=== PATIENT | male | born 1950 | race Caucasian/White ===

== ENCOUNTER 2019-05-20 19:27 | Emergency (ER) | payer BC, MEDICARE ==
[2019-05-20 19:40] VITALS: TEMP 98
[2019-05-20] MEDS ORDERED: HYDROmorphone 1 MG/ML 1 ML SYRINGE IVP STA (20:21)
[2019-05-20] MEDS ORDERED: TOPICAL SKIN ADHESIVE 1 EACH AMP TOPICAL ONE (20:22)
--- NOTE | 2019-05-20 20:41 | ED ---
Fall HPI - General Source: patient, EMS, RN notes reviewed Mode of arrival: EMS Limitations: no limitations <Juan Antonio Beltre - Last Filed: 05/20/19 22:31> <Helder Garcia - Last Filed: 05/20/19 23:30> - General Chief Complaint: Fall Stated Complaint: Fall Time Seen by Provider: 05/20/19 20:16 - History of Present Illness Initial Comments: This a 68-year-old male presents emergency department via EMS chief complaint of slip and fall. Patient states he was outside sitting on some ice and fell onto his left side. Patient did strike his head he has a laceration noted to his left side of his forehead. Patient did not lose consciousness. Has complains of left shoulder pain denies neck, back pain, hip pain. His tetanus is up-to-date within last one year. Patient states his primary complaint is left shoulder pain he was given morphine by EMS. (Juan Antonio Beltre) - Related Data Home Medications Medication Instructions Recorded Confirmed Atorvastatin [Lipitor] 40 mg PO HS 05/20/19 05/20/19 Furosemide [Lasix] 20 mg PO BID 05/20/19 05/20/19 Gemfibrozil [Lopid] 600 mg PO AC-BID 05/20/19 05/20/19 Metoprolol Tartrate [Lopressor] 50 mg PO BID 05/20/19 05/20/19 metFORMIN HCL 500 mg PO BID 05/20/19 05/20/19 tiZANidine [Zanaflex] 4 mg PO BID@0600,1200 05/20/19 05/20/19 tiZANidine [Zanaflex] 8 mg PO HS 05/20/19 05/20/19 Allergies Allergy/AdvReac Type Severity Reaction Status Date / Time No Known Allergies Allergy Verified 05/20/19 21:26 Review of Systems ROS Other: All systems not noted in ROS Statement are negative. <Juan Antonio Beltre - Last Filed: 05/20/19 22:31> ROS Other: All systems not noted in ROS Statement are negative. <Helder Garcia - Last Filed: 05/20/19 23:30> ROS Statement: Those systems with pertinent positive or pertinent negative responses have been documented in the HPI. Past Medical History Past Medical History: Diabetes Mellitus, Hypertension History of Any Multi-Drug Resistant Organisms: None Reported Past Surgical History: Unable to Obtain Past Psychological History: No Psychological Hx Reported Smoking Status: Never smoker Past Alcohol Use History: None Reported Past Drug Use History: Marijuana <Juan Antonio Beltre M - Last Filed: 05/20/19 22:31> General Exam Limitations: physical limitation General appearance: alert, in no apparent distress Head exam: Present: atraumatic, normocephalic. Absent: normal inspection (3 cm laceration the left forehead) Eye exam: Present: normal appearance, PERRL, EOMI. Absent: scleral icterus, conjunctival injection, periorbital swelling ENT exam: Present: normal exam, normal oropharynx, mucous membranes moist Neck exam: Present: normal inspection, full ROM. Absent: tenderness, meningismus, lymphadenopathy Respiratory exam: Present: normal lung sounds bilaterally. Absent: respiratory distress, wheezes, rales, rhonchi, stridor Cardiovascular Exam: Present: regular rate, normal rhythm, normal heart sounds. Absent: systolic murmur, diastolic murmur, rubs, gallop, clicks Extremities exam: Present: other (Left shoulder there is obvious deformity, appears to be dislocated, neurovascular intact remaining extremity exam within normal limits) Back exam: Present: full ROM. Absent: tenderness, paraspinal tenderness, vertebral tenderness Neurological exam: Present: alert, oriented X3, CN II-XII intact, reflexes normal. Absent: motor sensory deficit Skin exam: Present: warm, dry, intact, normal color. Absent: rash <Juan Antonio Beltre M - Last Filed: 05/20/19 22:31> Course Vital Signs 05/20/19 05/20/19 05/20/19 19:35 22:14 22:21 Temperature 98.0 F Pulse Rate 76 76 80 Respiratory 16 18 18 Rate Blood Pressure 100/48 119/74 162/92 O2 Sat by Pulse 93 L 97 98 Oximetry 05/20/19 05/20/19 05/20/19 22:25 22:30 22:35 Temperature Pulse Rate 74 75 79 Respiratory 17 18 18 Rate Blood Pressure 137/81 133/78 142/78 O2 Sat by Pulse 98 98 98 Oximetry 05/20/19 05/20/19 22:40 22:55 Temperature Pulse Rate 79 79 Respiratory 17 18 Rate Blood Pressure 145/76 133/78 O2 Sat by Pulse 99 98 Oximetry Procedures - Laceration Laceration #1 Consent Obtained: verbal consent Indication: laceration Site: face Size (cm): 3 Description: linear Depth: simple, single layer Pre-repair: wound explored, irrigated extensively, deep structures intact Type of Sutures: other (Dermal adhesive) Patient Tolerated Procedure: well, no complications <Juan Antonio Beltre - Last Filed: 05/20/19 22:31> - Orthopedic Joint Reduction Joint #1 Consent Obtained: written consent Side: left Joint Reduction Location: shoulder Analgesia: procedural sedation Shoulder Technique Used (if applicable): external rotation Post-Reduction Neuro Exam: intact Post-Reduction Vascular Exam: intact Post Reduction X-Ray Obtained: Yes Post Reduction X-Ray Results: reduced Splint Applied: Yes Patient Tolerated Procedure: well, no complications - Procedural Sedation Indications: fracture/dislocation reduction ASA Class: II Mallampati Airway Score: 4 Preparation: air sampling and monitoring applied, pulse oximeter, capnometry used, supplemental O2 applied, suction/airway equipment at bedside, IV secured IV Etomidate Dose (mgs): 20 Complications: none Patient Tolerated Procedure: well, no complications <Helder Garcia - Last Filed: 05/20/19 23:30> Medical Decision Making <Juan Antonio Beltre - Last Filed: 05/20/19 22:31> <Helder Garcia - Last Filed: 05/20/19 23:30> - Medical Decision Making 59-year-old male presented for fall, head injury, left shoulder injury. Patient had dislocated her left shoulder which was reduced with no comp occasional was placed in a sling. Patient will follow-up with orthopedics. Patient CT of his brain, C-spine is unremarkable his laceration was cleaned, closed using exofin . Patient is discharged in stable condition. Return parameters were discussed. (Juan Antonio Beltre) I saw this patient in conjunction with the physician medical assistant per diem. I performed independent history and physical exam. Agree with case management. (Lj Garcia ) Disposition Is patient prescribed a controlled substance at d/c from ED?: No Time of Disposition: 22:39 <Juan Antonio Beltre - Last Filed: 05/20/19 22:31> <Helder Garcia - Last Filed: 05/20/19 23:30> Clinical Impression: Fall, Head injury, Laceration of face, Dislocation of left shoulder joint Disposition: HOME SELF-CARE Condition: Stable Instructions (If sedation given, give patient instructions): Shoulder Dislocation (ED), Moderate Sedation (ED) Additional Instructions: Please return to the Emergency Department if symptoms worsen or any other concerns. Referrals: Elvira Wei MD [Primary Care Provider] - 1-2 days Ivan Regalado MD [STAFF PHYSICIAN] - 1-2 days
--- NOTE | 2019-05-20 21:03 | XR ---
EXAMINATION TYPE: XR shoulder limited LT DATE OF EXAM: 05/20/2019 COMPARISON: NONE HISTORY: Fall. Pain. TECHNIQUE: 2 views FINDINGS: There is anterior dislocation of the humeral head. I see no fracture. IMPRESSION: Anterior dislocation.
[2019-05-20] MEDS ORDERED: ETOMIDATE 2 MG/ML 10 ML VIAL IV STA (21:09)
--- NOTE | 2019-05-20 21:22 | CT ---
EXAMINATION TYPE: CT brain nicola wo con DATE OF EXAM: 05/20/2019 COMPARISON: None HISTORY: Fall. Headache. Neck pain CT DLP: 1983 mGycm Automated exposure control for dose reduction was used. Multiple axial sections were obtained from the skull base to T1 vertebra without contrast. Multiple a xial sections were obtained of the brain without contrast. FINDINGS: There is mild cerebral cortical atrophy. There is no mass effect nor midline shift. There is no sign of intracranial hemorrhage. The calvarium is intact. Cervical vertebra have fairly normal spacing and alignment for the patient's age. Posterior elements are intact. Facet joints are intact. There is no evidence of a fracture. IMPRESSION: Minimal cerebral atrophy. No acute intracranial abnormality. negative CT scan cervical spine.
[2019-05-20] MEDS ORDERED: ACET/COD 300 MG/30 MG STARTER PACK 6 TAB BTL PO STA (22:40)
--- NOTE | 2019-05-20 22:55 | XR ---
EXAMINATION TYPE: XR shoulder limited LT DATE OF EXAM: 05/20/2019 COMPARISON: Today HISTORY: Post reduction TECHNIQUE: Single view FINDINGS: There is anatomic reduction of the glenohumeral joint. IMPRESSION: No complicating process seen. Anatomic reduction. No fracture.
[2019-05-20 23:05] VITALS: RESP 18
[2019-05-20 23:58] VITALS: PULSE 80
[2019-05-21 00:17] VITALS: BP 133/80
== END 2019-05-21 00:21 | disposition home or self-care (01) ==
LOC: EC 19:27
DX: S01.81XA Laceration without foreign body of other part of head, initial encounter (principal); S43.005A Unspecified dislocation of left shoulder joint, initial encounter; E11.9 Type 2 diabetes mellitus without complications; I10 Essential (primary) hypertension; Z79.84 Long term (current) use of oral hypoglycemic drugs; Z79.899 Other long term (current) drug therapy; W18.09XA Striking against other object with subsequent fall, initial encounter
CPT/HCPCS: 73020; 72125; 70450; 99284; 23650; 12013; J1170

== ENCOUNTER 2023-09-17 15:49 | Inpatient (IN) | payer MEDICARE, OTHER ==
--- NOTE | 2023-09-17 15:58 | ED ---
Weakness HPI - General Stated complaint: N/V/D Poss Sepsis Time Seen by Provider: 09/17/23 15:56 Source: patient, RN notes reviewed, old records reviewed Mode of arrival: EMS Limitations: no limitations - History of Present Illness Initial comments: This is a 73-year-old male to the ER today. Patient presents today for evaluation of weakness. Patient had nausea vomiting diarrhea weakness persisting and getting worse for about a week now. He is also has a known lower extremity wound which is poorly healed. Patient does not feel well, weak and tired MD Complaint: generalized weakness, lack of energy, difficulty walking -: days(s) Location: generalized Severity: severe Severity scale (1-10): 9 Quality: numbness Consistency: constant Improves with: none Worsens with: none Context: recent illness, history of similar, depression Associated Symptoms: denies other symptoms - Related Data Home Medications Medication Instructions Recorded Confirmed Atorvastatin [Lipitor] 40 mg PO HS 05/20/19 09/17/23 Metoprolol Tartrate [Lopressor] 50 mg PO BID 05/20/19 09/17/23 tiZANidine [Zanaflex] 4 mg PO BID@0900,1200 05/20/19 09/17/23 tiZANidine [Zanaflex] 8 mg PO HS 05/20/19 09/17/23 Acetaminophen [Tylenol Extra 1,000 mg PO TID 09/17/23 09/17/23 Strength] Aspirin EC [Ecotrin Low Dose] 81 mg PO DAILY 09/17/23 09/17/23 Furosemide [Lasix] 40 mg PO BID 09/17/23 09/17/23 HYDROcodone/APAP 5-325MG [Denbo 1 tab PO BID 09/17/23 09/17/23 5-325] Allergies Allergy/AdvReac Type Severity Reaction Status Date / Time No Known Allergies Allergy Verified 09/17/23 17:34 Review of Systems ROS Statement: Those systems with pertinent positive or pertinent negative responses have been documented in the HPI. ROS Other: All systems not noted in ROS Statement are negative. Past Medical History Past Medical History: Diabetes Mellitus, Hypertension History of Any Multi-Drug Resistant Organisms: None Reported Past Surgical History: Unable to Obtain Past Psychological History: No Psychological Hx Reported Smoking Status: Never smoker Past Alcohol Use History: None Reported Past Drug Use History: Marijuana General Exam Limitations: no limitations General appearance: alert, in no apparent distress Head exam: Present: atraumatic, normocephalic, normal inspection Eye exam: Present: normal appearance, PERRL, EOMI. Absent: scleral icterus, conjunctival injection, periorbital swelling ENT exam: Present: normal exam, mucous membranes moist Neck exam: Present: normal inspection. Absent: tenderness, meningismus, lymphadenopathy Respiratory exam: Present: normal lung sounds bilaterally. Absent: respiratory distress, wheezes, rales, rhonchi, stridor Cardiovascular Exam: Present: regular rate, normal rhythm, normal heart sounds. Absent: systolic murmur, diastolic murmur, rubs, gallop, clicks GI/Abdominal exam: Present: soft, normal bowel sounds. Absent: distended, tenderness, guarding, rebound, rigid Extremities exam: Present: normal inspection, full ROM, normal capillary refill. Absent: tenderness, pedal edema, joint swelling, calf tenderness Back exam: Present: normal inspection Neurological exam: Present: alert, oriented X3, CN II-XII intact Psychiatric exam: Present: normal affect, normal mood Skin exam: Present: warm, dry, intact, normal color. Absent: rash Course Vital Signs 09/17/23 09/17/23 09/17/23 15:52 17:00 18:00 Temperature 98.4 F Pulse Rate 105 H 102 H 96 Respiratory 20 18 20 Rate Blood Pressure 145/92 156/98 146/88 O2 Sat by Pulse 94 L 97 98 Oximetry 09/17/23 20:10 Temperature Pulse Rate 98 Respiratory 20 Rate Blood Pressure 147/81 O2 Sat by Pulse 97 Oximetry - Reevaluation(s) Reevaluation #1: 09/17/23 18:03 Medical records reviewed Reevaluation #2: 09/17/23 18:03 Patient symptoms unchanged Reevaluation #3: 09/17/23 18:03 Patient informed of results and questions answered Reevaluation #4: Was pt. sent in by a medical professional or institution (, PA, COPY CAMERA OPERATOR, urgent care, hospital, or [facility]...) When possible be specific @ -no Did you speak to anyone other than the patient for history (EMS, parent, family, police, friend...)? What history was obtained from this source @ -no Did you review nursing and triage notes (agree or disagree)? Why? @ -agree Are old charts reviewed (outside hosp., previous admission, EMS record, old EKG, old radiological studies, urgent care reports/EKG's, [facility] records)? Report findings @ -yes Differential Diagnosis (chest pain, altered mental status, abdominal pain women, abdominal pain men, vaginal bleeding, weakness, fever, dyspnea, syncope, headache, dizziness, GI bleed, back pain, seizure, CVA, palpatations, mental health, musculoskeletal)? @ -prior EKG interpreted by me (3pts min.). @ -yes X-rays interpreted by me (1pt min.). @ -no CT interpreted by me (1pt min.). @ -no U/S interpreted by me (1pt. min.). @ -yes negative for acute disease What testing was considered but not performed or refused? (CT, X-rays, U/S, labs)? Why? @ -none What meds were considered but not given or refused? Why? @ -none Did you discuss the management of the patient with other professionals (professionals i.e. , PA, COPY CAMERA OPERATOR, lab, RT, psych nurse, social work coordinator, literature teacher, teacher, appeals officer, business case analyst)? Give summary @ -no Was smoking cessation discussed for >3mins.? @ -no Were there social determinants of health that impacted care today? How? (Homelessness, low income, unemployed, alcoholism, drug addiction, transportation, low edu. Level, literacy, decrease access to med. care, skilled nursing, rehab)? @ -none Was there de-escalation of care discussed even if they declined (Discuss DNR or withdrawal of care, Hospice)? DNR status @ -no What co-morbidities impacted this encounter? (DM, HTN, Smoking, COPD, CAD, Cancer, CVA, ARF, Chemo, Hep., AIDS, mental health diagnosis, sleep apnea, morbid obesity)? @ -none Was patient admitted / discharged? Hospital course, mention meds given and route, prescriptions, significant lab abnormalities, going to OR and other pertinent info. @ - 73 male with significant cellulitis of the right lower extremity. Patient will be admitted for IV antibiotics and monitoring of diarrhea with persistent gastroenteritis as well. Multiple electrolyte abnormalities Admitted Was critical care preformed (if so, how long)? @ -no Undiagnosed new problem with uncertain prognosis? @ -no Drug Therapy requiring intensive monitoring for toxicity (Heparin, Nitro, Insulin, Cardizem)? @ -no Were any procedures done? @ -no Diagnosis/symptom? @ -Gastroenteritis right lower extremity cellulitis nausea vomiting diarrhea Acute, or Chronic, or Acute on Chronic? @ -Acute Uncomplicated (without systemic symptoms) or Complicated (systemic symptoms)? @ -Complicated Side effects of treatment? @ -no Exacerbation, Progression, or Severe Exacerbation? @ -exacerbation Poses a threat to life or bodily function? How? (Chest pain, USA, DC, pneumonia, PE, COPD, DKA, ARF, appy, cholecystitis, CVA, Diverticulitis, Homicidal, Suicidal, threat to staff... and all critical care pts) @ -yes negative for acute disease Reevaluation #5: Differential Weakness: Hypoglycemia, shock, sepsis, hyponatremia, anemia, infection, DC, ETOH, adverse medicine reaction, overdose, stroke, this is not meant to be an all-inclusive list. - Consultations Consultation #1: Spoke with [facility] who agrees to admit this patient EKG Findings - EKG Comments: EKG Findings:: EKG is sinus tachycardia 105 GA 202 QRS 169 QTc 440 - EKG Results: EKG: interpreted by DOMINIC Medical Decision Making - Medical Decision Making 73 male with significant cellulitis of the right lower extremity. Patient will be admitted for IV antibiotics and monitoring of diarrhea with persistent gastroenteritis as well. Multiple electrolyte abnormalities - Lab Data Result diagrams: 09/24/23 08:16 09/24/23 08:16 Lab Results 09/17/23 09/17/23 09/17/23 Range/Units 15:59 15:59 15:59 WBC 16.7 H (3.8-10.6) k/uL RBC 4.36 (4.30-5.90) m/uL Hgb 14.6 (13.0-17.5) gm/dL Hct 42.2 (39.0-53.0) % MCV 96.7 (80.0-100.0) fL MCH 33.5 (25.0-35.0) pg MCHC 34.7 (31.0-37.0) g/dL RDW 14.1 (11.5-15.5) % Plt Count 272 (150-450) k/uL MPV 7.7 Neutrophils % 84 % Lymphocytes % 6 % Monocytes % 7 % Eosinophils % 0 % Basophils % 0 % Neutrophils # 14.1 H (1.3-7.7) k/uL Lymphocytes # 1.0 (1.0-4.8) k/uL Monocytes # 1.1 H (0-1.0) k/uL Eosinophils # 0.0 (0-0.7) k/uL Basophils # 0.0 (0-0.2) k/uL Poikilocytosis Slight PT 10.9 (10.0-12.5) sec INR 1.0 (<1.2) APTT 28.3 (22.0-30.0) sec Sodium 137 (137-145) mmol/L Potassium 2.9 L (3.5-5.1) mmol/L Chloride 101 (98-107) mmol/L Carbon Dioxide 26 (22-30) mmol/L Anion Gap 10 mmol/L BUN 21 H (9-20) mg/dL Creatinine 1.25 (0.66-1.25) mg/dL Est GFR (CKD-EPI)AfAm 66 (>60 ml/min/1.73 sqM) Est GFR (CKD-EPI)NonAf 57 (>60 ml/min/1.73 sqM) Glucose 126 H (74-99) mg/dL Lactic Ac Sepsis Rflx Plasma Lactic Acid Jonathan (0.7-2.0) mmol/L Calcium 8.9 (8.4-10.2) mg/dL Phosphorus 2.5 (2.5-4.5) mg/dL Magnesium 1.8 (1.6-2.3) mg/dL Total Bilirubin 4.0 H (0.2-1.3) mg/dL AST 54 (17-59) U/L ALT 29 (4-49) U/L Alkaline Phosphatase 84 (38-126) U/L Troponin I (0.000-0.034) ng/mL NT-Pro-B Natriuret Pep 1420 pg/mL Total Protein 6.9 (6.3-8.2) g/dL Albumin 3.6 (3.5-5.0) g/dL Lipase 34 (23-300) U/L 09/17/23 09/17/23 09/17/23 Range/Units 15:59 15:59 16:58 WBC (3.8-10.6) k/uL RBC (4.30-5.90) m/uL Hgb (13.0-17.5) gm/dL Hct (39.0-53.0) % MCV (80.0-100.0) fL MCH (25.0-35.0) pg MCHC (31.0-37.0) g/dL RDW (11.5-15.5) % Plt Count (150-450) k/uL MPV Neutrophils % % Lymphocytes % % Monocytes % % Eosinophils % % Basophils % % Neutrophils # (1.3-7.7) k/uL Lymphocytes # (1.0-4.8) k/uL Monocytes # (0-1.0) k/uL Eosinophils # (0-0.7) k/uL Basophils # (0-0.2) k/uL Poikilocytosis PT (10.0-12.5) sec INR (<1.2) APTT (22.0-30.0) sec Sodium (137-145) mmol/L Potassium (3.5-5.1) mmol/L Chloride (98-107) mmol/L Carbon Dioxide (22-30) mmol/L Anion Gap mmol/L BUN (9-20) mg/dL Creatinine (0.66-1.25) mg/dL Est GFR (CKD-EPI)AfAm (>60 ml/min/1.73 sqM) Est GFR (CKD-EPI)NonAf (>60 ml/min/1.73 sqM) Glucose (74-99) mg/dL Lactic Ac Sepsis Rflx Y Plasma Lactic Acid Jonathan 2.9 H* (0.7-2.0) mmol/L Calcium (8.4-10.2) mg/dL Phosphorus (2.5-4.5) mg/dL Magnesium (1.6-2.3) mg/dL Total Bilirubin (0.2-1.3) mg/dL AST (17-59) U/L ALT (4-49) U/L Alkaline Phosphatase (38-126) U/L Troponin I 0.052 H* (0.000-0.034) ng/mL NT-Pro-B Natriuret Pep pg/mL Total Protein (6.3-8.2) g/dL Albumin (3.5-5.0) g/dL Lipase (23-300) U/L - Radiology Data Radiology results: report reviewed (US Right Lower Extremity negative for acute disease ), image reviewed Disposition Clinical Impression: Gastroenteritis, Dehydration, Weakness, Cellulitis of right leg, Diabetes mellitus, Diarrhea Disposition: ADMITTED IP TO THIS HOSP Condition: Serious Is patient prescribed a controlled substance at d/c from ED?: No Time of Disposition: 18:00
[2023-09-17] MEDS: ONDANSETRON 4 MG/2 ML VIAL IVP STA (16:04)
[2023-09-17] MEDS: SODIUM CHLORIDE 0.9% 1,000 ML IV STA (16:05)
[2023-09-17 16:40] LABS: ALT 29 U/L (4-49); AST 54 U/L (17-59); African American GFR (CKD) 66 (>60 ml/min/1.73 sqM); Albumin 3.6 g/dL (3.5-5.0); Alkaline Phosphatase 84 U/L (38-126); Anion Gap 10 mmol/L; Basophils % (A) 0 %; Blood Urea Nitrogen 21 mg/dL (9-20); Calcium 8.9 mg/dL (8.4-10.2); Carbon Dioxide 26 mmol/L (22-30); Chloride 101 mmol/L (98-107); Eosinophils % (A) 0 %; Glucose 126 mg/dL (74-99); HCT 42.2 % (39.0-53.0); HGB 14.6 gm/dL (13.0-17.5); Lipase 34 U/L (23-300); Lymphocytes % (A) 6 %; MCH 33.5 pg (25.0-35.0); MCHC 34.7 g/dL (31.0-37.0); MCV 96.7 fL (80.0-100.0); Magnesium 1.8 mg/dL (1.6-2.3); Mean Platelet Volume 7.7; Monocytes # (A) 1.1 k/uL (0-1.0); Monocytes % (A) 7 %; Neutrophils # (A) 14.1 k/uL (1.3-7.7); Neutrophils % (A) 84 %; Non-African American GFR(CKD) 57 (>60 ml/min/1.73 sqM); Phosphorus 2.5 mg/dL (2.5-4.5); Platelet Count 272 k/uL (150-450); Poikilocytosis Slight; Potassium 2.9 mmol/L (3.5-5.1); RBC 4.36 m/uL (4.30-5.90); RDW 14.1 % (11.5-15.5); Sodium 137 mmol/L (137-145); Total Protein 6.9 g/dL (6.3-8.2); WBC 16.7 k/uL (3.8-10.6)
[2023-09-17 16:44] LABS: Partial Thromboplastin Time 28.3 sec (22.0-30.0); Prothrombin Time 10.9 sec (10.0-12.5)
[2023-09-17 16:46] LABS: NT-Pro-B-Type Natriuretic Pept 1420 pg/mL
[2023-09-17] MEDS ORDERED: VANCOMYCIN IV PER PHARMACY 1 EACH MISC MISCELLANE PRN (17:55)
[2023-09-17] MEDS ORDERED: NALOXONE 0.4 MG/ML 1 ML VIAL IV PRN (18:01)
--- NOTE | 2023-09-17 18:55 | US ---
EXAMINATION TYPE: US venous doppler duplex LE RT DATE OF EXAM: 09/17/2023 6:30 PM COMPARISON: NONE CLINICAL INDICATION: Male, 73 years old with history of dvt; Patient states leg swelling, wound on mi d calf with bandages. Patient unable to move leg. States that he has never had a DVT before, and that he takes an aspirin daily. SIDE PERFORMED: Right TECHNIQUE: The lower extremity deep venous system is examined utilizing real time linear array sonog judith with graded compression, doppler sonography and color-flow sonography. VESSELS IMAGED: Common Femoral Vein Deep Femoral Vein Greater Saphenous Vein * Femoral Vein Popliteal Vein Small Saphenous Vein * Proximal Calf Veins (* superficial vessels) Suboptimal visualization due to leg swelling and lack of patient leg mobility The deep venous system of the right lower extremity from the common femoral vein to the proximal calf veins is patent and compressible with augmentable flow with normal waveforms. IMPRESSION: No evidence of right lower extremity DVT from the common femoral vein to the proximal calf veins
[2023-09-17] MEDS: HYDROmorphone 1 MG/ML 1 ML SYRINGE IVP STA (19:02)
[2023-09-17] MEDS: SODIUM CHLORIDE 0.9% 1,000 ML IV SCH (19:06)
[2023-09-17] MEDS: VANCOMYCIN 2,000 MG in SODIUM CHLORIDE 0.9% 500 ML 500 ML IVPB STA (20:07)
[2023-09-17] MEDS: POTASSIUM BICARBONATE/CIT AC 20 MEQ TABLET.EFF PO ONE (20:08)
[2023-09-17] MEDS: METOPROLOL TARTRATE 50 MG TAB PO SCH (23:17)
[2023-09-17] MEDS: tiZANidine 4 MG TAB PO SCH (23:36)
[2023-09-17] MEDS: ACETAMINOPHEN TAB 325 MG TAB PO PRN (23:36)
[2023-09-17] MEDS: ATORVASTATIN 40 MG TAB PO SCH (23:36)
[2023-09-17] MEDS: FUROSEMIDE 40 MG TAB PO SCH (23:36)
[2023-09-18] MEDS: SODIUM CHLORIDE 0.9% 500 ML 500 ML IV ONE (01:34)
[2023-09-18 05:05] LABS: Appearance,Urine Cloudy (Clear); Bacteria,Urine Rare /hpf; Bilirubin,Urine Negative (Negative); Blood,Urine Large (Negative); Color,Urine Yellow; Glucose,Urine (UA) Trace (Negative); Ketones,Urine Trace (Negative); Leukocyte Esterase,Urine Negative (Negative); Mucus,Urine Rare /hpf; Nitrite,Urine Negative (Negative); PH, Urine 6.5 (5.0-8.0); Protein,Urine 2+ (Negative); RBC,Urine 2 /hpf (0-5); Urobilinogen,Urine <2.0 mg/dL (<2.0); WBC,Urine 3 /hpf (0-5)
[2023-09-18] MEDS: PANTOPRAZOLE 40 MG/10 ML VIAL IV SCH (08:58)
[2023-09-18 09:00] LABS: Basophils # (A) 0.04 X 10*3/uL (0.00-0.10); Basophils % (A) 0.3 %; Eosinophils # (A) 0.03 X 10*3/uL (0.04-0.35); Eosinophils % (A) 0.2 %; HCT 32.1 % (39.6-50.0); HGB 10.7 g/dL (13.0-17.0); Lymphocytes # (A) 0.76 X 10*3/uL (0.90-5.00); Lymphocytes % (A) 5.8 %; MCH 33.1 pg (27.0-32.0); MCHC 33.3 g/dL (32.0-37.0); MCV 99.4 FL (80.0-97.0); Mean Platelet Volume 9.3 FL (9.5-12.2); Monocytes # (A) 1.24 X 10*3/uL (0.20-1.00); Monocytes % (A) 9.5 %; NRBC Per 100 WBC 0 X 10*3/uL (0.00-0.01); Neutrophils # (A) 10.86 X 10*3/uL (1.80-7.70); Neutrophils % (A) 83.5 %; Platelet Count 177 X 10*3/uL (140-440); RBC 3.23 X 10*6/uL (4.40-5.60); RDW 14.6 % (11.5-14.5); WBC 13.02 X 10*3/uL (4.50-10.00)
[2023-09-18 09:06] LABS: BUN/Creat Ratio 14.67 Ratio (12.00-20.00); Chloride 103 mmol/L (96-109); Glucose 137 mg/dL (70-110); Magnesium 1.8 mg/dL (1.5-2.4); Sodium 138 mmol/L (135-145)
[2023-09-18 09:07] LABS: ALT 28 U/L (10-49); AST 64 U/L (14-35); Albumin 2.8 g/dL (3.8-4.9); Albumin/Globulin Ratio 1.22 Ratio (1.60-3.17); Alkaline Phosphatase 53 U/L (41-126); Calcium 7.8 mg/dL (8.7-10.3); Globulin 2.3 g/dL (1.6-3.3); Total Bilirubin 1.9 mg/dL (0.3-1.2); Total Protein 5.1 g/dL (6.2-8.2)
[2023-09-18] MEDS ORDERED: VANCOMYCIN 2,000 MG in SODIUM CHLORIDE 0.9% 500 ML 500 ML IVPB SCH (12:00)
[2023-09-18] MEDS: VANCOMYCIN 2,500 MG in SODIUM CHLORIDE 0.9% 500 ML 500 ML IVPB SCH (12:02)
[2023-09-18] MEDS: HYDROcodone/APAP 5-325MG 1 EACH TAB PO PRN (12:15)
--- NOTE | 2023-09-18 13:53 | P.CONS ---
History of Present Illness - Reason for Consult Consult date: 09/18/23 - History of Present Illness Patient is a 73-year-old male with a past medical history significant for hypertension hyperlipidemia atrial fibrillation chronic back pain patient has been dealing with a chronic swelling to bilateral lower extremity symptom has been going on for more than a month noticed to have increasing swelling ruptured blister and redness to the leg with worsening symptoms and the patient did present to the hospital, patient did have some chills at home and he did have a fever of 102 F last night patient is afebrile this morning patient was tachycardic mildly hypertensive and also hypoxic currently on a 3 L nasal cannula oxygen patient did have white count of 16.7 creatinine is 1.25 lactic acid was 2.9 liver enzymes are normal urine has been negative patient was started on vancomycin infectious disease was consulted this morning for further management of antibiotic therapy patient did have lower extremity Doppler that has been negative for DVT, as mentioned earlier main symptom has been lower extremity swelling and redness some superficial ulceration from ruptured blister has been complaining of pain to the lower extremity mostly dull aching to sharp moderate intensity without radiation and no purulent drainage Past Medical History Past Medical History: Atrial Fibrillation, Hyperlipidemia, Hypertension Additional Past Medical History / Comment(s): chronic back pain, four buldging discs to back History of Any Multi-Drug Resistant Organisms: None Reported Past Surgical History: Heart Catheterization, Orthopedic Surgery Additional Past Surgical History / Comment(s): right knee sx Smoking Status: Never smoker Medications and Allergies Home Medications Medication Instructions Recorded Confirmed Type Atorvastatin [Lipitor] 40 mg PO HS 05/20/19 09/17/23 History Metoprolol Tartrate [Lopressor] 50 mg PO BID 05/20/19 09/17/23 History tiZANidine [Zanaflex] 4 mg PO BID@0900,1200 05/20/19 09/17/23 History tiZANidine [Zanaflex] 8 mg PO HS 05/20/19 09/17/23 History Acetaminophen [Tylenol Extra 1,000 mg PO TID 09/17/23 09/17/23 History Strength] Aspirin EC [Ecotrin Low Dose] 81 mg PO DAILY 09/17/23 09/17/23 History Furosemide [Lasix] 40 mg PO BID 09/17/23 09/17/23 History HYDROcodone/APAP 5-325MG [[place] 1 tab PO BID 09/17/23 09/17/23 History 5-325] Allergies Allergy/AdvReac Type Severity Reaction Status Date / Time No Known Allergies Allergy Verified 09/17/23 17:34 Physical Exam Vitals: Vital Signs Temp Pulse Pulse Resp BP BP BP 09/18/23 08:17 09/18/23 06:44 98.0 F 71 18 09/18/23 02:12 93/54 96/57 09/18/23 00:59 99.2 F 67 19 80/48 79/45 09/17/23 22:44 102 F H 102 H 20 93/55 09/17/23 20:10 98 20 147/81 09/17/23 18:00 96 20 146/88 09/17/23 17:00 102 H 18 156/98 09/17/23 15:52 98.4 F 105 H 20 145/92 BP Pulse Ox 09/18/23 08:17 96 09/18/23 06:44 96/59 90 L 09/18/23 02:12 09/18/23 00:59 92/53 97 09/17/23 22:44 94 L 09/17/23 20:10 97 09/17/23 18:00 98 09/17/23 17:00 97 09/17/23 15:52 94 L Intake and Output 09/17/23 09/18/23 09/18/23 22:59 06:59 14:59 Intake Total 400 Output Total 100 Balance 300 Intake: Oral 400 Output: Urine 100 Other: Voiding Method Incontinent External Catheter # Voids 1 Weight 149.685 kg 149.685 kg Elderly male lying in bed in no distress Respiratory system unlabored breathing decreased breath sound the base Heart S1-S2 regular Abdominal soft, no tenderness Extremities, patient did have diffuse swelling to bilateral lower extremity with redness and some superficial ulceration from ruptured blister Skin no rashes, no masses palpable Patient is awake alert oriented x 3 mood and affect is normal Exam compleetd with help of [employer] Results CBC & Chem 7: 09/18/23 03:36 09/18/23 03:36 Labs: Abnormal Lab Results - Last 24 Hours (Table) 09/17/23 09/17/23 09/17/23 Range/Units 15:59 15:59 15:59 WBC 16.7 H (3.8-10.6) k/uL RBC (4.40-5.60) X 10*6/uL Hgb (13.0-17.0) g/dL Hct (39.6-50.0) % MCV (80.0-97.0) FL MCH (27.0-32.0) pg RDW (11.5-14.5) % MPV (9.5-12.2) FL Immature Gran # (0.00-0.04) X 10*3/uL Neutrophils # 14.1 H (1.3-7.7) k/uL Lymphocytes # (0.90-5.00) X 10*3/uL Monocytes # 1.1 H (0-1.0) k/uL Eosinophils # (0.04-0.35) X 10*3/uL Potassium 2.9 L (3.5-5.1) mmol/L BUN 21 H (9-20) mg/dL Est GFR (CKD-EPI) (>=60) Glucose 126 H (74-99) mg/dL Plasma Lactic Acid Jonathan 2.9 H* (0.7-2.0) mmol/L Calcium (8.7-10.3) mg/dL Total Bilirubin 4.0 H (0.2-1.3) mg/dL AST (14-35) U/L Troponin I (0.000-0.034) ng/mL Total Protein (6.2-8.2) g/dL Albumin (3.8-4.9) g/dL Albumin/Globulin Ratio (1.60-3.17) Ratio Urine Protein (Negative) Urine Glucose (UA) (Negative) Urine Ketones (Negative) Urine Blood (Negative) Urine Bacteria (None) /hpf Urine Mucus (None) /hpf 09/17/23 09/18/23 09/18/23 Range/Units 15:59 03:36 03:36 WBC 13.02 H (3.8-10.6) k/uL RBC 3.23 L (4.40-5.60) X 10*6/uL Hgb 10.7 L (13.0-17.0) g/dL Hct 32.1 L (39.6-50.0) % MCV 99.4 H (80.0-97.0) FL MCH 33.1 H (27.0-32.0) pg RDW 14.6 H (11.5-14.5) % MPV 9.3 L (9.5-12.2) FL Immature Gran # 0.09 H (0.00-0.04) X 10*3/uL Neutrophils # 10.86 H (1.3-7.7) k/uL Lymphocytes # 0.76 L (0.90-5.00) X 10*3/uL Monocytes # 1.24 H (0-1.0) k/uL Eosinophils # 0.03 L (0.04-0.35) X 10*3/uL Potassium 3.0 L (3.5-5.1) mmol/L BUN (9-20) mg/dL Est GFR (CKD-EPI) 49 L (>=60) Glucose 137 H (74-99) mg/dL Plasma Lactic Acid Jonathan (0.7-2.0) mmol/L Calcium 7.8 L (8.7-10.3) mg/dL Total Bilirubin 1.9 H (0.2-1.3) mg/dL AST 64 H (14-35) U/L Troponin I 0.052 H* (0.000-0.034) ng/mL Total Protein 5.1 L (6.2-8.2) g/dL Albumin 2.8 L (3.8-4.9) g/dL Albumin/Globulin Ratio 1.22 L (1.60-3.17) Ratio Urine Protein (Negative) Urine Glucose (UA) (Negative) Urine Ketones (Negative) Urine Blood (Negative) Urine Bacteria (None) /hpf Urine Mucus (None) /hpf 09/18/23 Range/Units 04:40 WBC (3.8-10.6) k/uL RBC (4.40-5.60) X 10*6/uL Hgb (13.0-17.0) g/dL Hct (39.6-50.0) % MCV (80.0-97.0) FL MCH (27.0-32.0) pg RDW (11.5-14.5) % MPV (9.5-12.2) FL Immature Gran # (0.00-0.04) X 10*3/uL Neutrophils # (1.3-7.7) k/uL Lymphocytes # (0.90-5.00) X 10*3/uL Monocytes # (0-1.0) k/uL Eosinophils # (0.04-0.35) X 10*3/uL Potassium (3.5-5.1) mmol/L BUN (9-20) mg/dL Est GFR (CKD-EPI) (>=60) Glucose (74-99) mg/dL Plasma Lactic Acid Jonathan (0.7-2.0) mmol/L Calcium (8.7-10.3) mg/dL Total Bilirubin (0.2-1.3) mg/dL AST (14-35) U/L Troponin I (0.000-0.034) ng/mL Total Protein (6.2-8.2) g/dL Albumin (3.8-4.9) g/dL Albumin/Globulin Ratio (1.60-3.17) Ratio Urine Protein 2+ H (Negative) Urine Glucose (UA) Trace H (Negative) Urine Ketones Trace H (Negative) Urine Blood Large H (Negative) Urine Bacteria Rare H (None) /hpf Urine Mucus Rare H (None) /hpf Assessment and Plan (1) Sepsis Current Visit: Yes Status: Acute Code(s): A41.9 - SEPSIS, UNSPECIFIED ORGANISM SNOMED Code(s): 42104578 (2) Leg wound, right Current Visit: Yes Status: Acute Code(s): S81.801A - UNSPECIFIED OPEN WOUND, RIGHT LOWER LEG, INITIAL ENCOUNTER SNOMED Code(s): 20309300958060595 (3) Cellulitis of right leg Current Visit: Yes Status: Acute Code(s): L03.115 - CELLULITIS OF RIGHT LOWER LIMB SNOMED Code(s): 63505688364644039 Plan: 1patient presented to hospital with sepsis in this patient who did have a diffuse swelling redness to bilateral extremity some superficial ulceration probably blister in this patient noted evidence of fluid overload likely representing a streptococcal cellulitis, clinically not behaving as MRSA or gram-negative infection. 2we will apply Aquacel silver dressing to the open wound followed by Kennedy wrap from just above the toe to below the knee change daily. 3discontinue vancomycin to decrease risk of nephrotoxicity. 4we will start the patient on cefazolin 3 g every 8 hours. We will follow on clinical condition and cultures to further adjust medication if needed Thank you for this consultation we will follow the patient along with you Dictation was produced using [employer] dictation software. please excuse any grammatical, word or spelling errors.
[2023-09-18] MEDS ORDERED: Potassium Replacement Protocol 1 EACH MISC MISCELLANE PRN (13:57)
[2023-09-18] MEDS: POTASSIUM CHLORIDE ER 20 MEQ TAB.ER PO STA (14:19)
[2023-09-18] MEDS: POTASSIUM CHLORIDE ER 20 MEQ TAB.ER PO SCH (14:20)
--- NOTE | 2023-09-18 14:26 | P.HPIM ---
History of Present Illness H&P Date: 09/18/23 Chief Complaint: Right lower extremity infection. Patient is a 73-year-old male with a past medical history of atrial fibrillation not on anticoagulation, hypertension, hyperlipidemia, chronic back pain and morbid obesity with a BMI of 44.8 and also chronic bilateral lower extremity swelling presents to ER with complaints of worsening right lower extremity swelling and ruptured blister along with redness and increased pain. Patient has been having worsening swelling for the past 2 weeks. Patient is currently living by himself and his girlfriend is out of town for the past 2 weeks. Patient was unable to get out of bed and also felt very weak, could not come to hospital.. Patient states that he had prior history of leg cellulitis 2 years ago. Patient was seen by his physician 4 days arthritis and was recommended right knee brace. Patient states that he has been having increased right leg swelling since then. On admission patient was febrile with Tmax 102 F and blood pressure 93/55 pulse 102 and respiration 94% on 3 L oxygen via nasal cannula. Patient take Lasix 40 mg twice daily at home. Laboratory data showed WBC 16.7 hemoglobin 14.6 and platelets 272 Sodium 137 potassium 2.9 chloride 101 bicarb is 26 BUN 21 and creatinine 1.25, total bilirubin 4.0 liver enzymes are not elevated. Troponin 0.052 and proBNP 1420. Right lower extremity duplex scan showed no evidence of DVT. EKG showed sinus tachycardia. Review of Systems Constitutional: Patient has fever. No chills. Generalized weakness and fatigue. s. Abdomen: Patient denied nausea vomiting and diarrhea and abdominal pain. Cardiovascular: Patient denies any chest pain or short of breath no palpitations. Respiratory: patient denied any cough or sputum production. No shortness of breath Neurologic: Patient denied any numbness or tingling. no headache. Musculoskeletal: Patient denies any complaints of joint swelling or deformity. Right lower extremity worsening swelling and redness and fracture blister and wound. Skin: Negative Psychiatric: Negative Endocrine: No heat or cold intolerance. No recent weight gain. Genitourinary: No dysuria or hematuria. All other 14 point ROS negative except the above Past Medical History Past Medical History: Atrial Fibrillation, Hyperlipidemia, Hypertension Additional Past Medical History / Comment(s): chronic back pain, four buldging discs to back History of Any Multi-Drug Resistant Organisms: None Reported Past Surgical History: Heart Catheterization, Orthopedic Surgery Additional Past Surgical History / Comment(s): right knee sx Smoking Status: Never smoker Medications and Allergies Home Medications Medication Instructions Recorded Confirmed Type Atorvastatin [Lipitor] 40 mg PO HS 05/20/19 09/17/23 History Metoprolol Tartrate [Lopressor] 50 mg PO BID 05/20/19 09/17/23 History tiZANidine [Zanaflex] 4 mg PO BID@0900,1200 05/20/19 09/17/23 History tiZANidine [Zanaflex] 8 mg PO HS 05/20/19 09/17/23 History Acetaminophen [Tylenol Extra 1,000 mg PO TID 09/17/23 09/17/23 History Strength] Aspirin EC [Ecotrin Low Dose] 81 mg PO DAILY 09/17/23 09/17/23 History Furosemide [Lasix] 40 mg PO BID 09/17/23 09/17/23 History HYDROcodone/APAP 5-325MG [[place] 1 tab PO BID 09/17/23 09/17/23 History 5-325] Allergies Allergy/AdvReac Type Severity Reaction Status Date / Time No Known Allergies Allergy Verified 09/17/23 17:34 Physical Exam Vitals: Vital Signs Temp Pulse Pulse Resp BP BP BP 09/18/23 08:17 09/18/23 06:44 98.0 F 71 18 09/18/23 02:12 93/54 96/57 09/18/23 00:59 99.2 F 67 19 80/48 79/45 09/17/23 22:44 102 F H 102 H 20 93/55 09/17/23 20:10 98 20 147/81 09/17/23 18:00 96 20 146/88 09/17/23 17:00 102 H 18 156/98 09/17/23 15:52 98.4 F 105 H 20 145/92 BP Pulse Ox 09/18/23 08:17 96 09/18/23 06:44 96/59 90 L 09/18/23 02:12 09/18/23 00:59 92/53 97 09/17/23 22:44 94 L 09/17/23 20:10 97 09/17/23 18:00 98 09/17/23 17:00 97 09/17/23 15:52 94 L Intake and Output 06/01/3009/18/23 09/18/23 22:59 06:59 14:59 Intake Total 400 Output Total 100 Balance 300 Intake: Oral 400 Output: Urine 100 Other: Voiding Method Incontinent External Catheter # Voids 1 Weight 149.685 kg 149.685 kg PHYSICAL EXAMINATION: Patient is lying in the bed comfortably, no acute distress, awake alert and oriented. Morbidly obese. HEENT: Normocephalic. Neck is supple. Pupils reactive. Nostrils clear. Oral cavity is moist. Neck reveals no JVD, carotid bruits, or thyromegaly. CHEST EXAMINATION: Trachea is central. Symmetrical expansion. Bibasilar diminished sounds otherwise lung tunrer clear to auscultation and percussion. CARDIAC: Normal S1, S2 with no gallops. No murmurs ABDOMEN: Soft. Bowel sounds present. No organomegaly. No abdominal bruits. Extremities: Bilateral lower extremity 2+ edema and right lower extremity swelling and redness over the parsons and with ruptured blister and superficial ulceration.. No clubbing or cyanosis Neurologically awake, alert, oriented x3 with well-coordinated movements. No focal deficits noted Skin: No rash or skin lesions. Psychiatric: Coperative. Nonsuicidal Musculoskeletal: No joint swelling or deformity. Normal range of motion. Results CBC & Chem 7: 09/18/23 03:36 09/18/23 03:36 Labs: Abnormal Lab Results - Last 24 Hours (Table) 09/17/23 09/17/23 09/17/23 Range/Units 15:59 15:59 15:59 WBC 16.7 H (3.8-10.6) k/uL RBC (4.40-5.60) X 10*6/uL Hgb (13.0-17.0) g/dL Hct (39.6-50.0) % MCV (80.0-97.0) FL MCH (27.0-32.0) pg RDW (11.5-14.5) % MPV (9.5-12.2) FL Immature Gran # (0.00-0.04) X 10*3/uL Neutrophils # 14.1 H (1.3-7.7) k/uL Lymphocytes # (0.90-5.00) X 10*3/uL Monocytes # 1.1 H (0-1.0) k/uL Eosinophils # (0.04-0.35) X 10*3/uL Potassium 2.9 L (3.5-5.1) mmol/L BUN 21 H (9-20) mg/dL Est GFR (CKD-EPI) (>=60) Glucose 126 H (74-99) mg/dL Plasma Lactic Acid Jonathan 2.9 H* (0.7-2.0) mmol/L Calcium (8.7-10.3) mg/dL Total Bilirubin 4.0 H (0.2-1.3) mg/dL AST (14-35) U/L Troponin I (0.000-0.034) ng/mL Total Protein (6.2-8.2) g/dL Albumin (3.8-4.9) g/dL Albumin/Globulin Ratio (1.60-3.17) Ratio Urine Protein (Negative) Urine Glucose (UA) (Negative) Urine Ketones (Negative) Urine Blood (Negative) Urine Bacteria (None) /hpf Urine Mucus (None) /hpf 09/17/23 09/18/23 09/18/23 Range/Units 15:59 03:36 03:36 WBC 13.02 H (3.8-10.6) k/uL RBC 3.23 L (4.40-5.60) X 10*6/uL Hgb 10.7 L (13.0-17.0) g/dL Hct 32.1 L (39.6-50.0) % MCV 99.4 H (80.0-97.0) FL MCH 33.1 H (27.0-32.0) pg RDW 14.6 H (11.5-14.5) % MPV 9.3 L (9.5-12.2) FL Immature Gran # 0.09 H (0.00-0.04) X 10*3/uL Neutrophils # 10.86 H (1.3-7.7) k/uL Lymphocytes # 0.76 L (0.90-5.00) X 10*3/uL Monocytes # 1.24 H (0-1.0) k/uL Eosinophils # 0.03 L (0.04-0.35) X 10*3/uL Potassium 3.0 L (3.5-5.1) mmol/L BUN (9-20) mg/dL Est GFR (CKD-EPI) 49 L (>=60) Glucose 137 H (74-99) mg/dL Plasma Lactic Acid Jonathan (0.7-2.0) mmol/L Calcium 7.8 L (8.7-10.3) mg/dL Total Bilirubin 1.9 H (0.2-1.3) mg/dL AST 64 H (14-35) U/L Troponin I 0.052 H* (0.000-0.034) ng/mL Total Protein 5.1 L (6.2-8.2) g/dL Albumin 2.8 L (3.8-4.9) g/dL Albumin/Globulin Ratio 1.22 L (1.60-3.17) Ratio Urine Protein (Negative) Urine Glucose (UA) (Negative) Urine Ketones (Negative) Urine Blood (Negative) Urine Bacteria (None) /hpf Urine Mucus (None) /hpf 09/18/23 Range/Units 04:40 WBC (3.8-10.6) k/uL RBC (4.40-5.60) X 10*6/uL Hgb (13.0-17.0) g/dL Hct (39.6-50.0) % MCV (80.0-97.0) FL MCH (27.0-32.0) pg RDW (11.5-14.5) % MPV (9.5-12.2) FL Immature Gran # (0.00-0.04) X 10*3/uL Neutrophils # (1.3-7.7) k/uL Lymphocytes # (0.90-5.00) X 10*3/uL Monocytes # (0-1.0) k/uL Eosinophils # (0.04-0.35) X 10*3/uL Potassium (3.5-5.1) mmol/L BUN (9-20) mg/dL Est GFR (CKD-EPI) (>=60) Glucose (74-99) mg/dL Plasma Lactic Acid Jonathan (0.7-2.0) mmol/L Calcium (8.7-10.3) mg/dL Total Bilirubin (0.2-1.3) mg/dL AST (14-35) U/L Troponin I (0.000-0.034) ng/mL Total Protein (6.2-8.2) g/dL Albumin (3.8-4.9) g/dL Albumin/Globulin Ratio (1.60-3.17) Ratio Urine Protein 2+ H (Negative) Urine Glucose (UA) Trace H (Negative) Urine Ketones Trace H (Negative) Urine Blood Large H (Negative) Urine Bacteria Rare H (None) /hpf Urine Mucus Rare H (None) /hpf Thrombosis Risk Factor Assmnt - DVT/VTE Prophylaxis DVT/VTE Prophylaxis: Pharmacologic Prophylaxis ordered Assessment and Plan Assessment: Right lower extremity cellulitis with ruptured blister and superficial ulceration Sepsis secondary to above Severe hypokalemia Chronic bilateral lower extremity swelling. Paroxysmal atrial fibrillation. Patient is currently in sinus rhythm. Not on anticoagulation. Elevated troponin level Elevated bilirubin level Hypertension Hyperlipidemia Chronic back pain Morbid obesity BMI 44.8 GI and DVT prophylaxis with PPI and Lovenox subcu. Plan: Patient will be continued on antibiotics cefazolin as per ID recommendations. Was given ceftriaxone and vancomycin in the ER. Follow-up wound cultures and blood cultures. IV fluids on hold. Continue Lasix and replace electrolytes/potassium. 2D echocardiogram was ordered due to elevated troponin level. Cardiology consult for evaluation. Continue with daily monitoring and follow-up closely. Prognosis is guarded. Time with Patient: Greater than 30
[2023-09-18] MEDS: ENOXAPARIN 40 MG/0.4 ML SYRINGE SQ SCH (14:41)
--- NOTE | 2023-09-18 15:03 | XR ---
EXAMINATION TYPE: XR chest 1V DATE OF EXAM: 09/18/2023 HISTORY: Shortness of breath. COMPARISON: 01/21/2013 TECHNIQUE: Single view of the chest is submitted. FINDINGS: Demonstrated are scattered senescent parenchymal change. Patchy density right medial lung base may reflect developing pneumonia. Correlate clinically and prog ress studies are recommended. The heart is stable. Hilar and mediastinal structures are within normal limits. Degenerative changes are seen of the dorsal spine. IMPRESSION: 1. Patchy density right medial lung base may reflect developing pneumonia. Correlate clinically and progress studies are recommended.
[2023-09-18] MEDS: ceFAZolin 3 GM in SODIUM CHLORIDE 0.9% 100 ML IVPB SCH (16:18)
[2023-09-18] MEDS: ONDANSETRON 4 MG/2 ML VIAL IVP PRN (21:32)
[2023-09-19] MEDS: MORPHINE SULFATE 4 MG/ML SYRINGE IV PRN (00:23)
--- NOTE | 2023-09-19 09:40 | US ---
EXAMINATION TYPE: US liver DATE OF EXAM: 09/19/2023 COMPARISON: NONE CLINICAL INDICATION: Male, 73 years old with history of Elevated bilirubin level; Abnormal labs TECHNIQUE: Multiple sonographic images of the right upper quadrant are obtained. FINDINGS: EXAM MEASUREMENTS: Liver Length: 26.1 cm Gallbladder Wall: 0.3 cm CBD: 0.4 cm Right Kidney: 12.3 x 5.5 x 7.0 cm [employer] E[employer]IA NOTES: Large pt body habitus Pancreas: Obscured by bowel gas Liver: Enlarged Gallbladder: wnl Evidence for sonographic Regalado's sign: No CBD: wnl Right Kidney: wnl IMPRESSION: 1. Hepatomegaly correlate for underlying hepatocellular disease.
[2023-09-19 10:26] LABS: HCT 31.4 % (39.6-50.0); HGB 10.3 g/dL (13.0-17.0); MCH 33.1 pg (27.0-32.0); MCHC 32.8 g/dL (32.0-37.0); Mean Platelet Volume 9.8 FL (9.5-12.2); NRBC Per 100 WBC 0 X 10*3/uL (0.00-0.01); Platelet Count 158 X 10*3/uL (140-440); RBC 3.11 X 10*6/uL (4.40-5.60); RDW 14.7 % (11.5-14.5); WBC 13.42 X 10*3/uL (4.50-10.00)
[2023-09-19 10:48] LABS: ALT 58 U/L (10-49); AST 117 U/L (14-35); Albumin 2.5 g/dL (3.8-4.9); Albumin/Globulin Ratio 1.09 Ratio (1.60-3.17); Alkaline Phosphatase 69 U/L (41-126); BUN/Creat Ratio 16.83 Ratio (12.00-20.00); Blood Urea Nitrogen 30.3 mg/dL (9.0-27.0); Calcium 7.8 mg/dL (8.7-10.3); Carbon Dioxide 20.9 mmol/L (21.6-31.8); Chloride 108 mmol/L (96-109); Globulin 2.3 g/dL (1.6-3.3); Glucose 181 mg/dL (70-110); Potassium 3.3 mmol/L (3.5-5.5); Sodium 142 mmol/L (135-145); Total Bilirubin 1.1 mg/dL (0.3-1.2); Total Protein 4.8 g/dL (6.2-8.2)
[2023-09-19 11:20] LABS: Basophils # (A) 0.03 X 10*3/uL (0.00-0.10); Basophils % (A) 0.2 %; Eosinophils # (A) 0 X 10*3/uL (0.04-0.35); Eosinophils % (A) 0 %; Monocytes % (A) 4.5 %; Neutrophils # (A) 12.29 X 10*3/uL (1.80-7.70); Neutrophils % (A) 91.6 %; RBC Morphology Normal (Normal)
[2023-09-19 11:42] VITALS: BMI 44.7
--- NOTE | 2023-09-19 12:11 | P.CRDCN ---
History of Present Illness Consult date: 09/19/23 Reason for Consult (text): Elevated troponin History of present illness: This is a 73-year-old male patient of Dr. Sharma with past medical history of hypertension, hyperlipidemia, diabetes mellitus type 2, obesity, depression, chronic lower extremity edema, chronic diastolic heart failure. We have been asked to evaluate the patient for elevated troponin. Patient presented to the hospital on 09/16 with nausea vomiting diarrhea and has been subsequently diagnosed with sepsis secondary to bilateral lower extremity cellulitis, possible gastroenteritis. Patient had 1 troponin drawn initially that was mildly elevated. Patient denies having any chest pain. EKG: Sinus rhythm with right bundle branch block and left fascicular block Chest x-ray: Patchy density right medial lung base may reflect developing pneumonia. Venous duplex right lower extremity negative for DVT. Liver ultrasound reveals hepatomegaly correlate for underlying hepatocellular disease. Laboratory studies: WBC initially 16.7 and repeat 13.4, hemoglobin 10.3. Sodium 142, potassium 3.3, BUN 30 creatinine 1.8. AST 117, ALT 58. Urinalysis blood large. Troponin 0.052. proBNP 1420. Home cardiac medications: Aspirin 81 mg daily, atorvastatin 40 mg at bedtime, L asix 40 mg twice daily, Lopressor 50 mg twice daily. Review Of Systems: At the time of my exam: CONSTITUTIONAL: Denies fever or chills. HEENT: Denies blurred vision, vision changes, or eye pain. Denies hemoptysis CARDIOVASCULAR: Denies chest pain. Denies orthopnea. Denies PND. Denies palpitations RESPIRATORY: Denies shortness of breath. GASTROINTESTINAL: Denies abdominal pain. Denies nausea or vomiting. HEMATOLOGIC: Denies bleeding disorders. GENITOURINARY: Denies any blood in urine. SKIN: Denies puritis. Denies rash. Physical examination: Gen: This is a morbidly obese 73-year-old male resting in bed in no acute distress VS: reviewed, blood pressure 86/46-108/59, heart rate 66, pulse ox 99% on 3 L nasal cannula. HEENT: Head is atraumatic, normocephalic. Pupils equal, round. Sclerae is anicteric. NECK: Supple. No JVD. LUNGS: Diminished breath sounds. No intercostal retractions. HEART: Regular rate and rhythm. No murmur. ABDOMEN: Soft No tenderness. EXTREMITIES: Bilateral lower extremity edema and erythema NEUROLOGICAL: Patient is awake, alert and oriented x3. Assessment: Acute kidney injury Sepsis secondary to bilateral lower extremity cellulitis Possible gastroenteritis Borderline troponin in the setting of infection and sepsis unclear relevance Hypertension Hyperlipidemia Diabetes mellitus type 2 Morbid obesity with BMI of 44 Chronic lower extremity edema Chronic diastolic heart failure Plan: Resume patient's home cardiac medications Obtain 2-D echocardiogram and Doppler study to assess cardiac structure and function Further recommendations to follow based upon clinical course Thank you kindly for this consultation. Nurse practitioner note has been reviewed, I agree with documented findings and plan of care. Patient was seen and examined. Past Medical History Past Medical History: Atrial Fibrillation, Hyperlipidemia, Hypertension Additional Past Medical History / Comment(s): chronic back pain, four buldging discs to back History of Any Multi-Drug Resistant Organisms: None Reported Past Surgical History: Heart Catheterization, Orthopedic Surgery Additional Past Surgical History / Comment(s): right knee sx Smoking Status: Never smoker Medications and Allergies Home Medications Medication Instructions Recorded Confirmed Type Atorvastatin [Lipitor] 40 mg PO HS 05/20/19 09/17/23 History Metoprolol Tartrate [Lopressor] 50 mg PO BID 05/20/19 09/17/23 History tiZANidine [Zanaflex] 4 mg PO BID@0900,1200 05/20/19 09/17/23 History tiZANidine [Zanaflex] 8 mg PO HS 05/20/19 09/17/23 History Acetaminophen [Tylenol Extra 1,000 mg PO TID 09/17/23 09/17/23 History Strength] Aspirin EC [Ecotrin Low Dose] 81 mg PO DAILY 09/17/23 09/17/23 History Furosemide [Lasix] 40 mg PO BID 09/17/23 09/17/23 History HYDROcodone/APAP 5-325MG [Tenino 1 tab PO BID 09/17/23 09/17/23 History 5-325] Allergies Allergy/AdvReac Type Severity Reaction Status Date / Time No Known Allergies Allergy Verified 09/17/23 17:34 Physical Exam Vitals: Vital Signs Temp Pulse Resp BP BP BP Pulse Ox 09/19/23 08:00 98.6 F 66 20 86/46 99 09/19/23 00:36 98.9 F 79 16 108/59 94 L 09/18/23 18:58 100.8 F H 88 20 100/59 95 09/18/23 13:15 81 113/60 09/18/23 12:38 99.3 F 66 19 87/47 90 L Intake and Output 09/18/23 09/19/23 09/19/23 22:59 06:59 14:59 Other: # Voids 2 1 # Bowel Movements 3 1 Results 09/19/23 07:21 09/19/23 07:21 Cardiac Enzymes 09/18/23 Range/Units 03:36 AST 64 H (14-35) U/L CBC 09/18/23 Range/Units 03:36 WBC 13.02 H (4.50-10.00) X 10*3/uL RBC 3.23 L (4.40-5.60) X 10*6/uL Hgb 10.7 L (13.0-17.0) g/dL Hct 32.1 L (39.6-50.0) % Plt Count 177 (140-440) X 10*3/uL Comprehensive Metabolic Panel 09/18/23 Range/Units 03:36 Sodium 138 (135-145) mmol/L Potassium 3.0 L (3.5-5.5) mmol/L Chloride 103 (96-109) mmol/L Carbon Dioxide 23.0 (21.6-31.8) mmol/L BUN 22.0 (9.0-27.0) mg/dL Creatinine 1.5 (0.6-1.5) mg/dL Glucose 137 H (70-110) mg/dL Calcium 7.8 L (8.7-10.3) mg/dL AST 64 H (14-35) U/L ALT 28 (10-49) U/L Alkaline Phosphatase 53 (41-126) U/L Total Protein 5.1 L (6.2-8.2) g/dL Albumin 2.8 L (3.8-4.9) g/dL Current Medications Generic Name Dose Route Start Last Admin Trade Name Freq PRN Reason Stop Dose Admin Acetaminophen 650 mg 09/17/23 23:18 09/18/23 22:38 Acetaminophen Tab 325 Mg Tab PO 650 mg Q6HR PRN Administration Fever and/ or Pain Hydrocodone Bitart/Acetaminophen 1 each 09/17/23 21:58 09/18/23 12:15 Hydrocodone/Apap 5-325mg 1 Each Tab PO 1 each BID PRN Administration Pain Atorvastatin Calcium 40 mg 09/17/23 22:15 09/18/23 23:04 Atorvastatin 40 Mg Tab PO Not Given HS SOO Enoxaparin Sodium 40 mg 09/18/23 14:30 09/19/23 08:17 Enoxaparin 40 Mg/0.4 Ml Syringe SQ 40 mg DAILY SOO Administration Furosemide 40 mg 09/17/23 22:15 09/18/23 16:18 Furosemide 40 Mg Tab PO 40 mg BID@0900,1600 SOO Administration Cefazolin Sodium 3 gm/ Sodium 100 mls @ 200 mls/hr 09/18/23 16:00 09/19/23 08:17 Chloride IVPB 200 mls/hr Q8HR SOO Administration Protocol Metoprolol Tartrate 50 mg 09/17/23 22:15 09/18/23 22:35 Metoprolol Tartrate 50 Mg Tab PO Not Given BID [facility] Miscellaneous Information 1 each 09/18/23 13:57 Potassium Replacement Protocol 1 Each Misc MISCELLANE DAILY PRN Per Protocol Protocol Morphine Sulfate 4 mg 09/17/23 18:01 09/19/23 00:23 Morphine Sulfate 4 Mg/Ml Syringe IV 4 mg Q4HR PRN Administration Severe Pain (Scale 7 to 10) Naloxone HCl 0.2 mg 09/17/23 18:01 Naloxone 0.4 Mg/Ml 1 Ml Vial IV Q2M PRN Opioid Reversal Ondansetron HCl 4 mg 09/17/23 18:01 09/18/23 21:32 Ondansetron 4 Mg/2 Ml Vial IVP 4 mg Q8HR PRN Administration Nausea And Vomiting Pantoprazole Sodium 40 mg 09/18/23 09:00 09/19/23 08:17 Pantoprazole 40 Mg/10 Ml Vial IV 40 mg DAILY SOO Administration Potassium Chloride 20 meq 09/18/23 13:56 09/19/23 08:18 Potassium Chloride Er 20 Meq Tab.Er PO 09/19/23 09:01 20 meq BID SOO Administration Tizanidine HCl 8 mg 09/17/23 22:30 09/18/23 23:56 Tizanidine 4 Mg Tab PO 8 mg HS SOO Administration Intake and Output 09/18/23 09/19/23 09/19/23 22:59 06:59 14:59 Other: # Voids 2 1 # Bowel Movements 3 1 09/18/23 03:36 09/18/23 03:36
[2023-09-19] MEDS ORDERED: Potassium Replacement Protocol 1 EACH MISC MISCELLANE PRN (19:20)
[2023-09-19] MEDS: POTASSIUM CHLORIDE ER 20 MEQ TAB.ER PO SCH (20:37)
[2023-09-20] MEDS: ALBUTEROL NEBULIZED 2.5 MG/3 ML INHALATION PRN (00:17)
[2023-09-20 07:10] LABS: African American GFR (CKD) 61 (>60 ml/min/1.73 sqM); Anion Gap 5 mmol/L; Blood Urea Nitrogen 30 mg/dL (9-20); Calcium 8.3 mg/dL (8.4-10.2); Carbon Dioxide 26 mmol/L (22-30); Chloride 110 mmol/L (98-107); Glucose 132 mg/dL (74-99); Non-African American GFR(CKD) 53 (>60 ml/min/1.73 sqM); Potassium 3.2 mmol/L (3.5-5.1); Sodium 141 mmol/L (137-145)
[2023-09-20 07:25] LABS: Basophils % (A) 0 %; Eosinophils % (A) 0 %; HCT 35.6 % (39.0-53.0); HGB 11.9 gm/dL (13.0-17.5); Lymphocytes # (A) 0.6 k/uL (1.0-4.8); Lymphocytes % (A) 4 %; MCH 33.9 pg (25.0-35.0); MCHC 33.5 g/dL (31.0-37.0); MCV 101.3 fL (80.0-100.0); Macrocytosis Slight; Mean Platelet Volume 7.7; Monocytes # (A) 0.7 k/uL (0-1.0); Monocytes % (A) 5 %; Neutrophils # (A) 13.3 k/uL (1.3-7.7); Neutrophils % (A) 90 %; Platelet Count 207 k/uL (150-450); Poikilocytosis Slight; RBC 3.51 m/uL (4.30-5.90); WBC 14.9 k/uL (3.8-10.6)
--- NOTE | 2023-09-20 07:37 | CA ---
Transthoracic Echo Report Name: Rory Vaughn Age: 73 Gender: M : 1950 Exam Date: 09/19/2023 11:31 Exam Location: [place] [facility] Ht (in): 72 Wt (lb): 330 Ordering Physician: Iker Clinton MD Attending/Referring Phys: Glass Lathe Operator Vani Dobbs RDCS Procedure CPT: Indications: elevated troponin Cardiac Hx: Technical Quality: Technically difficult study Contrast 1: Definity Total Dose (mL): 2 Contrast 2: Total Dose (mL): MEASUREMENTS (Male / Female) Normal Values 2D ECHO LV Diastolic Diameter PLAX 6.3 cm 4.2 - 5.9 / 3.9 - 5.3 cm LV Systolic Diameter PLAX 4.1 cm IVS Diastolic Thickness 1.3 cm 0.6 - 1.0 / 0.6 - 0.9 cm LVPW Diastolic Thickness 1.2 cm 0.6 - 1.0 / 0.6 - 0.9 cm LV Relative Wall Thickness 0.4 RV Internal Dim ED PLAX 3.5 cm M-MODE Aortic Root Diameter MM 3.6 cm DOPPLER AV Peak Velocity 168.3 cm/s AV Peak Gradient 11.3 mmHg Mitral E Point Velocity 92.9 cm/s Mitral A Point Velocity 77.9 cm/s Mitral E to A Ratio 1.2 MV Deceleration Time 280.4 ms MV E' Velocity 7.2 cm/s Mitral E to MV E' Ratio 12.9 TR Peak Velocity 285.0 cm/s TR Peak Gradient 32.5 mmHg Right Ventricular Systolic Press 47.5 mmHg FINDINGS Left Ventricle Left ventricular ejection fraction is estimated at 45-50 %. Mildly increased septal wall thickness. Mildly increased left ventricular diastolic diameter. Mild concentric left ventricular hypertrophy. No obvious regional wall motion abnormalities. Right Ventricle Mild right ventricular dilatation. Moderate pulmonary hypertension. Right Atrium Right atrium not well visualized. Left Atrium Normal left atrial size. Mitral Valve Mitral valve not well visualized. Mild mitral regurgitation. Aortic Valve Aortic valve not well visualized. No aortic valve stenosis or regurgitation. Tricuspid Valve Tricuspid valve not well visualized. Mild tricuspid regurgitation. Pulmonic Valve Pulmonic valve not well visualized. No pulmonic regurgitation. Pericardium No pericardial or pleural effusion. Aorta Normal size aortic root and proximal ascending aorta. CONCLUSIONS LVH with mildly reduced LV systolic function RV enlargement Previewed by: Dr. Rudolph Suh MD (Electronically Signed) Final Date: 20 September 2023 07:36
[2023-09-20] MEDS: ASPIRIN 81 MG PO SCH (08:46)
[2023-09-20] MEDS: POTASSIUM CHLORIDE ER 20 MEQ TAB.ER PO SCH ×2 (08:46→12:06)
[2023-09-20] MEDS: IOPAMIDOL CONTRAST (ORAL USE) VIAL PO PRN (10:57)
--- NOTE | 2023-09-20 13:14 | CT ---
EXAMINATION TYPE: CT abdomen pelvis wo con CT DLP: 2342.2 mGycm, Automated exposure control for dose reduction was used. DATE OF EXAM: 09/20/2023 12:58 PM COMPARISON: Liver ultrasound 09/19/2023 CLINICAL INDICATION:Male, 73 years old with history of abd distension, leukocytosis; abd distension, leukocytosis TECHNIQUE: Standard CT of the abdomen and pelvis following the administration of oral contrast. Cor onal and sagittal reformats were performed. FINDINGS: LOWER CHEST: Trace left and small right pleural effusion. Partial right lower lobe atelectasis. Multi ple calcified mediastinal and bilateral hilar lymph nodes. Cardiomegaly. Coronary artery calcificatio ns. No pericardial effusion. Elevation of the right hemidiaphragm. ABDOMEN LIVER: Enlarged measuring 26.4 cm in CC dimension. GALLBLADDER AND BILE DUCTS: Cholelithiasis. No biliary duct dilatation. PANCREAS: Unremarkable. SPLEEN: Unremarkable. ADRENAL GLANDS: Unremarkable noncontrast appearance of the right adrenal gland. Punctate calcificatio n within the left adrenal gland. KIDNEYS AND URETERS: No evidence of hydronephrosis or renal calculus. The ureters are unremarkable. PELVIS BLADDER: Unremarkable REPRODUCTIVE: Enlarged prostate gland measuring 5.4 cm with central calcification. ABDOMEN & PELVIS STOMACH AND BOWEL: Dilated gas and contrast-filled stomach. There is contrast identified within the p roximal and mid small bowel. There is suggested eccentric wall thickening of 1.5 cm involving the pro ximal duodenum (series 201, image 48).No evidence for bowel obstruction. Descending colon diverticulo sis without evidence for acute diverticulitis. No pneumatosis. The appendix is not identified. PERITONEUM: No evidence of pneumoperitoneum or free fluid. VASCULATURE: Mild atherosclerotic calcifications are present throughout the abdominal aorta and its b ranches. No evidence of aortic aneurysm. MUSCULOSKELETAL: No acute osseous abnormalities. Osteoarthritic changes of the right hip. Multilevel degenerative disc disease of the visualized thoracolumbar spine. LYMPH NODES: No gross evidence for lymphadenopathy. SOFT TISSUE/ABDOMINAL WALL: Tiny fat filled umbilical hernia. Small fat filled left inguinal hernia. A few foci of gas within the soft tissues of the left abdomen likely from medication injection. Diffu se anasarca. IMPRESSION: 1. Gastric distention with contrast passage into the proximal and mid small bowel. There is suggeste d eccentric wall thickening of the proximal duodenum. Underlying mass is not excluded. Direct visuali zation is recommended. Correlate for gastroparesis. 2. No CT evidence for complete bowel obstruction. 3. Hepatomegaly. 4. Colonic diverticulosis without evidence for acute diverticulitis. 5. Cholelithiasis. 6. Trace left and small right pleural effusions with partial atelectasis of the right lower lobe. 7. Sequela of prior granulomatous disease.
[2023-09-20] MEDS: AMPICILLIN-SULBACTAM 3 GM in SODIUM CHLORIDE 0.9% 100 ML IVPB SCH (17:43)
[2023-09-20] MEDS: IPRATROPIUM-ALBUTEROL 3 ML NEB INHALATION SCH (20:30)
[2023-09-21 10:34] LABS: BUN/Creat Ratio 17.64 Ratio (12.00-20.00); Blood Urea Nitrogen 24.7 mg/dL (9.0-27.0); Calcium 8.2 mg/dL (8.7-10.3); Chloride 105 mmol/L (96-109); Glucose 102 mg/dL (70-110); Potassium 3.7 mmol/L (3.5-5.5); Sodium 143 mmol/L (135-145)
[2023-09-21 11:14] LABS: Basophils # (A) 0.05 X 10*3/uL (0.00-0.10); Basophils % (A) 0.3 %; Eosinophils # (A) 0.06 X 10*3/uL (0.04-0.35); Eosinophils % (A) 0.3 %; HCT 36.4 % (39.6-50.0); HGB 11.7 g/dL (13.0-17.0); Lymphocytes # (A) 1.05 X 10*3/uL (0.90-5.00); Lymphocytes % (A) 5.5 %; MCH 33.2 pg (27.0-32.0); MCHC 32.1 g/dL (32.0-37.0); MCV 103.4 FL (80.0-97.0); Mean Platelet Volume 9.4 FL (9.5-12.2); Monocytes # (A) 0.88 X 10*3/uL (0.20-1.00); Monocytes % (A) 4.6 %; NRBC Per 100 WBC 0 X 10*3/uL (0.00-0.01); Neutrophils # (A) 16.87 X 10*3/uL (1.80-7.70); Platelet Count 247 X 10*3/uL (140-440); RBC 3.52 X 10*6/uL (4.40-5.60); RBC Morphology Normal (Normal); RDW 15.1 % (11.5-14.5); WBC 19.15 X 10*3/uL (4.50-10.00)
[2023-09-21] MEDS ORDERED: VANCOMYCIN IV PER PHARMACY 1 EACH MISC MISCELLANE PRN (21:25)
[2023-09-21] MEDS: VANCOMYCIN 2,250 MG in SODIUM CHLORIDE 0.9% 500 ML 500 ML IVPB ONE (22:12)
[2023-09-21] MEDS: PANTOPRAZOLE 40 MG/10 ML VIAL IV SCH (22:12)
[2023-09-21] MEDS: METOCLOPRAMIDE 5 MG/ML 2 ML VIAL IVP PRN (22:23)
[2023-09-22] MEDS: ONDANSETRON 4 MG/2 ML VIAL IVP PRN (01:17)
[2023-09-22] MEDS: VANCOMYCIN 2,250 MG in SODIUM CHLORIDE 0.9% 500 ML 500 ML IVPB SCH ×2 (14:27→23:36)
--- NOTE | 2023-09-22 16:06 | P.PN ---
Subjective Progress Note Date: 09/19/23 Principal diagnosis: Reason for follow-up is right lower extremity wound and cellulitis Patient is a 73-year-old male with a past medical history significant for hypertension hyperlipidemia atrial fibrillation chronic back pain patient presented to hospital with increasing swelling redness to the right leg with some blister formation along with nausea vomiting ID consulted concerning for the right lower extremity cellulitis. On today's evaluation that is 09/19/2023, Patient did have resolution of his fever and is afebrile this morning patient is currently on 3 L nasal cannula oxygen complains of some shortness of breath no chest pain no cough no abdominal pain to complain of some nausea and vomiting denies any worsening pain to the right lower extremity. Patient white count is slightly up to 13.42, creatinine is 1.8 Objective - Vital Signs Vital signs: Vital Signs Temp 98.6 F 09/19/23 08:00 Pulse 66 09/19/23 08:00 Resp 20 09/19/23 08:00 BP 86/46 09/19/23 08:00 Pulse Ox 96 09/19/23 08:37 FiO2 Intake & Output 09/18/23 09/19/23 09/19/23 18:59 06:59 18:59 Weight 149.685 kg Other: # Voids 2 1 # Bowel Movements 1 - Exam GENERAL DESCRIPTION: An elderly male lying in bed in no distress RESPIRATORY SYSTEM: Unlabored breathing , decreased breath sounds at bases HEART: S1 S2 regular rate and rhythm , ABDOMEN: Soft , no tenderness EXTREMITIES: Right lower extremity superficial ulceration erythema no drainage and swelling Exam completed with help of [employer] M[employer]ER - Labs CBC & Chem 7: 09/21/23 07:04 09/21/23 07:04 Labs: Abnormal Lab Results - Last 24 Hours (Table) 09/19/23 09/19/23 Range/Units 07:21 07:21 WBC 13.42 H (4.50-10.00) X 10*3/uL RBC 3.11 L (4.40-5.60) X 10*6/uL Hgb 10.3 L (13.0-17.0) g/dL Hct 31.4 L (39.6-50.0) % MCV 101.0 H (80.0-97.0) FL MCH 33.1 H (27.0-32.0) pg RDW 14.7 H (11.5-14.5) % Immature Gran # 0.10 H (0.00-0.04) X 10*3/uL Neutrophils # 12.29 H (1.80-7.70) X 10*3/uL Lymphocytes # 0.40 L (0.90-5.00) X 10*3/uL Eosinophils # 0 L (0.04-0.35) X 10*3/uL Potassium 3.3 L (3.5-5.5) mmol/L Carbon Dioxide 20.9 L (21.6-31.8) mmol/L Anion Gap 13.10 H (4.00-12.00) mmol/L BUN 30.3 H (9.0-27.0) mg/dL Creatinine 1.8 H (0.6-1.5) mg/dL Est GFR (CKD-EPI) 39 L (>=60) Glucose 181 H (70-110) mg/dL Calcium 7.8 L (8.7-10.3) mg/dL AST 117 H (14-35) U/L ALT 58 H (10-49) U/L Total Protein 4.8 L (6.2-8.2) g/dL Albumin 2.5 L (3.8-4.9) g/dL Albumin/Globulin Ratio 1.09 L (1.60-3.17) Ratio Microbiology - Last 24 Hours (Table) 09/17/23 18:05 Blood Culture - Preliminary Blood 09/17/23 17:50 Blood Culture - Preliminary Blood Assessment and Plan (1) Sepsis Current Visit: Yes Status: Acute Code(s): A41.9 - SEPSIS, UNSPECIFIED ORGANISM SNOMED Code(s): 19501810 (2) Leg wound, right Current Visit: Yes Status: Acute Code(s): S81.801A - UNSPECIFIED OPEN WOUND, RIGHT LOWER LEG, INITIAL ENCOUNTER SNOMED Code(s): 83894128464381459 (3) Cellulitis of right leg Current Visit: Yes Status: Acute Code(s): L03.115 - CELLULITIS OF RIGHT LOWER LIMB SNOMED Code(s): 76814638397433517 Plan: This is a telehealth visit 1patient presented to hospital with sepsis in this patient who did have a diffuse swelling redness to bilateral extremity some superficial ulceration probably blister in this patient noted evidence of fluid overload likely representing a streptococcal cellulitis, clinically not behaving as MRSA or gram-negative infection. 2patient to continue with Aquacel silver dressing to the open wound followed by Kennedy wrap from just above the toe to below the knee change daily. 3patient to continue with cefazolin 3 g every 8 hours. Dictation was produced using [employer] dictation software. please excuse any grammatical, word or spelling errors. Time with Patient: Less than 30
--- NOTE | 2023-09-22 16:07 | P.PN ---
Subjective Progress Note Date: 09/20/23 Principal diagnosis: Reason for follow-up is right lower extremity wound and cellulitis Patient is a 73-year-old male with a past medical history significant for hypertension hyperlipidemia atrial fibrillation chronic back pain patient presented to hospital with increasing swelling redness to the right leg with some blister formation along with nausea vomiting ID consulted concerning for the right lower extremity cellulitis. On today's evaluation that is 09/20/2023, patient has been afebrile, patient is breathing comfortably and is currently on 2 L current oxygen, patient denies having any significant cough no chest pain shortness of breath, patient is complaining of some nausea vomiting as well as diarrhea denies any worsening pain to the right lower extremity. Patient white count is 14.9 creatinine is 1.33 Objective - Vital Signs Vital signs: Vital Signs Temp 98.3 F 09/20/23 07:56 Pulse 79 09/20/23 07:56 Resp 18 09/20/23 07:56 BP 145/64 09/20/23 07:56 Pulse Ox 95 09/20/23 07:56 FiO2 Intake & Output 09/19/23 09/20/23 09/20/23 18:59 06:59 18:59 Weight 149.685 kg Other: Voiding Method Diaper Diaper Incontinent # Voids 3 1 - Exam GENERAL DESCRIPTION: An elderly male lying in bed in no distress RESPIRATORY SYSTEM: Unlabored breathing , decreased breath sounds at bases HEART: S1 S2 regular rate and rhythm , ABDOMEN: Soft , no tenderness EXTREMITIES: Right lower extremity wound is currently dressed Exam completed with help of [employer] - Labs CBC & Chem 7: 09/21/23 07:04 09/21/23 07:04 Labs: Abnormal Lab Results - Last 24 Hours (Table) 09/19/23 09/19/23 09/20/23 Range/Units 07:21 07:21 06:27 WBC 13.42 H (4.50-10.00) X 10*3/uL RBC 3.11 L (4.40-5.60) X 10*6/uL Hgb 10.3 L (13.0-17.0) g/dL Hct 31.4 L (39.6-50.0) % MCV 101.0 H (80.0-97.0) FL MCH 33.1 H (27.0-32.0) pg RDW 14.7 H (11.5-14.5) % Immature Gran # 0.10 H (0.00-0.04) X 10*3/uL Neutrophils # 12.29 H (1.80-7.70) X 10*3/uL Lymphocytes # 0.40 L (0.90-5.00) X 10*3/uL Eosinophils # 0 L (0.04-0.35) X 10*3/uL Potassium 3.3 L 3.2 L (3.5-5.5) mmol/L Chloride 110 H (98-107) mmol/L Carbon Dioxide 20.9 L (21.6-31.8) mmol/L Anion Gap 13.10 H (4.00-12.00) mmol/L BUN 30.3 H 30 H (9.0-27.0) mg/dL Creatinine 1.8 H 1.33 H (0.6-1.5) mg/dL Est GFR (CKD-EPI) 39 L (>=60) Glucose 181 H 132 H (70-110) mg/dL Calcium 7.8 L 8.3 L (8.7-10.3) mg/dL AST 117 H (14-35) U/L ALT 58 H (10-49) U/L Total Protein 4.8 L (6.2-8.2) g/dL Albumin 2.5 L (3.8-4.9) g/dL Albumin/Globulin Ratio 1.09 L (1.60-3.17) Ratio // Range/Units 06:27 WBC 14.9 H (4.50-10.00) X 10*3/uL RBC 3.51 L (4.40-5.60) X 10*6/uL Hgb 11.9 L (13.0-17.0) g/dL Hct 35.6 L (39.6-50.0) % MCV 101.3 H (80.0-97.0) FL MCH (27.0-32.0) pg RDW (11.5-14.5) % Immature Gran # (0.00-0.04) X 10*3/uL Neutrophils # 13.3 H (1.80-7.70) X 10*3/uL Lymphocytes # 0.6 L (0.90-5.00) X 10*3/uL Eosinophils # (0.04-0.35) X 10*3/uL Potassium (3.5-5.5) mmol/L Chloride (98-107) mmol/L Carbon Dioxide (21.6-31.8) mmol/L Anion Gap (4.00-12.00) mmol/L BUN (9.0-27.0) mg/dL Creatinine (0.6-1.5) mg/dL Est GFR (CKD-EPI) (>=60) Glucose (70-110) mg/dL Calcium (8.7-10.3) mg/dL AST (14-35) U/L ALT (10-49) U/L Total Protein (6.2-8.2) g/dL Albumin (3.8-4.9) g/dL Albumin/Globulin Ratio (1.60-3.17) Ratio Microbiology - Last 24 Hours (Table) 09/17/23 18:05 Blood Culture - Preliminary Blood 09/17/23 17:50 Blood Culture - Preliminary Blood Assessment and Plan (1) Sepsis Current Visit: Yes Status: Acute Code(s): A41.9 - SEPSIS, UNSPECIFIED ORGANISM SNOMED Code(s): 49555508 (2) Leg wound, right Current Visit: Yes Status: Acute Code(s): S81.801A - UNSPECIFIED OPEN WOUND, RIGHT LOWER LEG, INITIAL ENCOUNTER SNOMED Code(s): 17078005289535162 (3) Cellulitis of right leg Current Visit: Yes Status: Acute Code(s): L03.115 - CELLULITIS OF RIGHT LOWER LIMB SNOMED Code(s): 85422680457484463 Plan: This is a telehealth visit 1patient presented to hospital with sepsis in this patient who did have a diffuse swelling redness to bilateral extremity some superficial ulceration probably blister in this patient noted evidence of fluid overload likely representing a streptococcal cellulitis, clinically not behaving as MRSA or gram-negative infection. 2patient to continue with Aquacel silver dressing to the open wound followed by Kennedy wrap from just above the toe to below the knee change daily. 3patient did have worsening of the white count and the patient also have si gnificant GI symptoms so we will go ahead and check stool studies CT abdominal pelvis and switch antibiotics to Unasyn Dictation was produced using [employer] software. please excuse any gramma tical, word or spelling errors.
--- NOTE | 2023-09-22 16:09 | P.PN ---
Subjective Progress Note Date: 09/21/23 Principal diagnosis: Reason for follow-up is right lower extremity wound and cellulitis Patient is a 73-year-old male with a past medical history significant for hypertension hyperlipidemia atrial fibrillation chronic back pain patient presented to hospital with increasing swelling redness to the right leg with some blister formation along with nausea vomiting ID consulted concerning for the right lower extremity cellulitis. On today's evaluation that is 09/21/2023, Patient is afebrile this morning and denies any chills, patient mention breathing comfortably and is currently on 2 L nasal cannula oxygen, patient denies any chest pain occasional cough patient den ies any abdominal pain vomiting and diarrhea has resolved and denies any worsening pain to the right lower extremity. Patient white count is up to 19.15 creatinine is 1.4 Objective - Vital Signs Vital signs: Vital Signs Temp 97.8 F 09/21/23 19:06 Pulse 84 09/21/23 21:09 Resp 15 09/21/23 19:06 BP 116/69 09/21/23 19:06 Pulse Ox 95 09/21/23 19:06 FiO2 Intake & Output 09/21/23 09/21/23 09/22/23 06:59 18:59 06:59 Output Total 850 800 Balance -850 -800 Output: Urine 850 800 Other: Voiding Method Diaper Diaper External Catheter External Catheter - Exam GENERAL DESCRIPTION: An elderly male lying in bed in no distress RESPIRATORY SYSTEM: Unlabored breathing , decreased breath sounds at bases HEART: S1 S2 regular rate and rhythm , ABDOMEN: Soft , no tenderness EXTREMITIES: Right lower extremity wound is currently dressed Exam completed with help of CONSULTANT TEACHER - Labs CBC & Chem 7: 09/21/23 07:04 09/21/23 07:04 Labs: Abnormal Lab Results - Last 24 Hours (Table) 09/21/23 09/21/23 Range/Units 07:04 07:04 WBC 19.15 H (4.50-10.00) X 10*3/uL RBC 3.52 L (4.40-5.60) X 10*6/uL Hgb 11.7 L (13.0-17.0) g/dL Hct 36.4 L (39.6-50.0) % MCV 103.4 H (80.0-97.0) FL MCH 33.2 H (27.0-32.0) pg RDW 15.1 H (11.5-14.5) % MPV 9.4 L (9.5-12.2) FL Immature Gran # 0.24 H (0.00-0.04) X 10*3/uL Neutrophils # 16.87 H (1.80-7.70) X 10*3/uL Anion Gap 14.00 H (4.00-12.00) mmol/L Est GFR (CKD-EPI) 53 L (>=60) Calcium 8.2 L (8.7-10.3) mg/dL Microbiology - Last 24 Hours (Table) 09/17/23 18:05 Blood Culture - Preliminary Blood 09/17/23 17:50 Blood Culture - Preliminary Blood Assessment and Plan (1) Sepsis Current Visit: Yes Status: Acute Code(s): A41.9 - SEPSIS, UNSPECIFIED ORGANISM SNOMED Code(s): 54978255 (2) Leg wound, right Current Visit: Yes Status: Acute Code(s): S81.801A - UNSPECIFIED OPEN WOUND, RIGHT LOWER LEG, INITIAL ENCOUNTER SNOMED Code(s): 70178656637981394 (3) Cellulitis of right leg Current Visit: Yes Status: Acute Code(s): L03.115 - CELLULITIS OF RIGHT LOWER LIMB SNOMED Code(s): 04374952338050225 Plan: This is a telehealth visit 1patient presented to hospital with sepsis in this patient who did have a diffuse swelling redness to bilateral extremity some superficial ulceration probably blister in this patient noted evidence of fluid overload likely representing a streptococcal cellulitis, clinically not behaving as MRSA or gram-negative infection. 2patient to continue with Aquacel silver dressing to the open wound followed by Kennedy wrap from just above the toe to below the knee change daily. 3patient did have worsening of the white count and the patient also have significant GI symptoms, patient did have CT of abdominal pelvis some thickening of the duodenum, radiology recommended direct visualization GI should be consulted for EGD. 4keeping in mind worsening of the white count we will add vancomycin while watching his kidney function closely continue with Unasyn Dictation was produced using [employer] dictation software. please excuse any grammatical, word or spelling errors. Time with Patient: Less than 30
--- NOTE | 2023-09-22 16:11 | P.PN ---
Subjective Progress Note Date: 09/22/23 Principal diagnosis: Reason for follow-up is right lower extremity wound and cellulitis Patient is a 73-year-old male with a past medical history significant for hypertension hyperlipidemia atrial fibrillation chronic back pain patient presented to hospital with increasing swelling redness to the right leg with some blister formation along with nausea vomiting ID consulted concerning for the right lower extremity cellulitis. On today's evaluation that is 09/22/2023,the patient denies any fever or any chills, patient is breathing comfortably on 2 L nasal cannula oxygen the patient denies chest pain shortness of breath and no significant cough, patient has been complaining of some abdominal distention no further nausea vomiting and did not have any bowel movement for more than 24 hours mention passing some gas denies any worsening pain to the right lower extremity Patient apparently refused blood draw this morning Objective - Vital Signs Vital signs: Vital Signs Temp 98.0 F 09/22/23 14:46 Pulse 100 09/22/23 14:46 Resp 18 09/22/23 14:46 BP 133/75 09/22/23 14:46 Pulse Ox 92 L 09/22/23 14:46 FiO2 Intake & Output 09/21/23 09/22/23 09/22/23 18:59 06:59 18:59 Output Total 800 750 Balance -800 -750 Output: Urine 800 750 Other: Voiding Method Diaper External Catheter - Exam GENERAL DESCRIPTION: An elderly male lying in bed in no distress RESPIRATORY SYSTEM: Unlabored breathing , decreased breath sounds at bases HEART: S1 S2 regular rate and rhythm , ABDOMEN: Soft , no tenderness EXTREMITIES: Right lower extremity wound with no slough tissue surrounding redness has improved there is no drainage - Labs CBC & Chem 7: 09/21/23 07:04 09/21/23 07:04 Assessment and Plan (1) Sepsis Current Visit: Yes Status: Acute Code(s): A41.9 - SEPSIS, UNSPECIFIED ORGANISM SNOMED Code(s): 97561283 (2) Leg wound, right Current Visit: Yes Status: Acute Code(s): S81.801A - UNSPECIFIED OPEN WOUND, RIGHT LOWER LEG, INITIAL ENCOUNTER SNOMED Code(s): 64273807497532468 (3) Cellulitis of right leg Current Visit: Yes Status: Acute Code(s): L03.115 - CELLULITIS OF RIGHT LOWER LIMB SNOMED Code(s): 64555933767631008 Plan: 1patient presented to hospital with sepsis in this patient who did have a diffuse swelling redness to bilateral extremity some superficial ulceration probably blister in this patient noted evidence of fluid overload likely representing a streptococcal cellulitis, clinically not behaving as MRSA or gram-negative infection. 2patient to continue with Aquacel silver dressing to the open wound followed by Kennedy wrap from just above the toe to below the knee change daily. 3patient did have worsening of the white count and the patient also have significant GI symptoms, patient did have CT of abdominal pelvis some thickening of the duodenum, radiology recommended direct visualization GI should be consulted for EGD. 4patient did have improvement to the right lower extremity cellulitis clinically unfortunately he refuses lab draw today will try to obtain a CBC with a.m. lab as well as a BMP and continue with the vancomycin and Unasyn Dictation was produced using [employer] dictation software. please excuse any gramm atical, word or spelling errors. Time with Patient: Less than 30
[2023-09-22 20:32] LABS: Basophils # (A) 0.1 k/uL (0-0.2); Basophils % (A) 1 %; Eosinophils # (A) 0.2 k/uL (0-0.7); Eosinophils % (A) 1 %; HCT 39.9 % (39.0-53.0); HGB 13.3 gm/dL (13.0-17.5); Lymphocytes # (A) 0.8 k/uL (1.0-4.8); Lymphocytes % (A) 4 %; MCHC 33.4 g/dL (31.0-37.0); MCV 101.9 fL (80.0-100.0); Macrocytosis Slight; Mean Platelet Volume 9.1; Monocytes # (A) 1.4 k/uL (0-1.0); Monocytes % (A) 7 %; Neutrophils # (A) 16.4 k/uL (1.3-7.7); Neutrophils % (A) 85 %; Platelet Count 255 k/uL (150-450); RBC 3.91 m/uL (4.30-5.90); RDW 14.1 % (11.5-15.5); WBC 19.3 k/uL (3.8-10.6)
--- NOTE | 2023-09-22 22:56 | P.PN ---
Subjective Progress Note Date: 09/19/23 Patient is a 73-year-old male with a past medical history of atrial fibrillation not on anticoagulation, hypertension, hyperlipidemia, chronic back pain and morbid obesity with a BMI of 44.8 and also chronic bilateral lower extremity swelling presents to ER with complaints of worsening right lower extremity swelling and ruptured blister along with redness and increased pain. Patient has been having worsening swelling for the past 2 weeks. Patient is currently living by himself and his girlfriend is out of town for the past 2 weeks. Patient was unable to get out of bed and also felt very weak, cou ld not come to hospital.. Patient states that he had prior history of leg cellulitis 2 years ago. Patient was seen by his physician 4 days arthritis and was recommended right knee brace. Patient states that he has been having increased right leg swelling since then. On admission patient was febrile with Tmax 102 F and blood pressure 93/55 pulse 102 and respiration 94% on 3 L oxygen via nasal cannula. Patient take Lasix 40 mg twice daily at home. Laboratory data showed WBC 16.7 hemoglobin 14.6 and platelets 272 Sodium 137 potassium 2.9 chloride 101 bicarb is 26 BUN 21 and creatinine 1.25, total bilirubin 4.0 liver enzymes are not elevated. Troponin 0.052 and proBNP 1420. Right lower extremity duplex scan showed no evidence of DVT. EKG showed sinus tachycardia. 09/19/2023 Patient is lying in the bed. Awake alert and oriented. Right lower extremity is currently Kennedy wrapped. Swelling is improving. Patient has been afebrile. No nausea or vomiting. Patient has very minimal oral intake otherwise. Cultures have been negative. Patient is being continued on antibiotics at home cefazolin. ID is on board. Lab data showed WBC 13.4 hemoglobin 10.3 and platelets 158 sodium 142 potassium 3.3 chloride 108 bicarb is 28.9 BUN 20.3 and creatinine 1.8 and blood sugar 181 and calcium 7.8. Liver enzymes showed AST went up to 117 ALT 58 alk phos 69 albumin 2.5. Urinalysis showed 2+ protein trace glucose trace ketones and WBCs 3. Current medications reviewed. Objective - Vital Signs Vital signs: Vital Signs Temp 98.6 F 09/19/23 08:00 Pulse 66 09/19/23 08:00 Resp 20 09/19/23 08:00 BP 86/46 09/19/23 08:00 Pulse Ox 96 09/19/23 08:37 FiO2 Intake & Output 09/18/23 09/19/23 09/19/23 18:59 06:59 18:59 Other: # Voids 2 1 # Bowel Movements 1 - Exam PHYSICAL EXAMINATION: Patient is lying in the bed comfortably, no acute distress, awake alert and oriented. Morbidly obese. HEENT: Normocephalic. Neck is supple. Pupils reactive. Nostrils clear. Oral cavity is moist. Neck reveals no JVD, carotid bruits, or thyromegaly. CHEST EXAMINATION: Trachea is central. Symmetrical expansion. Bibasilar diminished sounds otherwise lung turner clear to auscultation and percussion. CARDIAC: Normal S1, S2 with no gallops. No murmurs ABDOMEN: Soft. Bowel sounds present. No organomegaly. No abdominal bruits. Extremities: Bilateral lower extremity 2+ edema and right lower extremity swelling and redness over the parsons and with ruptured blister and superficial ulceration.. No clubbing or cyanosis Neurologically awake, alert, oriented x3 with well-coordinated movements. No focal deficits noted Skin: No rash or skin lesions. Psychiatric: Coperative. Nonsuicidal Musculoskeletal: No joint swelling or deformity. Normal range of motion. - Labs CBC & Chem 7: 09/22/23 19:03 09/23/23 05:58 Labs: Abnormal Lab Results - Last 24 Hours (Table) 09/19/23 09/19/23 Range/Units 07:21 07:21 WBC 13.42 H (4.50-10.00) X 10*3/uL RBC 3.11 L (4.40-5.60) X 10*6/uL Hgb 10.3 L (13.0-17.0) g/dL Hct 31.4 L (39.6-50.0) % MCV 101.0 H (80.0-97.0) FL MCH 33.1 H (27.0-32.0) pg RDW 14.7 H (11.5-14.5) % Potassium 3.3 L (3.5-5.5) mmol/L Carbon Dioxide 20.9 L (21.6-31.8) mmol/L Anion Gap 13.10 H (4.00-12.00) mmol/L BUN 30.3 H (9.0-27.0) mg/dL Creatinine 1.8 H (0.6-1.5) mg/dL Est GFR (CKD-EPI) 39 L (>=60) Glucose 181 H (70-110) mg/dL Calcium 7.8 L (8.7-10.3) mg/dL AST 117 H (14-35) U/L ALT 58 H (10-49) U/L Total Protein 4.8 L (6.2-8.2) g/dL Albumin 2.5 L (3.8-4.9) g/dL Albumin/Globulin Ratio 1.09 L (1.60-3.17) Ratio Microbiology - Last 24 Hours (Table) 09/17/23 18:05 Blood Culture - Preliminary Blood 09/17/23 17:50 Blood Culture - Preliminary Blood Assessment and Plan Assessment: Right lower extremity cellulitis with ruptured blister and superficial ulcerati on Sepsis secondary to above Severe hypokalemia. Replaced. Chronic bilateral lower extremity swelling. Paroxysmal atrial fibrillation. Patient is currently in sinus rhythm. Not on anticoagulation. Elevated troponin level Elevated bilirubin level Hypertension Hyperlipidemia Chronic back pain Morbid obesity BMI 44.8 GI and DVT prophylaxis with PPI and Lovenox subcu. Plan: Patient will be continued on antibiotics cefazolin as per ID recommendations. Was given ceftriaxone and vancomycin in the ER. Follow-up wound cultures and blood cultures. IV fluids on hold. Continue Lasix and replace electrolytes/potassium. 2D echocardiogram was ordered due to elevated troponin level. Cardiology is on board. Continue with daily monitoring and follow-up closely. Prognosis is guarded. Time with Patient: Greater than 30
[2023-09-23] MEDS: HYDROcodone/APAP 5-325MG 1 EACH TAB PO PRN (00:06)
[2023-09-23] MEDS: AMOXIC-POT CLAV 875-125MG 1 EACH TAB PO SCH (00:06)
[2023-09-23 06:37] LABS: ALT 48 U/L (4-49); AST 115 U/L (17-59); African American GFR (CKD) 64 (>60 ml/min/1.73 sqM); Albumin 2.3 g/dL (3.5-5.0); Albumin/Globulin Ratio 0.8; Alkaline Phosphatase 138 U/L (38-126); Anion Gap 7 mmol/L; Blood Urea Nitrogen 30 mg/dL (9-20); Calcium 7.7 mg/dL (8.4-10.2); Carbon Dioxide 25 mmol/L (22-30); Chloride 104 mmol/L (98-107); Glucose 132 mg/dL (74-99); Non-African American GFR(CKD) 55 (>60 ml/min/1.73 sqM); Sodium 136 mmol/L (137-145); Total Bilirubin 2.4 mg/dL (0.2-1.3); Total Protein 5.3 g/dL (6.3-8.2)
[2023-09-23 07:02] LABS: C Reactive Protein 24.5 mg/dL (<1.0)
--- NOTE | 2023-09-23 07:32 | XR ---
EXAMINATION TYPE: XR chest 1V DATE OF EXAM: 09/23/2023 6:18 AM CLINICAL INDICATION:Male, 73 years old with history of Shortness of breath; COMPARISON: Chest radiographs from 09/18/2023 TECHNIQUE: XR chest 1V Frontal view of the chest. FINDINGS: Lungs/Pleura: There is no evidence of pleural effusion, focal consolidation, or pneumothorax. Pulmonary vascularity: Mild pulmonary vascular congestion. Heart/mediastinum: Cardiomediastinal silhouette is enlarged and stable. Musculoskeletal: No acute osseous pathology. IMPRESSION: Stable exam, Cardiomegaly and mild pulmonary vascular congestion. Correlate with BNP for congestive h eart failure.
--- NOTE | 2023-09-23 10:54 | P.PN ---
Subjective Progress Note Date: 09/20/23 Patient is a 73-year-old male with a past medical history of atrial fibrillation not on anticoagulation, hypertension, hyperlipidemia, chronic back pain and morbid obesity with a BMI of 44.8 and also chronic bilateral lower extremity swelling presents to ER with complaints of worsening right lower extremity swelling and ruptured blister along with redness and increased pain. Patient has been having worsening swelling for the past 2 weeks. Patient is currently living by himself and his girlfriend is out of town for the past 2 weeks. Patient was unable to get out of bed and also felt very weak, cou ld not come to hospital.. Patient states that he had prior history of leg cellulitis 2 years ago. Patient was seen by his physician 4 days arthritis and was recommended right knee brace. Patient states that he has been having increased right leg swelling since then. On admission patient was febrile with Tmax 102 F and blood pressure 93/55 pulse 102 and respiration 94% on 3 L oxygen via nasal cannula. Patient take Lasix 40 mg twice daily at home. Laboratory data showed WBC 16.7 hemoglobin 14.6 and platelets 272 Sodium 137 potassium 2.9 chloride 101 bicarb is 26 BUN 21 and creatinine 1.25, total bilirubin 4.0 liver enzymes are not elevated. Troponin 0.052 and proBNP 1420. Right lower extremity duplex scan showed no evidence of DVT. EKG showed sinus tachycardia. 09/19/2023 Patient is lying in the bed. Awake alert and oriented. Right lower extremity is currently Kennedy wrapped. Swelling is improving. Patient has been afebrile. No nausea or vomiting. Patient has very minimal oral intake otherwise. Cultures have been negative. Patient is being continued on antibiotics at home cefazolin. ID is on board. Lab data showed WBC 13.4 hemoglobin 10.3 and platelets 158 sodium 142 potassium 3.3 chloride 108 bicarb is 28.9 BUN 20.3 and creatinine 1.8 and blood sugar 181 and calcium 7.8. Liver enzymes showed AST went up to 117 ALT 58 alk phos 69 albumin 2.5. Urinalysis showed 2+ protein trace glucose trace ketones and WBCs 3. 09/20/2023 Patient is lying in the bed. Awake alert and oriented. Requiring 2 L oxygen via nasal cannula. No complaints of chest pain or shortness of breath. Otherwise patient is complaining of nausea and vomiting and also diarrhea with abdominal distention. Otherwise right lower extremity swelling and redness is improving. Currently on IV antibiotic in the home with Unasyn. ID is on board. CT of the abdomen pelvis was ordered. Laboratory data showed WBC 14.9 hemoglobin 11.9 platelets 207 Sodium 141 potassium 3.2 chloride 110 bicarb is 26 BUN 13 creatinine 1.33 and blood sugar 133. Calcium 8.3. 2D echocardiogram showed LVH with mildly reduced LV systolic function. RV enlargement. Current medications reviewed. Objective - Vital Signs Vital signs: Vital Signs Temp 98.3 F 09/20/23 07:56 Pulse 79 09/20/23 07:56 Resp 19 09/20/23 08:46 BP 145/64 09/20/23 07:56 Pulse Ox 95 09/20/23 07:56 FiO2 Intake & Output 09/19/23 09/20/23 09/20/23 18:59 06:59 18:59 Weight 149.685 kg Other: Voiding Method Diaper Diaper Incontinent # Voids 3 1 - Exam PHYSICAL EXAMINATION: Patient is lying in the bed comfortably, no acute distress, awake alert and oriented. Morbidly obese. HEENT: Normocephalic. Neck is supple. Pupils reactive. Nostrils clear. Oral cavity is moist. Neck reveals no JVD, carotid bruits, or thyromegaly. CHEST EXAMINATION: Trachea is central. Symmetrical expansion. Bibasilar diminished sounds otherwise lung turner clear to auscultation and percussion. CARDIAC: Normal S1, S2 with no gallops. No murmurs ABDOMEN: Soft. Bowel sounds present. No organomegaly. No abdominal bruits. Extremities: Bilateral lower extremity 2+ edema and right lower extremity swelling and redness over the parsons and with ruptured blister and superficial ulceration.. No clubbing or cyanosis Neurologically awake, alert, oriented x3 with well-coordinated movements. No focal deficits noted Skin: No rash or skin lesions. Psychiatric: Coperative. Nonsuicidal Musculoskeletal: No joint swelling or deformity. Normal range of motion. - Labs CBC & Chem 7: 09/22/23 19:03 09/23/23 05:58 Labs: Abnormal Lab Results - Last 24 Hours (Table) 09/19/23 09/20/23 09/20/23 Range/Units 07:21 06:27 06:27 WBC 14.9 H (3.8-10.6) k/uL RBC 3.51 L (4.30-5.90) m/uL Hgb 11.9 L (13.0-17.5) gm/dL Hct 35.6 L (39.0-53.0) % MCV 101.3 H (80.0-100.0) fL Immature Gran # 0.10 H (0.00-0.04) X 10*3/uL Neutrophils # 12.29 H 13.3 H (1.80-7.70) X 10*3/uL Lymphocytes # 0.40 L 0.6 L (0.90-5.00) X 10*3/uL Eosinophils # 0 L (0.04-0.35) X 10*3/uL Potassium 3.2 L (3.5-5.1) mmol/L Chloride 110 H (98-107) mmol/L BUN 30 H (9-20) mg/dL Creatinine 1.33 H (0.66-1.25) mg/dL Glucose 132 H (74-99) mg/dL Calcium 8.3 L (8.4-10.2) mg/dL Microbiology - Last 24 Hours (Table) 09/17/23 18:05 Blood Culture - Preliminary Blood 09/17/23 17:50 Blood Culture - Preliminary Blood Assessment and Plan Assessment: Right lower extremity cellulitis with ruptured blister and superficial ulceration Sepsis secondary to above Nausea vomiting abdominal pain and diarrhea Severe hypokalemia. Replaced. Chronic bilateral lower extremity swelling. Paroxysmal atrial fibrillation. Patient is currently in sinus rhythm. Not on anticoagulation. Elevated troponin level Elevated bilirubin level Hypertension Hyperlipidemia Chronic back pain Morbid obesity BMI 44.8 GI and DVT prophylaxis with PPI and Lovenox subcu. Plan: Patient will be continued on antibiotics cefazolin as per ID recommendations. Changed to Unasyn. Was given ceftriaxone and vancomycin in the ER. Follow-up wound cultures and blood cultures. IV fluids on hold. Continue Lasix and replace electrolytes/potassium. CT of the abdomen pelvis was ordered. Rule out C. difficile. 2D echocardiogram showed LVH with mildly reduced LV systolic function. RV enlargement. Cardiology is following. Continue with daily monitoring and follow-up closely. Prognosis is guarded. Time with Patient: Greater than 30
--- NOTE | 2023-09-23 10:59 | P.PN ---
Subjective Progress Note Date: 09/21/23 Patient is a 73-year-old male with a past medical history of atrial fibrillation not on anticoagulation, hypertension, hyperlipidemia, chronic back pain and morbid obesity with a BMI of 44.8 and also chronic bilateral lower extremity swelling presents to ER with complaints of worsening right lower extremity swelling and ruptured blister along with redness and increased pain. Patient has been having worsening swelling for the past 2 weeks. Patient is currently living by himself and his girlfriend is out of town for the past 2 weeks. Patient was unable to get out of bed and also felt very weak, cou ld not come to hospital.. Patient states that he had prior history of leg cellulitis 2 years ago. Patient was seen by his physician 4 days arthritis and was recommended right knee brace. Patient states that he has been having increased right leg swelling since then. On admission patient was febrile with Tmax 102 F and blood pressure 93/55 pulse 102 and respiration 94% on 3 L oxygen via nasal cannula. Patient take Lasix 40 mg twice daily at home. Laboratory data showed WBC 16.7 hemoglobin 14.6 and platelets 272 Sodium 137 potassium 2.9 chloride 101 bicarb is 26 BUN 21 and creatinine 1.25, total bilirubin 4.0 liver enzymes are not elevated. Troponin 0.052 and proBNP 1420. Right lower extremity duplex scan showed no evidence of DVT. EKG showed sinus tachycardia. 09/19/2023 Patient is lying in the bed. Awake alert and oriented. Right lower extremity is currently Kennedy wrapped. Swelling is improving. Patient has been afebrile. No nausea or vomiting. Patient has very minimal oral intake otherwise. Cultures have been negative. Patient is being continued on antibiotics at home cefazolin. ID is on board. Lab data showed WBC 13.4 hemoglobin 10.3 and platelets 158 sodium 142 potassium 3.3 chloride 108 bicarb is 28.9 BUN 20.3 and creatinine 1.8 and blood sugar 181 and calcium 7.8. Liver enzymes showed AST went up to 117 ALT 58 alk phos 69 albumin 2.5. Urinalysis showed 2+ protein trace glucose trace ketones and WBCs 3. 09/20/2023 Patient is lying in the bed. Awake alert and oriented. Requiring 2 L oxygen via nasal cannula. No complaints of chest pain or shortness of breath. Otherwise patient is complaining of nausea and vomiting and also diarrhea with abdominal distention. Otherwise right lower extremity swelling and redness is improving. Currently on IV antibiotic in the home with Unasyn. ID is on board. CT of the abdomen pelvis was ordered. Laboratory data showed WBC 14.9 hemoglobin 11.9 platelets 207 Sodium 141 potassium 3.2 chloride 110 bicarb is 26 BUN 13 creatinine 1.33 and blood sugar 133. Calcium 8.3. 2D echocardiogram showed LVH with mildly reduced LV systolic function. RV enlargement. 09/21/2023 Patient is currently lying in the bed. Still complains of nausea and unable to tolerate any solid diet. Patient was able to drink water. Episode of vomiting. Denies any hematemesis. No fever no chills. Denies any abdominal pain. Otherwise right lower extremity swelling and redness is improving. Wound care is being done. Patient remains on antibiotics of cefazolin and vancomycin was added due to worsening leukocytosis. CT of the abdomen pelvis showed gastric distention with contrast passes into the proximal and mid small bowel. There is suggested eccentric wall thickening of the proximal duodenum. Underlying mass is not excluded. Direct visualization is recommended. Correlate for gastroparesis. No CT evidence for complete bowel obstruction. Hepatomegaly. Colonic diverticulosis. Cholelithiasis. Trace left and small right pleural effusions with partial atelectasis of the right lower lobe. Sequela of prior granulomatous disease. Lab data showed WBC 19.15 hemoglobin 11.7 and platelets 247 sodium 143 potassium 3.7 chloride 105 bicarb is 24 BUN 24.7 and creatinine 1.49 blood sugar 53 and calcium 8.2. Current medications reviewed. Objective - Vital Signs Vital signs: Vital Signs Temp 97.8 F 09/21/23 19:06 Pulse 84 09/21/23 21:09 Resp 15 09/21/23 19:06 BP 116/69 09/21/23 19:06 Pulse Ox 95 09/21/23 19:06 FiO2 Intake & Output 09/21/23 09/21/23 09/22/23 06:59 18:59 06:59 Output Total 850 800 Balance -850 -800 Output: Urine 850 800 Other: Voiding Method Diaper Diaper External Catheter External Catheter - Exam PHYSICAL EXAMINATION: Patient is lying in the bed comfortably, no acute distress, awake alert and oriented. Morbidly obese. HEENT: Normocephalic. Neck is supple. Pupils reactive. Nostrils clear. Oral cavity is moist. Neck reveals no JVD, carotid bruits, or thyromegaly. CHEST EXAMINATION: Trachea is central. Symmetrical expansion. Bibasilar diminished sounds otherwise lung turner clear to auscultation and percussion. CARDIAC: Normal S1, S2 with no gallops. No murmurs ABDOMEN: Soft. Mild distention. Bowel sounds present. No organomegaly. No abdominal bruits. Extremities: Bilateral lower extremity 2+ edema and right lower extremity swelling and redness over the parsons and with ruptured blister and superficial ulceration.. No clubbing or cyanosis Neurologically awake, alert, oriented x3 with well-coordinated movements. No focal deficits noted Skin: No rash or skin lesions. Psychiatric: Coperative. Nonsuicidal Musculoskeletal: No joint swelling or deformity. Normal range of motion. - Labs CBC & Chem 7: 09/22/23 19:03 09/23/23 05:58 Labs: Abnormal Lab Results - Last 24 Hours (Table) 09/21/23 09/21/23 Range/Units 07:04 07:04 WBC 19.15 H (4.50-10.00) X 10*3/uL RBC 3.52 L (4.40-5.60) X 10*6/uL Hgb 11.7 L (13.0-17.0) g/dL Hct 36.4 L (39.6-50.0) % MCV 103.4 H (80.0-97.0) FL MCH 33.2 H (27.0-32.0) pg RDW 15.1 H (11.5-14.5) % MPV 9.4 L (9.5-12.2) FL Immature Gran # 0.24 H (0.00-0.04) X 10*3/uL Neutrophils # 16.87 H (1.80-7.70) X 10*3/uL Anion Gap 14.00 H (4.00-12.00) mmol/L Est GFR (CKD-EPI) 53 L (>=60) Calcium 8.2 L (8.7-10.3) mg/dL Microbiology - Last 24 Hours (Table) 09/17/23 18:05 Blood Culture - Preliminary Blood 09/17/23 17:50 Blood Culture - Preliminary Blood Assessment and Plan Assessment: Right lower extremity cellulitis with ruptured blister and superficial ulceration Sepsis secondary to above Eccentric wall thickening of the proximal duodenum. Underlying mass is not excluded. Nausea vomiting abdominal pain and diarrhea Severe hypokalemia. Replaced. Chronic bilateral lower extremity swelling. Paroxysmal atrial fibrillation. Patient is currently in sinus rhythm. Not on anticoagulation. Elevated troponin level Elevated bilirubin level Hypertension Hyperlipidemia Chronic back pain Morbid obesity BMI 44.8 GI and DVT prophylaxis with PPI and Lovenox subcu. Plan: Patient will be continued on antibiotics in the form of Unasyn and vancomycin. Follow-up wound cultures and blood cultures. Due to abnormal CT findings GI was consulted for possible EGD Symptomatic management for nausea and vomiting and encourage oral intake.. Continue Lasix and replace electrolytes/potassium. CT of the abdomen pelvis report as above. C. difficile. 2D echocardiogram showed LVH with mildly reduced LV systolic function. RV enlargement. Cardiology is following. Continue with daily monitoring and follow-up closely. Prognosis is guarded. Time with Patient: Greater than 30
[2023-09-23 11:02] LABS: Basophils # (A) 0.05 X 10*3/uL (0.00-0.10); Basophils % (A) 0.3 %; Eosinophils # (A) 0.15 X 10*3/uL (0.04-0.35); HCT 35.1 % (39.6-50.0); HGB 11.4 g/dL (13.0-17.0); Lymphocytes # (A) 0.99 X 10*3/uL (0.90-5.00); Lymphocytes % (A) 6.4 %; MCH 33.3 pg (27.0-32.0); MCHC 32.5 g/dL (32.0-37.0); MCV 102.6 FL (80.0-97.0); Mean Platelet Volume 10.9 FL (9.5-12.2); Monocytes # (A) 0.73 X 10*3/uL (0.20-1.00); Monocytes % (A) 4.7 %; NRBC Per 100 WBC 0 X 10*3/uL (0.00-0.01); Neutrophils # (A) 13.43 X 10*3/uL (1.80-7.70); Neutrophils % (A) 86.5 %; Platelet Count 243 X 10*3/uL (140-440); RBC 3.42 X 10*6/uL (4.40-5.60); RDW 14.6 % (11.5-14.5); WBC 15.52 X 10*3/uL (4.50-10.00)
--- NOTE | 2023-09-23 11:05 | P.PN ---
Subjective Progress Note Date: 09/22/23 Patient is a 73-year-old male with a past medical history of atrial fibrillation not on anticoagulation, hypertension, hyperlipidemia, chronic back pain and morbid obesity with a BMI of 44.8 and also chronic bilateral lower extremity swelling presents to ER with complaints of worsening right lower extremity swelling and ruptured blister along with redness and increased pain. Patient has been having worsening swelling for the past 2 weeks. Patient is currently living by himself and his girlfriend is out of town for the past 2 weeks. Patient was unable to get out of bed and also felt very weak, cou ld not come to hospital.. Patient states that he had prior history of leg cellulitis 2 years ago. Patient was seen by his physician 4 days arthritis and was recommended right knee brace. Patient states that he has been having increased right leg swelling since then. On admission patient was febrile with Tmax 102 F and blood pressure 93/55 pulse 102 and respiration 94% on 3 L oxygen via nasal cannula. Patient take Lasix 40 mg twice daily at home. Laboratory data showed WBC 16.7 hemoglobin 14.6 and platelets 272 Sodium 137 potassium 2.9 chloride 101 bicarb is 26 BUN 21 and creatinine 1.25, total bilirubin 4.0 liver enzymes are not elevated. Troponin 0.052 and proBNP 1420. Right lower extremity duplex scan showed no evidence of DVT. EKG showed sinus tachycardia. 09/19/2023 Patient is lying in the bed. Awake alert and oriented. Right lower extremity is currently Kennedy wrapped. Swelling is improving. Patient has been afebrile. No nausea or vomiting. Patient has very minimal oral intake otherwise. Cultures have been negative. Patient is being continued on antibiotics at home cefazolin. ID is on board. Lab data showed WBC 13.4 hemoglobin 10.3 and platelets 158 sodium 142 potassium 3.3 chloride 108 bicarb is 28.9 BUN 20.3 and creatinine 1.8 and blood sugar 181 and calcium 7.8. Liver enzymes showed AST went up to 117 ALT 58 alk phos 69 albumin 2.5. Urinalysis showed 2+ protein trace glucose trace ketones and WBCs 3. 09/20/2023 Patient is lying in the bed. Awake alert and oriented. Requiring 2 L oxygen via nasal cannula. No complaints of chest pain or shortness of breath. Otherwise patient is complaining of nausea and vomiting and also diarrhea with abdominal distention. Otherwise right lower extremity swelling and redness is improving. Currently on IV antibiotic in the home with Unasyn. ID is on board. CT of the abdomen pelvis was ordered. Laboratory data showed WBC 14.9 hemoglobin 11.9 platelets 207 Sodium 141 potassium 3.2 chloride 110 bicarb is 26 BUN 13 creatinine 1.33 and blood sugar 133. Calcium 8.3. 2D echocardiogram showed LVH with mildly reduced LV systolic function. RV enlargement. 09/21/2023 Patient is currently lying in the bed. Still complains of nausea and unable to tolerate any solid diet. Patient was able to drink water. Episode of vomiting. Denies any hematemesis. No fever no chills. Denies any abdominal pain. Otherwise right lower extremity swelling and redness is improving. Wound care is being done. Patient remains on antibiotics of cefazolin and vancomycin was added due to worsening leukocytosis. CT of the abdomen pelvis showed gastric distention with contrast passes into the proximal and mid small bowel. There is suggested eccentric wall thickening of the proximal duodenum. Underlying mass is not excluded. Direct visualization is recommended. Correlate for gastroparesis. No CT evidence for complete bowel obstruction. Hepatomegaly. Colonic diverticulosis. Cholelithiasis. Trace left and small right pleural effusions with partial atelectasis of the right lower lobe. Sequela of prior granulomatous disease. Lab data showed WBC 19.15 hemoglobin 11.7 and platelets 247 sodium 143 potassium 3.7 chloride 105 bicarb is 24 BUN 24.7 and creatinine 1.49 blood sugar 53 and calcium 8.2. 09/22/2023 Patient is lying in the bed. Awake alert but still complains of nausea and unable to take any oral intake. No diarrhea. No complaints of abdominal pain. Did not have bowel movement. Patient feels abdominal is distended/bloated. No complaints of chest pain or shortness of breath. Patient is currently on 2 L oxygen via nasal cannula. Laboratory data showed WBC remains the same at 19.3 hemoglobin 13.3 and platelets 255. Other laboratory data reviewed. Blood cultures have been negative so far. Patient antibiotics remains on antibiotics vancomycin and Unasyn. Current medications reviewed. Objective - Vital Signs Vital signs: Vital Signs Temp 98.4 F 09/22/23 19:10 Pulse 110 H 09/22/23 19:10 Resp 19 09/22/23 19:10 BP 122/78 09/22/23 19:10 Pulse Ox 95 09/22/23 19:10 FiO2 Intake & Output 09/22/23 09/22/23 09/23/23 06:59 18:59 06:59 Output Total 750 400 Balance -750 -400 Output: Urine 750 400 Other: Voiding Method Diaper External Catheter - Exam PHYSICAL EXAMINATION: Patient is lying in the bed comfortably, no acute distress, awake alert and oriented. Morbidly obese. HEENT: Normocephalic. Neck is supple. Pupils reactive. Nostrils clear. Oral cavity is moist. Neck reveals no JVD, carotid bruits, or thyromegaly. CHEST EXAMINATION: Trachea is central. Symmetrical expansion. Bibasilar diminished sounds otherwise lung turner clear to auscultation and percussion. CARDIAC: Normal S1, S2 with no gallops. No murmurs ABDOMEN: Soft. Mild distention. Bowel sounds present. No organomegaly. No abdominal bruits. Extremities: Bilateral lower extremity 2+ edema and right lower extremity swelling and redness over the parsons and with ruptured blister and superficial ulceration.. No clubbing or cyanosis Neurologically awake, alert, oriented x3 with well-coordinated movements. No focal deficits noted Skin: No rash or skin lesions. Psychiatric: Coperative. Nonsuicidal Musculoskeletal: No joint swelling or deformity. Normal range of motion. - Labs CBC & Chem 7: 09/23/23 05:58 09/23/23 05:58 Labs: Abnormal Lab Results - Last 24 Hours (Table) 09/22/23 Range/Units 19:03 WBC 19.3 H (3.8-10.6) k/uL RBC 3.91 L (4.30-5.90) m/uL MCV 101.9 H (80.0-100.0) fL Neutrophils # 16.4 H (1.3-7.7) k/uL Lymphocytes # 0.8 L (1.0-4.8) k/uL Monocytes # 1.4 H (0-1.0) k/uL Assessment and Plan Assessment: Right lower extremity cellulitis with ruptured blister and superficial ulceration Sepsis secondary to above Eccentric wall thickening of the proximal duodenum. Underlying mass is not excluded. Nausea vomiting abdominal pain and diarrhea Severe hypokalemia. Replaced. Chronic bilateral lower extremity swelling. Paroxysmal atrial fibrillation. Patient is currently in sinus rhythm. Not on anticoagulation. Elevated troponin level Elevated bilirubin level Hypertension Hyperlipidemia Chronic back pain Morbid obesity BMI 44.8 GI and DVT prophylaxis with PPI and Lovenox subcu. Plan: Patient will be continued on antibiotics in the form of Unasyn and vancomycin. Follow-up wound cultures and blood cultures. Due to abnormal CT findings GI was consulted for possible EGD Symptomatic management for nausea and vomiting and encourage oral intake.. Continue Lasix and replace electrolytes/potassium. CT of the abdomen pelvis report as above. 2D echocardiogram showed LVH with mildly reduced LV systolic function. RV enlargement. Cardiology is following. Continue with daily monitoring and follow-up closely. Prognosis is guarded. Time with Patient: Greater than 30
[2023-09-23] MEDS: POTASSIUM CHLORIDE ER 20 MEQ TAB.ER PO SCH (12:01)
[2023-09-23] MEDS: POTASSIUM CHLORIDE 20 MEQ in WATER FOR INJECTION 1 100ML.BAG IVPB STA (13:52)
[2023-09-23] MEDS: FUROSEMIDE 10 MG/ML 2 ML VIAL IV ONE (13:53)
--- NOTE | 2023-09-23 14:41 | P.PN ---
Subjective Progress Note Date: 09/23/23 Principal diagnosis: Reason for follow-up is right lower extremity wound and cellulitis Patient is a 73-year-old male with a past medical history significant for hypertension hyperlipidemia atrial fibrillation chronic back pain patient presented to hospital with increasing swelling redness to the right leg with some blister formation along with nausea vomiting ID consulted concerning for the right lower extremity cellulitis. On today's evaluation that is 09/23/2023,the patient remains to be afebrile, patient is on 2 L nasal cannula supplemental oxygen and complaining of some shortness of breath also having abdominal distention nausea but no vomiting did not have a bowel movement passing some gas complaining of some burning pain to the right lower extremity. Patient did lost his IV Patient white count down to 15.5 as of yesterday no CBC was done today creat inine is 1.27 blood culture has been negative Objective - Vital Signs Vital signs: Vital Signs Temp 98.7 F 09/23/23 07:13 Pulse 78 09/23/23 09:24 Resp 19 09/23/23 08:35 BP 169/79 09/23/23 07:13 Pulse Ox 92 L 09/23/23 07:13 FiO2 Intake & Output 09/22/23 09/23/23 09/23/23 18:59 06:59 18:59 Output Total 400 1450 Balance -400 -1450 Output: Urine 400 1450 Other: Voiding Method External Catheter - Exam GENERAL DESCRIPTION: An elderly male lying in bed in no distress RESPIRATORY SYSTEM: Unlabored breathing , decreased breath sounds at bases HEART: S1 S2 regular rate and rhythm , ABDOMEN: Soft , no tenderness EXTREMITIES: Right lower extremity wound currently dressed - Labs CBC & Chem 7: 09/23/23 05:58 09/23/23 05:58 Labs: Abnormal Lab Results - Last 24 Hours (Table) 09/22/23 09/23/23 09/23/23 Range/Units 19:03 05:58 05:58 WBC 19.3 H 15.52 H (3.8-10.6) k/uL RBC 3.91 L 3.42 L (4.30-5.90) m/uL Hgb 11.4 L (13.0-17.0) g/dL Hct 35.1 L (39.6-50.0) % MCV 101.9 H 102.6 H (80.0-100.0) fL MCH 33.3 H (27.0-32.0) pg RDW 14.6 H (11.5-14.5) % Immature Gran # 0.17 H (0.00-0.04) X 10*3/uL Neutrophils # 16.4 H 13.43 H (1.3-7.7) k/uL Lymphocytes # 0.8 L (1.0-4.8) k/uL Monocytes # 1.4 H (0-1.0) k/uL Sodium 136 L (137-145) mmol/L Potassium 3.0 L (3.5-5.1) mmol/L BUN 30 H (9-20) mg/dL Creatinine 1.27 H (0.66-1.25) mg/dL Glucose 132 H (74-99) mg/dL Calcium 7.7 L (8.4-10.2) mg/dL Total Bilirubin 2.4 H (0.2-1.3) mg/dL AST 115 H (17-59) U/L Alkaline Phosphatase 138 H (38-126) U/L C-Reactive Protein 24.5 H (<1.0) mg/dL Total Protein 5.3 L (6.3-8.2) g/dL Albumin 2.3 L (3.5-5.0) g/dL Microbiology - Last 24 Hours (Table) 09/17/23 18:05 Blood Culture - Final Blood 09/17/23 17:50 Blood Culture - Final Blood Assessment and Plan (1) Sepsis Current Visit: Yes Status: Acute Code(s): A41.9 - SEPSIS, UNSPECIFIED ORGANISM SNOMED Code(s): 30715806 (2) Leg wound, right Current Visit: Yes Status: Acute Code(s): S81.801A - UNSPECIFIED OPEN WOUND, RIGHT LOWER LEG, INITIAL ENCOUNTER SNOMED Code(s): 75346276488140566 (3) Cellulitis of right leg Current Visit: Yes Status: Acute Code(s): L03.115 - CELLULITIS OF RIGHT LOWER LIMB SNOMED Code(s): 64526065454391450 Plan: 1patient presented to hospital with sepsis in this patient who did have a diffuse swelling redness to bilateral extremity some superficial ulceration probably blister in this patient noted evidence of fluid overload likely representing a streptococcal cellulitis, clinically not behaving as MRSA or gram-negative infection. 2patient to continue with Aquacel silver dressing to the open wound followed by Kennedy wrap from just above the toe to below the knee change daily. 3patient did have worsening of the white count and the patient also have significant GI symptoms, patient did have CT of abdominal pelvis some thickening of the duodenum, radiology recommended direct visualization GI should be consulted for EGD. 4patient did have improvement to the right lower extremity cellulitis however seem to have worsening abdominal distention we will obtain acute abdominal series, patient also lost his IV Unasyn and Vanco has been discontinued currently on oral Augmentin we will repeat a CBC with a.m. lab and the white count is trending down and is no need to place another IV discussed with admitting team Dictation was produced using [employer] dictation software. please excuse any grammatical, word or spelling errors. Time with Patient: Less than 30
--- NOTE | 2023-09-23 15:36 | XR ---
EXAMINATION TYPE: XR abdomen 2V DATE OF EXAM: 09/23/2023 3:24 PM CLINICAL INDICATION:Male, 73 years old with history of Distention and discomfort; [facility] COMPARISON: None. TECHNIQUE: Two views of the abdomen were obtained. FINDINGS: Redemonstration of a dilated gastric bubble. No evidence of free air. The large bowel is of normal caliber. There is no evidence for organomegaly or pneumoperitoneum. The osseous structures a re intact. No abnormal calcifications are present. Fecal material and gas are demonstrated throughou t the colon and rectum. IMPRESSION: Overall stable appearance of a dilated stomach, further discussed on recent CT exam.
[2023-09-23] MEDS: ONDANSETRON 4 MG TAB PO PRN (16:43)
--- NOTE | 2023-09-24 01:09 | P.PN ---
Subjective Progress Note Date: 09/23/23 Patient is a 73-year-old male with a past medical history of atrial fibrillation not on anticoagulation, hypertension, hyperlipidemia, chronic back pain and morbid obesity with a BMI of 44.8 and also chronic bilateral lower extremity swelling presents to ER with complaints of worsening right lower extremity swelling and ruptured blister along with redness and increased pain. Patient has been having worsening swelling for the past 2 weeks. Patient is currently living by himself and his girlfriend is out of town for the past 2 weeks. Patient was unable to get out of bed and also felt very weak, cou ld not come to hospital.. Patient states that he had prior history of leg cellulitis 2 years ago. Patient was seen by his physician 4 days arthritis and was recommended right knee brace. Patient states that he has been having increased right leg swelling since then. On admission patient was febrile with Tmax 102 F and blood pressure 93/55 pulse 102 and respiration 94% on 3 L oxygen via nasal cannula. Patient take Lasix 40 mg twice daily at home. Laboratory data showed WBC 16.7 hemoglobin 14.6 and platelets 272 Sodium 137 potassium 2.9 chloride 101 bicarb is 26 BUN 21 and creatinine 1.25, total bilirubin 4.0 liver enzymes are not elevated. Troponin 0.052 and proBNP 1420. Right lower extremity duplex scan showed no evidence of DVT. EKG showed sinus tachycardia. 09/19/2023 Patient is lying in the bed. Awake alert and oriented. Right lower extremity is currently Kennedy wrapped. Swelling is improving. Patient has been afebrile. No nausea or vomiting. Patient has very minimal oral intake otherwise. Cultures have been negative. Patient is being continued on antibiotics at home cefazolin. ID is on board. Lab data showed WBC 13.4 hemoglobin 10.3 and platelets 158 sodium 142 potassium 3.3 chloride 108 bicarb is 28.9 BUN 20.3 and creatinine 1.8 and blood sugar 181 and calcium 7.8. Liver enzymes showed AST went up to 117 ALT 58 alk phos 69 albumin 2.5. Urinalysis showed 2+ protein trace glucose trace ketones and WBCs 3. 09/20/2023 Patient is lying in the bed. Awake alert and oriented. Requiring 2 L oxygen via nasal cannula. No complaints of chest pain or shortness of breath. Otherwise patient is complaining of nausea and vomiting and also diarrhea with abdominal distention. Otherwise right lower extremity swelling and redness is improving. Currently on IV antibiotic in the home with Unasyn. ID is on board. CT of the abdomen pelvis was ordered. Laboratory data showed WBC 14.9 hemoglobin 11.9 platelets 207 Sodium 141 potassium 3.2 chloride 110 bicarb is 26 BUN 13 creatinine 1.33 and blood sugar 133. Calcium 8.3. 2D echocardiogram showed LVH with mildly reduced LV systolic function. RV enlargement. 09/21/2023 Patient is currently lying in the bed. Still complains of nausea and unable to tolerate any solid diet. Patient was able to drink water. Episode of vomiting. Denies any hematemesis. No fever no chills. Denies any abdominal pain. Otherwise right lower extremity swelling and redness is improving. Wound care is being done. Patient remains on antibiotics of cefazolin and vancomycin was added due to worsening leukocytosis. CT of the abdomen pelvis showed gastric distention with contrast passes into the proximal and mid small bowel. There is suggested eccentric wall thickening of the proximal duodenum. Underlying mass is not excluded. Direct visualization is recommended. Correlate for gastroparesis. No CT evidence for complete bowel obstruction. Hepatomegaly. Colonic diverticulosis. Cholelithiasis. Trace left and small right pleural effusions with partial atelectasis of the right lower lobe. Sequela of prior granulomatous disease. Lab data showed WBC 19.15 hemoglobin 11.7 and platelets 247 sodium 143 potassium 3.7 chloride 105 bicarb is 24 BUN 24.7 and creatinine 1.49 blood sugar 53 and calcium 8.2. 09/22/2023 Patient is lying in the bed. Awake alert but still complains of nausea and unable to take any oral intake. No diarrhea. No complaints of abdominal pain. Did not have bowel movement. Patient feels abdominal is distended/bloated. No complaints of chest pain or shortness of breath. Patient is currently on 2 L oxygen via nasal cannula. Laboratory data showed WBC remains the same at 19.3 hemoglobin 13.3 and platelets 255. Other laboratory data reviewed. Blood cultures have been negative so far. Patient antibiotics remains on antibiotics vancomycin and Unasyn. 09/23/2023 Patient is lying in the bed. Awake alert and oriented x 3. Patient states that he feels better today. Abdomen is less distended. Also still complaining of some right upper quadrant abdominal pain. No complaints of chest pain or shortness of breath. Encouraged with incentive spirometry. Patient denies any bowel meant last couple of days. Able to pass flatus. No fever or chills Otherwise right lower extremity wound is wrapped. No discharge noted. Continued on IV antibiotics Unasyn and vancomycin. ID is on board. X-ray of the abdomen was ordered to rule out obstruction. Laboratory data showed WBC improved to 15.2 hemoglobin 11.4 and platelets 243 sodium 136 potassium 3.0 chloride 104 bicarb is 25 BUN 13 creatinine 1.27 and calcium 7.7 total bili 2.4 AST 115 ALT 48 alk phos 138 and CRP 24.5. Current medications reviewed. Objective - Vital Signs Vital signs: Vital Signs Temp 98.7 F 09/23/23 07:13 Pulse 78 09/23/23 09:24 Resp 19 09/23/23 08:35 BP 169/79 09/23/23 07:13 Pulse Ox 92 L 09/23/23 07:13 FiO2 Intake & Output 09/22/23 09/23/23 09/23/23 18:59 06:59 18:59 Output Total 400 1450 Balance -400 -1450 Output: Urine 400 1450 Other: Voiding Method External Catheter - Exam PHYSICAL EXAMINATION: Patient is lying in the bed comfortably, no acute distress, awake alert and oriented. Morbidly obese. HEENT: Normocephalic. Neck is supple. Pupils reactive. Nostrils clear. Oral cavity is moist. Neck reveals no JVD, carotid bruits, or thyromegaly. CHEST EXAMINATION: Trachea is central. Symmetrical expansion. Bibasilar diminished sounds otherwise lung turner clear to auscultation and percussion. CARDIAC: Normal S1, S2 with no gallops. No murmurs ABDOMEN: Soft. Mild distention. Bowel sounds present. No organomegaly. No abdominal bruits. Extremities: Bilateral lower extremity 2+ edema and right lower extremity swelling and redness over the parsons and with ruptured blister and superficial ulceration.. No clubbing or cyanosis Neurologically awake, alert, oriented x3 with well-coordinated movements. No focal deficits noted Skin: No rash or skin lesions. Psychiatric: Coperative. Nonsuicidal Musculoskeletal: No joint swelling or deformity. Normal range of motion. - Labs CBC & Chem 7: 09/23/23 05:58 09/23/23 05:58 Labs: Abnormal Lab Results - Last 24 Hours (Table) 09/22/23 09/23/23 09/23/23 Range/Units 19:03 05:58 05:58 WBC 19.3 H 15.52 H (3.8-10.6) k/uL RBC 3.91 L 3.42 L (4.30-5.90) m/uL Hgb 11.4 L (13.0-17.0) g/dL Hct 35.1 L (39.6-50.0) % MCV 101.9 H 102.6 H (80.0-100.0) fL MCH 33.3 H (27.0-32.0) pg RDW 14.6 H (11.5-14.5) % Immature Gran # 0.17 H (0.00-0.04) X 10*3/uL Neutrophils # 16.4 H 13.43 H (1.3-7.7) k/uL Lymphocytes # 0.8 L (1.0-4.8) k/uL Monocytes # 1.4 H (0-1.0) k/uL Sodium 136 L (137-145) mmol/L Potassium 3.0 L (3.5-5.1) mmol/L BUN 30 H (9-20) mg/dL Creatinine 1.27 H (0.66-1.25) mg/dL Glucose 132 H (74-99) mg/dL Calcium 7.7 L (8.4-10.2) mg/dL Total Bilirubin 2.4 H (0.2-1.3) mg/dL AST 115 H (17-59) U/L Alkaline Phosphatase 138 H (38-126) U/L C-Reactive Protein 24.5 H (<1.0) mg/dL Total Protein 5.3 L (6.3-8.2) g/dL Albumin 2.3 L (3.5-5.0) g/dL Microbiology - Last 24 Hours (Table) 09/17/23 18:05 Blood Culture - Final Blood 09/17/23 17:50 Blood Culture - Final Blood Assessment and Plan Assessment: Right lower extremity cellulitis with ruptured blister and superficial ulceration Sepsis secondary to above Eccentric wall thickening of the proximal duodenum. Underlying mass is not excluded. Elevated liver enzymes Nausea vomiting abdominal pain and diarrhea. Improved. Severe hypokalemia. Replaced. Chronic bilateral lower extremity swelling. Paroxysmal atrial fibrillation. Patient is currently in sinus rhythm. Not on anticoagulation. Elevated troponin level Elevated bilirubin level Hypertension Hyperlipidemia Chronic back pain Morbid obesity BMI 44.8 GI and DVT prophylaxis with PPI and Lovenox subcu. Plan: Patient will be continued on antibiotics in the form of Unasyn and vancomycin. Patient lost IV line. Antibiotics changed to Augmentin. Follow-up wound cultures and blood cultures. Due to abnormal CT findings GI was consulted for possible EGD Symptomatic management for nausea and vomiting and encourage oral intake.. Continue Lasix and replace electrolytes/potassium. CT of the abdomen pelvis report as above. 2D echocardiogram showed LVH with mildly reduced LV systolic function. RV enlargement. Cardiology recommends medical management.. Continue with daily monitoring and follow-up closely. Prognosis is guarded. Time with Patient: Greater than 30
[2023-09-24] MEDS: FLUTICASONE NASAL 50MCG/SPRAY 16GM BTL EA NOSTRIL PRN (05:42)
[2023-09-24] MEDS: SODIUM CHLORIDE 0.9% 250 ML IV SCH (08:46)
[2023-09-24] MEDS: SODIUM CHLORIDE 0.9% 1,000 ML IV SCH (08:47)
[2023-09-24 08:58] LABS: ALT 42 U/L (4-49); AST 78 U/L (17-59); African American GFR (CKD) 66 (>60 ml/min/1.73 sqM); Albumin 2.2 g/dL (3.5-5.0); Albumin/Globulin Ratio 0.8; Alkaline Phosphatase 111 U/L (38-126); Anion Gap 5 mmol/L; Blood Urea Nitrogen 30 mg/dL (9-20); Calcium 7.7 mg/dL (8.4-10.2); Carbon Dioxide 27 mmol/L (22-30); Chloride 104 mmol/L (98-107); Globulin 2.8 g/dL; Glucose 219 mg/dL (74-99); Non-African American GFR(CKD) 57 (>60 ml/min/1.73 sqM); Potassium 3.5 mmol/L (3.5-5.1); Sodium 136 mmol/L (137-145); Total Bilirubin 1.6 mg/dL (0.2-1.3)
[2023-09-24 10:16] LABS: Basophils # (A) 0.06 X 10*3/uL (0.00-0.10); Basophils % (A) 0.4 %; Eosinophils # (A) 0.23 X 10*3/uL (0.04-0.35); Eosinophils % (A) 1.7 %; HCT 35.8 % (39.6-50.0); HGB 11.9 g/dL (13.0-17.0); Lymphocytes # (A) 1.31 X 10*3/uL (0.90-5.00); Lymphocytes % (A) 9.5 %; MCH 34.4 pg (27.0-32.0); MCHC 33.2 g/dL (32.0-37.0); MCV 103.5 FL (80.0-97.0); Mean Platelet Volume 10.7 FL (9.5-12.2); Monocytes # (A) 0.63 X 10*3/uL (0.20-1.00); Monocytes % (A) 4.6 %; NRBC Per 100 WBC 0 X 10*3/uL (0.00-0.01); Neutrophils # (A) 11.32 X 10*3/uL (1.80-7.70); Neutrophils % (A) 82.3 %; Platelet Count 255 X 10*3/uL (140-440); RBC 3.46 X 10*6/uL (4.40-5.60); RDW 14.8 % (11.5-14.5); WBC 13.75 X 10*3/uL (4.50-10.00)
[2023-09-24] MEDS: bisacodyL 10 MG SUPP RECTAL STA (11:49)
--- NOTE | 2023-09-24 18:18 | P.PN ---
Subjective Progress Note Date: 09/24/23 Principal diagnosis: Reason for follow-up is right lower extremity wound and cellulitis Patient is a 73-year-old male with a past medical history significant for hypertension hyperlipidemia atrial fibrillation chronic back pain patient presented to hospital with increasing swelling redness to the right leg with some blister formation along with nausea vomiting ID consulted concerning for the right lower extremity cellulitis. On today's evaluation that is 09/24/2023, the patient continues to be afebrile, the patient is on 2 L nasal cannula oxygen and breathing comfortably, the Pt denies having any chest pain or cough, the patient denies having any abdominal pain no vomiting did have a bowel movement finally denies any worsening pain to the right lower extremity. Patient white count is down to 13.75 creatinine is 1.24 blood culture negative Objective - Vital Signs Vital signs: Vital Signs Temp 97.9 F 09/24/23 07:50 Pulse 75 09/24/23 07:50 Resp 19 09/24/23 07:50 BP 110/73 09/24/23 10:00 Pulse Ox 96 09/24/23 07:50 FiO2 Intake & Output 09/23/23 09/24/23 09/24/23 18:59 06:59 18:59 Output Total 600 850 200 Balance -600 -850 -200 Output: Urine 600 850 200 Other: Voiding Method External Catheter External Catheter # Bowel Movements 1 - Exam GENERAL DESCRIPTION: An elderly male lying in bed in no distress RESPIRATORY SYSTEM: Unlabored breathing , decreased breath sounds at bases HEART: S1 S2 regular rate and rhythm , ABDOMEN: Soft , no tenderness EXTREMITIES: Right lower extremity wound currently dressed - Labs CBC & Chem 7: 09/24/23 08:16 09/24/23 08:16 Labs: Abnormal Lab Results - Last 24 Hours (Table) 09/24/23 09/24/23 09/24/23 Range/Units 08:16 08:16 08:16 WBC 13.75 H (4.50-10.00) X 10*3/uL RBC 3.46 L (4.40-5.60) X 10*6/uL Hgb 11.9 L (13.0-17.0) g/dL Hct 35.8 L (39.6-50.0) % MCV 103.5 H (80.0-97.0) FL MCH 34.4 H (27.0-32.0) pg RDW 14.8 H (11.5-14.5) % Immature Gran # 0.20 H (0.00-0.04) X 10*3/uL Neutrophils # 11.32 H (1.80-7.70) X 10*3/uL Sodium 136 L (137-145) mmol/L Potassium 3.4 L (3.5-5.1) mmol/L BUN 30 H (9-20) mg/dL Glucose 219 H (74-99) mg/dL Calcium 7.7 L (8.4-10.2) mg/dL Total Bilirubin 1.6 H (0.2-1.3) mg/dL AST 78 H (17-59) U/L Total Protein 5.0 L (6.3-8.2) g/dL Albumin 2.2 L (3.5-5.0) g/dL Assessment and Plan (1) Sepsis Current Visit: Yes Status: Acute Code(s): A41.9 - SEPSIS, UNSPECIFIED ORGANISM SNOMED Code(s): 46912566 (2) Leg wound, right Current Visit: Yes Status: Acute Code(s): S81.801A - UNSPECIFIED OPEN WOUND, RIGHT LOWER LEG, INITIAL ENCOUNTER SNOMED Code(s): 72645247665924734 (3) Cellulitis of right leg Current Visit: Yes Status: Acute Code(s): L03.115 - CELLULITIS OF RIGHT LOWER LIMB SNOMED Code(s): 09089502593433123 Plan: 1patient presented to hospital with sepsis in this patient who did have a diffuse swelling redness to bilateral extremity some superficial ulceration probably blister in this patient noted evidence of fluid overload likely representing a streptococcal cellulitis, clinically not behaving as MRSA or gram-negative infection. 2patient to continue with Aquacel silver dressing to the open wound followed by Kennedy wrap from just above the toe to below the knee change daily. 3patient did have CT of abdominal pelvis some thickening of the duodenum, radiology recommended direct visualization GI should be consulted for EGD. 4patient did have improvement to the right lower extremity cellulitis and the white count is trending down continue with the Augmentin Dictation was produced using [employer] dictation software. please excuse any grammatical, word or spelling errors. Time with Patient: Less than 30
--- NOTE | 2023-09-24 20:23 | P.PN ---
Subjective Progress Note Date: 09/24/23 Patient is a 73-year-old male with a past medical history of atrial fibrillation not on anticoagulation, hypertension, hyperlipidemia, chronic back pain and morbid obesity with a BMI of 44.8 and also chronic bilateral lower extremity swelling presents to ER with complaints of worsening right lower extremity swelling and ruptured blister along with redness and increased pain. Patient has been having worsening swelling for the past 2 weeks. Patient is currently living by himself and his girlfriend is out of town for the past 2 weeks. Patient was unable to get out of bed and also felt very weak, could not come to hospital.. Patient states that he had prior history of leg cellulitis 2 years ago. Patient was seen by his physician 4 days arthritis and was recommended right knee brace. Patient states that he has been having increased right leg swelling since then. On admission patient was febrile with Tmax 102 F and blood pressure 93/55 pulse 102 and respiration 94% on 3 L oxygen via nasal cannula. Patient take Lasix 40 mg twice daily at home. Laboratory data showed WBC 16.7 hemoglobin 14.6 and platelets 272 Sodium 137 potassium 2.9 chloride 101 bicarb is 26 BUN 21 and creatinine 1.25, total bilirubin 4.0 liver enzymes are not elevated. Troponin 0.052 and proBNP 1420. Right lower extremity duplex scan showed no evidence of DVT. EKG showed sinus tachycardia. 09/19/2023 Patient is lying in the bed. Awake alert and oriented. Right lower extremity is currently Kennedy wrapped. Swelling is improving. Patient has been afebrile. No nausea or vomiting. Patient has very minimal oral intake otherwise. Cultures have been negative. Patient is being continued on antibiotics at home cefazolin. ID is on board. Lab data showed WBC 13.4 hemoglobin 10.3 and platelets 158 sodium 142 potassium 3.3 chloride 108 bicarb is 28.9 BUN 20.3 and creatinine 1.8 and blood sugar 181 and calcium 7.8. Liver enzymes showed AST went up to 117 ALT 58 alk phos 69 albumin 2.5. Urinalysis showed 2+ protein trace glucose trace ketones and WBCs 3. 09/20/2023 Patient is lying in the bed. Awake alert and oriented. Requiring 2 L oxygen via nasal cannula. No complaints of chest pain or shortness of breath. Otherwise patient is complaining of nausea and vomiting and also diarrhea with abdominal distention. Otherwise right lower extremity swelling and redness is improving. Currently on IV antibiotic in the home with Unasyn. ID is on board. CT of the abdomen pelvis was ordered. Laboratory data showed WBC 14.9 hemoglobin 11.9 platelets 207 Sodium 141 potassium 3.2 chloride 110 bicarb is 26 BUN 13 creatinine 1.33 and blood sugar 133. Calcium 8.3. 2D echocardiogram showed LVH with mildly reduced LV systolic function. RV enlargement. 09/21/2023 Patient is currently lying in the bed. Still complains of nausea and unable to tolerate any solid diet. Patient was able to drink water. Episode of vomiting. Denies any hematemesis. No fever no chills. Denies any abdominal pain. Otherwise right lower extremity swelling and redness is improving. Wound care is being done. Patient remains on antibiotics of cefazolin and vancomycin was added due to worsening leukocytosis. CT of the abdomen pelvis showed gastric distention with contrast passes into the proximal and mid small bowel. There is suggested eccentric wall thickening of the proximal duodenum. Underlying mass is not excluded. Direct visualization is recommended. Correlate for gastroparesis. No CT evidence for complete bowel obstruction. Hepatomegaly. Colonic diverticulosis. Cholelithiasis. Trace left and small right pleural effusions with partial atelectasis of the right lower lobe. Sequela of prior granulomatous disease. Lab data showed WBC 19.15 hemoglobin 11.7 and platelets 247 sodium 143 potassium 3.7 chloride 105 bicarb is 24 BUN 24.7 and creatinine 1.49 blood sugar 53 and calcium 8.2. 09/22/2023 Patient is lying in the bed. Awake alert but still complains of nausea and unable to take any oral intake. No diarrhea. No complaints of abdominal pain. Did not have bowel movement. Patient feels abdominal is distended/bloated. No complaints of chest pain or shortness of breath. Patient is currently on 2 L oxygen via nasal cannula. Laboratory data showed WBC remains the same at 19.3 hemoglobin 13.3 and platelets 255. Other laboratory data reviewed. Blood cultures have been negative so far. Patient antibiotics remains on antibiotics vancomycin and Unasyn. 09/23/2023 Patient is lying in the bed. Awake alert and oriented x 3. Patient states that he feels better today. Abdomen is less distended. Also still complaining of some right upper quadrant abdominal pain. No complaints of chest pain or shortness of breath. Encouraged with incentive spirometry. Patient denies any bowel meant last couple of days. Able to pass flatus. No fever or chills Otherwise right lower extremity wound is wrapped. No discharge noted. Continued on IV antibiotics Unasyn and vancomycin. ID is on board. X-ray of the abdomen was ordered to rule out obstruction. Laboratory data showed WBC improved to 15.2 hemoglobin 11.4 and platelets 243 sodium 136 potassium 3.0 chloride 104 bicarb is 25 BUN 13 creatinine 1.27 and calcium 7.7 total bili 2.4 AST 115 ALT 48 alk phos 138 and CRP 24.5. 09/24/2023 Patient is evaluated today on the medical floor in follow up. He is alert x 3 today. Having complaints of abdominal discomfort and left quadrant pain. Having multiple episodes of lose stool today. He had an abdominal xray completed revealing overall stable appearance of a dilated stomach, further discussed on recent CT exam. Fecal material and gas are demonstrated throughout the colon and rectum. Blood work today reveals white blood cell count of 13.75, hgb 11.9, sodium of 136, BUN 30, creatinine 1.24. Patient has been continued on oral lasix and received an additional dose of IV lasix yesterday. He was given a fluid bolus and normal saline infusion due to low blood pressures. We will stop both lasix and fluids at this time and repeat blood work tomorrow. Current medications reviewed. Review of Systems Constitutional: Denied any fatigue denied any fever. Cardio vascular: denied any chest pain, palpitations Gastrointestinal: denied any nausea, vomiting, diarrhea. Reports abdominal pain. Pulmonary: Denied any shortness of breath cough Neurologic denied any new focal deficits All inpatient medications were reviewed and appropriate changes in these medications as dictated in the interval history and assessment and plan PHYSICAL EXAMINATION: GENERAL: The patient is alert and oriented x3, not in any acute distress. Well developed, well nourished. HEENT: Pupils are round and equally reacting to light. EOMI. No scleral icterus. No conjunctival pallor. Normocephalic, atraumatic. No pharyngeal erythema. No thyromegaly. CARDIOVASCULAR: S1 and S2 present. No murmurs, rubs, or gallops. PULMONARY: Chest is clear to auscultation, no wheezing or crackles. ABDOMEN: Soft, nontender, distended, tympanic over the left quadrant. normoactive bowel sounds. No palpable organomegaly. MUSCULOSKELETAL: No joint swelling or deformity. EXTREMITIES: No cyanosis, clubbing, or pedal edema. NEUROLOGICAL: Gross neurological examination did not reveal any focal deficits. SKIN: No rashes. Assessment Right lower extremity cellulitis with ruptured blister and superficial ulceration Sepsis secondary to above Eccentric wall thickening of the proximal duodenum. Underlying mass is not excluded. Constipation Elevated liver enzymes Nausea vomiting abdominal pain and diarrhea. Improved. Macrocytic anemia will check vitamin B12 and folate level. Severe hypokalemia. Replaced. Chronic bilateral lower extremity swelling. Paroxysmal atrial fibrillation. Patient is currently in sinus rhythm. Not on anticoagulation. Elevated troponin level Elevated bilirubin level Hypertension Hyperlipidemia Chronic back pain Morbid obesity BMI 44.8 GI and DVT prophylaxis with PPI and Lovenox subcu. Plan: Patient will be continued on antibiotics in the form of Unasyn and vancomycin. Patient lost IV line. Antibiotics changed to Augmentin. Follow-up wound cultures and blood cultures. Due to abnormal CT findings GI was consulted for possible EGD. Symptomatic management for nausea and vomiting and encourage oral intake. CT of the abdomen pelvis report as above. 2D echocardiogram showed LVH with mildly reduced LV systolic function. RV enlargement. Cardiology recommends medical management.. Hold lasix and fluids. Repeat blood work in the AM. Continue with daily monitoring and follow-up closely. Prognosis is guarded. The impression and plan of care has been dictated by Macey Collins, Nurse Practitioner as directed. Dr. Julieta MD I have performed a history and physical examination and medical decision making of this patient, discussed the same with the dictator, and agree with the dictators assessment and plan as written, documented as a scribe. Based on total visit time, I have performed more than 50% of this visit. Objective - Vital Signs Vital signs: Vital Signs Temp 97.9 F 09/24/23 07:50 Pulse 75 09/24/23 07:50 Resp 19 09/24/23 07:50 BP 110/73 09/24/23 10:00 Pulse Ox 96 09/24/23 07:50 FiO2 Intake & Output 09/23/23 09/24/23 09/24/23 18:59 06:59 18:59 Output Total 600 850 200 Balance -600 -850 -200 Output: Urine 600 850 200 Other: Voiding Method External Catheter External Catheter # Bowel Movements 1 - Labs CBC & Chem 7: 09/24/23 08:16 09/24/23 08:16 Labs: Abnormal Lab Results - Last 24 Hours (Table) 09/24/23 09/24/23 09/24/23 Range/Units 08:16 08:16 08:16 WBC 13.75 H (4.50-10.00) X 10*3/uL RBC 3.46 L (4.40-5.60) X 10*6/uL Hgb 11.9 L (13.0-17.0) g/dL Hct 35.8 L (39.6-50.0) % MCV 103.5 H (80.0-97.0) FL MCH 34.4 H (27.0-32.0) pg RDW 14.8 H (11.5-14.5) % Immature Gran # 0.20 H (0.00-0.04) X 10*3/uL Neutrophils # 11.32 H (1.80-7.70) X 10*3/uL Sodium 136 L (137-145) mmol/L Potassium 3.4 L (3.5-5.1) mmol/L BUN 30 H (9-20) mg/dL Glucose 219 H (74-99) mg/dL Calcium 7.7 L (8.4-10.2) mg/dL Total Bilirubin 1.6 H (0.2-1.3) mg/dL AST 78 H (17-59) U/L Total Protein 5.0 L (6.3-8.2) g/dL Albumin 2.2 L (3.5-5.0) g/dL Assessment and Plan Time with Patient: Less than 30
--- NOTE | 2023-09-25 12:21 | P.CONS ---
History of Present Illness - Reason for Consult Consult date: 09/25/[address] Requesting physician: Julieta Shields - Chief Complaint Lower extremity wounds, weakness - History of Present Illness This is a pleasant 73-year-old male with a past medical history including morbid obesity, diabetes mellitus and hypertension who presented to the emergency department 8 days ago with complaints of lower extremity swelling, redness and wounds apparently as well as some diarrhea. He was admitted for sepsis noted to have elevated WBC fever with max temp of 102.0 and hypotensive. He states that he had new wounds to his lower extremities. He has had diarrhea for 10 to 14 days. He states it was more consistent prior to his hospitalization however once he has been hospitalized and has subsided quite a bit and completely had resolved. He had a little loose stool yesterday but states its mostly gas. He denied any fevers or chills. No recent antibiotics prior to coming to the hospital. No new medications. As part of his workup he had a CT of the abdomen pelvis on 09/20/[address] reported gastric distention with contrast passage into the proximal and mid small bowel. There is suggested eccentric wall thickening of the proximal duodenum. Underlying mass is not excluded. Direct visualization is recommended. Correlate for gastroparesis. No CT evidence for complete bowel obstruction, hepatomegaly, colonic diverticulosis without evidence for acute diverticulitis, cholelithiasis, trace left and small right pleural effusion with partial atelectasis of the right lower lobe and sequela of prior granulomatous disease. Gastroenterology consulted for abnormal CT. Patient denies any previous history of peptic ulcer disease, no previous history of upper endoscopy and no history of colonoscopy. He denies any abdominal pain no epigastric pain, no nausea or vomiting, no difficulty with swallowing and no complaints of acid reflux. He does state that he has not had much of an appetite and the smell of food has made him nauseous. Today's labs WBC 13.7 hemoglobin 11.9 platelet count 255,000 sodium 136 potassium 3.5 BUN 30 creatinine 1.24 total bilirubin 1.6 AST 78 ALT 42 alkaline phosphatase 111 Review of Systems REVIEW OF SYSTEMS: CARDIOPULMONARY: No chest pain or shortness of breath. Gastrointestinal: No abdominal pain. No nausea or vomiting. No hematemesis, coffee-ground emesis. No rectal bleeding, or melena. Patient had diarrhea, now resolved. GENITOURINARY: No dysuria or hematuria. MUSCULOSKELETAL: Reports normal range of motion., Joint pain. SKIN: No rashes. No jaundice. Lower extremity swelling, redness, wounds/cellulitis. ENDOCRINE: No chills, fevers. No excessive weight gain or loss. No polydipsia or polyuria. PSYCHIATRIC: Unremarkable. NEUROLOGY: No change in mental status. Denies dizziness, headache. ENT: Vision unremarkable. CONSTITUTIONAL: No recent weight loss. No fever, chills, night sweats. Past Medical History Past Medical History: Atrial Fibrillation, Hyperlipidemia, Hypertension Additional Past Medical History / Comment(s): chronic back pain, four buldging discs to back History of Any Multi-Drug Resistant Organisms: None Reported Past Surgical History: Heart Catheterization, Orthopedic Surgery Additional Past Surgical History / Comment(s): right knee sx Smoking Status: Never smoker Medications and Allergies Home Medications Medication Instructions Recorded Confirmed Type Atorvastatin [Lipitor] 40 mg PO HS 05/20/19 09/17/23 History Metoprolol Tartrate [Lopressor] 50 mg PO BID 05/20/19 09/17/23 History tiZANidine [Zanaflex] 4 mg PO BID@0900,1200 05/20/19 09/17/23 History tiZANidine [Zanaflex] 8 mg PO HS 05/20/19 09/17/23 History Acetaminophen [Tylenol Extra 1,000 mg PO TID 09/17/23 09/17/23 History Strength] Aspirin EC [Ecotrin Low Dose] 81 mg PO DAILY 09/17/23 09/17/23 History Furosemide [Lasix] 40 mg PO BID 09/17/23 09/17/23 History HYDROcodone/APAP 5-325MG [[place] 1 tab PO BID 09/17/23 09/17/23 History 5-325] Allergies Allergy/AdvReac Type Severity Reaction Status Date / Time No Known Allergies Allergy Verified 09/17/23 17:34 Physical Exam Vitals: Vital Signs Temp Pulse Resp BP BP BP Pulse Ox 09/25/23 08:31 93 L 09/25/23 08:27 77 114/70 09/25/23 01:24 98.1 F 77 18 108/63 96 09/24/23 20:00 97.8 F 78 19 109/64 94 L 09/24/23 15:32 98.3 F 75 19 115/73 95 09/24/23 10:00 110/73 Intake and Output 09/24/23 09/25/23 09/25/23 22:59 06:59 14:59 Intake Total 1700 Output Total 1100 Balance 1700 -1100 Intake: Intake, IV Titration 750 Amount Sodium Chloride 0.9% 1, 500 000 ml @ 50 mls/hr IV . Q20H SOO Rx#:[id number] Sodium Chloride 0.9% 250 250 ml @ 999 mls/hr IV .Q16M SOO Rx#:[id number] Oral 950 Output: Urine 1100 Other: Voiding Method External Catheter # Bowel Movements 1 1 General appearance: The patient is alert, oriented, appears in no acute distress. Morbidly obese. HET: Head is normocephalic and atraumatic. Conjunctiva pink. Sclera anicteric. Neck: Supple without lymphadenopathy. Trachea midline. Heart: Regular. Lungs: Equal expansion, normal respiratory effort. Abdomen: Soft, morbidly obese, nontender, nondistended. Skin: No rashes. No jaundice. Extremities: Normal skin color and turgor. Lower extremity edema. Neurological: No focal deficits. Alert and oriented x3. Results CBC & Chem 7: 09/25/23 15:11 09/24/23 08:16 Labs: Abnormal Lab Results - Last 24 Hours (Table) 09/24/23 09/24/23 Range/Units 08:16 08:16 WBC 13.75 H (4.50-10.00) X 10*3/uL RBC 3.46 L (4.40-5.60) X 10*6/uL Hgb 11.9 L (13.0-17.0) g/dL Hct 35.8 L (39.6-50.0) % MCV 103.5 H (80.0-97.0) FL MCH 34.4 H (27.0-32.0) pg RDW 14.8 H (11.5-14.5) % Immature Gran # 0.20 H (0.00-0.04) X 10*3/uL Neutrophils # 11.32 H (1.80-7.70) X 10*3/uL Sodium 136 L (137-145) mmol/L BUN 30 H (9-20) mg/dL Glucose 219 H (74-99) mg/dL Calcium 7.7 L (8.4-10.2) mg/dL Total Bilirubin 1.6 H (0.2-1.3) mg/dL AST 78 H (17-59) U/L Total Protein 5.0 L (6.3-8.2) g/dL Albumin 2.2 L (3.5-5.0) g/dL Comments: CT reported gastric distention with contrast passage into the proximal and mid small bowel. There is suggested eccentric wall thickening of the proximal duodenum. Underlying mass is not excluded. Direct visualization is recommended. Correlate for gastroparesis. No CT evidence for complete bowel obstruction, hepatomegaly, colonic diverticulosis without evidence for acute div erticulitis, cholelithiasis, trace left and small right pleural effusion with partial atelectasis of the right lower lobe and sequela of prior granulomatous disease. Liver ultrasound reports hepatomegaly correlate for underlying hepatocellular disease Assessment and Plan (1) Abnormal finding on CT scan Narrative/Plan: Patient came in for lower extremity wounds, fever and weakness. He also was reporting diarrhea and some abdominal distention. He had a CT of the abdomen pelvis reporting wall thickening in the proximal jejunum, cannot exclude neoplasm and recommend direct visualization. This is a patient with no previous history of upper or lower endoscopy. Denies any regular acid reflux and states abdominal distention and discomfort has improved. Diarrhea is improving. Unclear etiology however will proceed with upper endoscopy for further evaluation and direct visualization. Recommend colonoscopy as well however patient is declining at this time would prefer to be done as an outpatient. Current Visit: Yes Status: Acute Code(s): R93.89 - ABNORMAL FINDINGS ON DX IMAGING OF OTH BODY STRUCTURES SNOMED Code(s): 350414068 (2) Diarrhea Current Visit: Yes Status: Acute Code(s): R19.7 - DIARRHEA, UNSPECIFIED SNOMED Code(s): 49439178 (3) Elevated LFTs Narrative/Plan: Likely secondary to sepsis, hypotension. LFTs improving. May have some underlying hepatocellular disease with fatty liver secondary to diabetes mellitus and obesity. Current Visit: Yes Status: Acute Code(s): R79.89 - OTHER SPECIFIED ABNORMAL FINDINGS OF BLOOD CHEMISTRY SNOMED Code(s): 796759903 (4) Morbid obesity Current Visit: Yes Status: Acute Code(s): E66.01 - MORBID (SEVERE) OBESITY DUE TO EXCESS CALORIES SNOMED Code(s): 728978190 (5) Diabetes mellitus Current Visit: Yes Status: Acute Code(s): E11.9 - TYPE 2 DIABETES MELLITUS WITHOUT COMPLICATIONS SNOMED Code(s): 57321056 (6) Cellulitis of right leg Current Visit: Yes Status: Acute Code(s): L03.115 - CELLULITIS OF RIGHT LOWER LIMB SNOMED Code(s): 38891071048972111 Plan: 1. Continue symptomatic and supportive care 2. Continue Protonix 40 mg IV twice daily 3. Diet as tolerated, n.p.o. after midnight 4. Plan for upper endoscopy tomorrow. Recommend colonoscopy as outpatient. 5. Continue with rest of medical management per primary medical team Thank you for this consultation, we will continue to follow. Dr. Heath Sharp I agree with the dictator's note, documented as a scribe by Sania Pineda.
--- NOTE | 2023-09-25 14:42 | P.PN ---
Subjective Progress Note Date: 09/25/23 Patient is a 73-year-old male with a past medical history of atrial fibrillation not on anticoagulation, hypertension, hyperlipidemia, chronic back pain and morbid obesity with a BMI of 44.8 and also chronic bilateral lower extremity swelling presents to ER with complaints of worsening right lower extremity swelling and ruptured blister along with redness and increased pain. Patient has been having worsening swelling for the past 2 weeks. Patient is currently living by himself and his girlfriend is out of town for the past 2 weeks. Patient was unable to get out of bed and also felt very weak, could not come to hospital.. Patient states that he had prior history of leg cellulitis 2 years ago. Patient was seen by his physician 4 days arthritis and was recommended right knee brace. Patient states that he has been having increased right leg swelling since then. On admission patient was febrile with Tmax 102 F and blood pressure 93/55 pulse 102 and respiration 94% on 3 L oxygen via nasal cannula. Patient take Lasix 40 mg twice daily at home. Laboratory data showed WBC 16.7 hemoglobin 14.6 and platelets 272 Sodium 137 potassium 2.9 chloride 101 bicarb is 26 BUN 21 and creatinine 1.25, total bilirubin 4.0 liver enzymes are not elevated. Troponin 0.052 and proBNP 1420. Right lower extremity duplex scan showed no evidence of DVT. EKG showed sinus tachycardia. 09/19/2023 Patient is lying in the bed. Awake alert and oriented. Right lower extremity is currently Kennedy wrapped. Swelling is improving. Patient has been afebrile. No nausea or vomiting. Patient has very minimal oral intake otherwise. Cultures have been negative. Patient is being continued on antibiotics at home cefazolin. ID is on board. Lab data showed WBC 13.4 hemoglobin 10.3 and platelets 158 sodium 142 potassium 3.3 chloride 108 bicarb is 28.9 BUN 20.3 and creatinine 1.8 and blood sugar 181 and calcium 7.8. Liver enzymes showed AST went up to 117 ALT 58 alk phos 69 albumin 2.5. Urinalysis showed 2+ protein trace glucose trace ketones and WBCs 3. 09/20/2023 Patient is lying in the bed. Awake alert and oriented. Requiring 2 L oxygen via nasal cannula. No complaints of chest pain or shortness of breath. Otherwise patient is complaining of nausea and vomiting and also diarrhea with abdominal distention. Otherwise right lower extremity swelling and redness is improving. Currently on IV antibiotic in the home with Unasyn. ID is on board. CT of the abdomen pelvis was ordered. Laboratory data showed WBC 14.9 hemoglobin 11.9 platelets 207 Sodium 141 potassium 3.2 chloride 110 bicarb is 26 BUN 13 creatinine 1.33 and blood sugar 133. Calcium 8.3. 2D echocardiogram showed LVH with mildly reduced LV systolic function. RV enlargement. 09/21/2023 Patient is currently lying in the bed. Still complains of nausea and unable to tolerate any solid diet. Patient was able to drink water. Episode of vomiting. Denies any hematemesis. No fever no chills. Denies any abdominal pain. Otherwise right lower extremity swelling and redness is improving. Wound care is being done. Patient remains on antibiotics of cefazolin and vancomycin was added due to worsening leukocytosis. CT of the abdomen pelvis showed gastric distention with contrast passes into the proximal and mid small bowel. There is suggested eccentric wall thickening of the proximal duodenum. Underlying mass is not excluded. Direct visualization is recommended. Correlate for gastroparesis. No CT evidence for complete bowel obstruction. Hepatomegaly. Colonic diverticulosis. Cholelithiasis. Trace left and small right pleural effusions with partial atelectasis of the right lower lobe. Sequela of prior granulomatous disease. Lab data showed WBC 19.15 hemoglobin 11.7 and platelets 247 sodium 143 potassium 3.7 chloride 105 bicarb is 24 BUN 24.7 and creatinine 1.49 blood sugar 53 and calcium 8.2. 09/22/2023 Patient is lying in the bed. Awake alert but still complains of nausea and unable to take any oral intake. No diarrhea. No complaints of abdominal pain. Did not have bowel movement. Patient feels abdominal is distended/bloated. No complaints of chest pain or shortness of breath. Patient is currently on 2 L oxygen via nasal cannula. Laboratory data showed WBC remains the same at 19.3 hemoglobin 13.3 and platelets 255. Other laboratory data reviewed. Blood cultures have been negative so far. Patient antibiotics remains on antibiotics vancomycin and Unasyn. 09/23/2023 Patient is lying in the bed. Awake alert and oriented x 3. Patient states that he feels better today. Abdomen is less distended. Also still complaining of some right upper quadrant abdominal pain. No complaints of chest pain or shortness of breath. Encouraged with incentive spirometry. Patient denies any bowel meant last couple of days. Able to pass flatus. No fever or chills Otherwise right lower extremity wound is wrapped. No discharge noted. Continued on IV antibiotics Unasyn and vancomycin. ID is on board. X-ray of the abdomen was ordered to rule out obstruction. Laboratory data showed WBC improved to 15.2 hemoglobin 11.4 and platelets 243 sodium 136 potassium 3.0 chloride 104 bicarb is 25 BUN 13 creatinine 1.27 and calcium 7.7 total bili 2.4 AST 115 ALT 48 alk phos 138 and CRP 24.5. 09/24/2023 Patient is evaluated today on the medical floor in follow up. He is alert x 3 today. Having complaints of abdominal discomfort and left quadrant pain. Having multiple episodes of lose stool today. He had an abdominal xray completed revealing overall stable appearance of a dilated stomach, further discussed on recent CT exam. Fecal material and gas are demonstrated throughout the colon and rectum. Blood work today reveals white blood cell count of 13.75, hgb 11.9, sodium of 136, BUN 30, creatinine 1.24. Patient has been continued on oral lasix and received an additional dose of IV lasix yesterday. He was given a fluid bolus and normal saline infusion due to low blood pressures. We will stop both lasix and fluids at this time and repeat blood work tomorrow. 09/25/2023 Patient is evaluated in follow-up in the medical floor he is more awake and alert. Patient does report improvement in his abdominal discomfort and he is less distended today. He has had 3 large soft bowel movement overnight. His blood work from today is unavailable at this time and has not yet been drawn. Patient was 114/70. He continues on 2 L of oxygen via nasal cannula. Patient was evaluated by GI services today. Current medications reviewed. Review of Systems Constitutional: Denied any fatigue denied any fever. Cardio vascular: denied any chest pain, palpitations Gastrointestinal: denied any nausea, vomiting, diarrhea. Reports abdominal pain. Pulmonary: Denied any shortness of breath cough Neurologic denied any new focal deficits All inpatient medications were reviewed and appropriate changes in these m edications as dictated in the interval history and assessment and plan PHYSICAL EXAMINATION: GENERAL: The patient is alert and oriented x3, not in any acute distress. Well developed, well nourished. HEENT: Pupils are round and equally reacting to light. EOMI. No scleral icterus. No conjunctival pallor. Normocephalic, atraumatic. No pharyngeal erythema. No thyromegaly. CARDIOVASCULAR: S1 and S2 present. No murmurs, rubs, or gallops. PULMONARY: Chest is clear to auscultation, no wheezing or crackles. ABDOMEN: Soft, nontender, distended, tympanic over the left quadrant. normoactive bowel sounds. No palpable organomegaly. MUSCULOSKELETAL: No joint swelling or deformity. EXTREMITIES: No cyanosis, clubbing, or pedal edema. NEUROLOGICAL: Gross neurological examination did not reveal any focal deficits. SKIN: No rashes. Assessment Right lower extremity cellulitis with ruptured blister and superficial ulceration Sepsis secondary to above Eccentric wall thickening of the proximal duodenum. Underlying mass is not excluded. Constipation Elevated liver enzymes Nausea vomiting abdominal pain and diarrhea. Improved. Macrocytic anemia will check vitamin B12 and folate level. Severe hypokalemia. Replaced. Chronic bilateral lower extremity swelling. Paroxysmal atrial fibrillation. Patient is currently in sinus rhythm. Not on anticoagulation. Elevated troponin level Elevated bilirubin level Increased pain to the left shoulder with previous dislocation and reduction back in 2019. Hypertension Hyperlipidemia Pilonidal cyst hx and patient has Stage II pressure injury right buttock, POA. Chronic back pain Morbid obesity BMI 44.8 GI and DVT prophylaxis with PPI and Lovenox subcu. Plan: Patient will be continued on antibiotics in the form of Unasyn and vancomycin. Patient lost IV line. Antibiotics changed to Augmentin. Follow-up wound cultures and blood cultures. Due to abnormal CT findings GI was consulted for possible EGD and scheduled to undergo endoscopy tomorrow Check an xray of the left shoulder due to increased pain. Symptomatic management for nausea and vomiting and encourage oral intake. CT of the abdomen pelvis report as above. 2D echocardiogram showed LVH with mildly reduced LV systolic function. RV enlargement. Cardiology recommends medical management.. Hold lasix and fluids. Repeat blood work in the AM. Continue with daily monitoring and follow-up closely. Prognosis is guarded. The impression and plan of care has been dictated by Macey Collins, Nurse Practitioner as directed. Dr. Julieta MD I have performed a history and physical examination and medical decision making of this patient, discussed the same with the dictator, and agree with the dictators assessment and plan as written, documented as a scribe. Based on total visit time, I have performed more than 50% of this visit. Objective - Vital Signs Vital signs: Vital Signs Temp 98.7 F 09/25/23 07:55 Pulse 77 09/25/23 08:27 Resp 19 09/25/23 07:55 BP 114/70 09/25/23 08:27 Pulse Ox 93 L 09/25/23 08:31 FiO2 Intake & Output 09/24/23 09/25/23 09/25/23 18:59 06:59 18:59 Intake Total 1700 Output Total 200 1100 Balance 1500 -1100 Intake: Intake, IV Titration 750 Amount Sodium Chloride 0.9% 1, 500 000 ml @ 50 mls/hr IV . Q20H SOO Rx#:[id number] Sodium Chloride 0.9% 250 250 ml @ 999 mls/hr IV .Q16M SOO Rx#:[id number] Oral 950 Output: Urine 200 1100 Other: Voiding Method External Catheter External Catheter External Catheter # Bowel Movements 1 1 - Labs CBC & Chem 7: 09/24/23 08:16 09/24/23 08:16 Assessment and Plan Time with Patient: Less than 30
[2023-09-25 16:17] LABS: Basophils # (A) 0.1 k/uL (0-0.2); Basophils % (A) 1 %; Eosinophils # (A) 0.2 k/uL (0-0.7); Eosinophils % (A) 1 %; HCT 44.9 % (39.0-53.0); HGB 14.6 gm/dL (13.0-17.5); Lymphocytes # (A) 1.2 k/uL (1.0-4.8); Lymphocytes % (A) 8 %; MCH 33.4 pg (25.0-35.0); MCHC 32.6 g/dL (31.0-37.0); MCV 102.3 fL (80.0-100.0); Macrocytosis Slight; Mean Platelet Volume 8.3; Monocytes # (A) 0.9 k/uL (0-1.0); Monocytes % (A) 6 %; Neutrophils # (A) 12.4 k/uL (1.3-7.7); Neutrophils % (A) 83 %; Platelet Count 283 k/uL (150-450); Poikilocytosis Slight; RBC 4.39 m/uL (4.30-5.90); RDW 13.9 % (11.5-15.5); WBC 14.9 k/uL (3.8-10.6)
--- NOTE | 2023-09-25 17:05 | XR ---
EXAMINATION TYPE: XR shoulder complete LT DATE OF EXAM: 09/25/2023 COMPARISON: 05/20/2019 HISTORY: Pain TECHNIQUE: Shoulder examined in 3 projections with multiple apparatus. FINDINGS: The humeral head articulates with the glenoid. The acromio-clavicular junction is normal. No acute fractures or dislocations are evident. A follow up study can be performed 7-10 days from acute trauma for continued pain. MRI can be perfor med if soft tissue evaluation would be of benefit. IMPRESSION: 1. No acute osseous shoulder abnormality.
[2023-09-26] MEDS: VANCOMYCIN 125 MG CAPSULE PO SCH (00:10)
[2023-09-26 11:15] LABS: African American GFR (CKD) 70 (>60 ml/min/1.73 sqM); Anion Gap 5 mmol/L; Blood Urea Nitrogen 22 mg/dL (9-20); Calcium 7.8 mg/dL (8.4-10.2); Carbon Dioxide 30 mmol/L (22-30); Chloride 103 mmol/L (98-107); Glucose 148 mg/dL (74-99); Non-African American GFR(CKD) 60 (>60 ml/min/1.73 sqM); Potassium 3.9 mmol/L (3.5-5.1); Sodium 138 mmol/L (137-145)
--- NOTE | 2023-09-26 12:42 | P.PN ---
Subjective Progress Note Date: 09/26/23 Patient is a 73-year-old male with a past medical history of atrial fibrillation not on anticoagulation, hypertension, hyperlipidemia, chronic back pain and morbid obesity with a BMI of 44.8 and also chronic bilateral lower extremity swelling presents to ER with complaints of worsening right lower extremity swelling and ruptured blister along with redness and increased pain. Patient has been having worsening swelling for the past 2 weeks. Patient is currently living by himself and his girlfriend is out of town for the past 2 weeks. Patient was unable to get out of bed and also felt very weak, could not come to hospital.. Patient states that he had prior history of leg cellulitis 2 years ago. Patient was seen by his physician 4 days arthritis and was recommended right knee brace. Patient states that he has been having increased right leg swelling since then. On admission patient was febrile with Tmax 102 F and blood pressure 93/55 pulse 102 and respiration 94% on 3 L oxygen via nasal cannula. Patient take Lasix 40 mg twice daily at home. Laboratory data showed WBC 16.7 hemoglobin 14.6 and platelets 272 Sodium 137 potassium 2.9 chloride 101 bicarb is 26 BUN 21 and creatinine 1.25, total bilirubin 4.0 liver enzymes are not elevated. Troponin 0.052 and proBNP 1420. Right lower extremity duplex scan showed no evidence of DVT. EKG showed sinus tachycardia. 09/19/2023 Patient is lying in the bed. Awake alert and oriented. Right lower extremity is currently Kennedy wrapped. Swelling is improving. Patient has been afebrile. No nausea or vomiting. Patient has very minimal oral intake otherwise. Cultures have been negative. Patient is being continued on antibiotics at home cefazolin. ID is on board. Lab data showed WBC 13.4 hemoglobin 10.3 and platelets 158 sodium 142 potassium 3.3 chloride 108 bicarb is 28.9 BUN 20.3 and creatinine 1.8 and blood sugar 181 and calcium 7.8. Liver enzymes showed AST went up to 117 ALT 58 alk phos 69 albumin 2.5. Urinalysis showed 2+ protein trace glucose trace ketones and WBCs 3. 09/20/2023 Patient is lying in the bed. Awake alert and oriented. Requiring 2 L oxygen via nasal cannula. No complaints of chest pain or shortness of breath. Otherwise patient is complaining of nausea and vomiting and also diarrhea with abdominal distention. Otherwise right lower extremity swelling and redness is improving. Currently on IV antibiotic in the home with Unasyn. ID is on board. CT of the abdomen pelvis was ordered. Laboratory data showed WBC 14.9 hemoglobin 11.9 platelets 207 Sodium 141 potassium 3.2 chloride 110 bicarb is 26 BUN 13 creatinine 1.33 and blood sugar 133. Calcium 8.3. 2D echocardiogram showed LVH with mildly reduced LV systolic function. RV enlargement. 09/21/2023 Patient is currently lying in the bed. Still complains of nausea and unable to tolerate any solid diet. Patient was able to drink water. Episode of vomiting. Denies any hematemesis. No fever no chills. Denies any abdominal pain. Otherwise right lower extremity swelling and redness is improving. Wound care is being done. Patient remains on antibiotics of cefazolin and vancomycin was added due to worsening leukocytosis. CT of the abdomen pelvis showed gastric distention with contrast passes into the proximal and mid small bowel. There is suggested eccentric wall thickening of the proximal duodenum. Underlying mass is not excluded. Direct visualization is recommended. Correlate for gastroparesis. No CT evidence for complete bowel obstruction. Hepatomegaly. Colonic diverticulosis. Cholelithiasis. Trace left and small right pleural effusions with partial atelectasis of the right lower lobe. Sequela of prior granulomatous disease. Lab data showed WBC 19.15 hemoglobin 11.7 and platelets 247 sodium 143 potassium 3.7 chloride 105 bicarb is 24 BUN 24.7 and creatinine 1.49 blood sugar 53 and calcium 8.2. 09/22/2023 Patient is lying in the bed. Awake alert but still complains of nausea and unable to take any oral intake. No diarrhea. No complaints of abdominal pain. Did not have bowel movement. Patient feels abdominal is distended/bloated. No complaints of chest pain or shortness of breath. Patient is currently on 2 L oxygen via nasal cannula. Laboratory data showed WBC remains the same at 19.3 hemoglobin 13.3 and platelets 255. Other laboratory data reviewed. Blood cultures have been negative so far. Patient antibiotics remains on antibiotics vancomycin and Unasyn. 09/23/2023 Patient is lying in the bed. Awake alert and oriented x 3. Patient states that he feels better today. Abdomen is less distended. Also still complaining of some right upper quadrant abdominal pain. No complaints of chest pain or shortness of breath. Encouraged with incentive spirometry. Patient denies any bowel meant last couple of days. Able to pass flatus. No fever or chills Otherwise right lower extremity wound is wrapped. No discharge noted. Continued on IV antibiotics Unasyn and vancomycin. ID is on board. X-ray of the abdomen was ordered to rule out obstruction. Laboratory data showed WBC improved to 15.2 hemoglobin 11.4 and platelets 243 sodium 136 potassium 3.0 chloride 104 bicarb is 25 BUN 13 creatinine 1.27 and calcium 7.7 total bili 2.4 AST 115 ALT 48 alk phos 138 and CRP 24.5. 09/24/2023 Patient is evaluated today on the medical floor in follow up. He is alert x 3 today. Having complaints of abdominal discomfort and left quadrant pain. Having multiple episodes of lose stool today. He had an abdominal xray completed revealing overall stable appearance of a dilated stomach, further discussed on recent CT exam. Fecal material and gas are demonstrated throughout the colon and rectum. Blood work today reveals white blood cell count of 13.75, hgb 11.9, sodium of 136, BUN 30, creatinine 1.24. Patient has been continued on oral lasix and received an additional dose of IV lasix yesterday. He was given a fluid bolus and normal saline infusion due to low blood pressures. We will stop both lasix and fluids at this time and repeat blood work tomorrow. 09/25/2023 Patient is evaluated in follow-up in the medical floor he is more awake and alert. Patient does report improvement in his abdominal discomfort and he is less distended today. He has had 3 large soft bowel movement overnight. His blood work from today is unavailable at this time and has not yet been drawn. Patient was 114/70. He continues on 2 L of oxygen via nasal cannula. Patient was evaluated by GI services today. 09/26/2023 Patient is evaluated today in follow-up on the medical floor. He continues to report left lower quadrant abdominal pain however has decreased in intensity. Patient has had multiple bowel movements overnight and a C. difficile was ordered and checked and he was found to be positive. He has been started on oral vancomycin 250 mg 4 times a day with ID following closely. Additionally patient is continued on oral Augmentin for the right lower extremity cellulitis and chronic wound. We checked a shoulder x-ray on the left side shows no acute osseous abnormality. His sodium is 138, potassium 3.9, BUN 22, creatinine 1.18, calcium 7.8. Patient was scheduled to undergo EGD today which is now placed on hold. GI is following. Current medications reviewed. Review of Systems Constitutional: Denied any fatigue denied any fever. Cardio vascular: denied any chest pain, palpitations Gastrointestinal: denied any nausea, vomiting, diarrhea. Reports abdominal pain. Pulmonary: Denied any shortness of breath cough Neurologic denied any new focal deficits All inpatient medications were reviewed and appropriate changes in these medications as dictated in the interval history and assessment and plan PHYSICAL EXAMINATION: GENERAL: The patient is alert and oriented x3, not in any acute distress. Well developed, well nourished. HEENT: Pupils are round and equally reacting to light. EOMI. No scleral icterus. No conjunctival pallor. Normocephalic, atraumatic. No pharyngeal erythema. No thyromegaly. CARDIOVASCULAR: S1 and S2 present. No murmurs, rubs, or gallops. PULMONARY: Chest is clear to auscultation, no wheezing or crackles. ABDOMEN: Soft, nontender, distended, tympanic over the left quadrant. normoactive bowel sounds. No palpable organomegaly. MUSCULOSKELETAL: No joint swelling or deformity. EXTREMITIES: No cyanosis, clubbing, or pedal edema. NEUROLOGICAL: Gross neurological examination did not reveal any focal deficits. SKIN: No rashes. Assessment Right lower extremity cellulitis with ruptured blister and superficial ulceration Sepsis secondary to above Eccentric wall thickening of the proximal duodenum. Underlying mass is not excluded. C. difficile colitis patient was having multiple bowel movements which then stopped and now started again due to the bowel prep. Elevated liver enzymes Nausea vomiting abdominal pain and diarrhea. Improved. Macrocytic anemia will check vitamin B12 and folate level. Severe hypokalemia. Replaced. Chronic bilateral lower extremity swelling. Paroxysmal atrial fibrillation. Patient is currently in sinus rhythm. Not on anticoagulation. Elevated troponin level Elevated bilirubin level Increased pain to the left shoulder with previous dislocation and reduction back in 2019. Hypertension Hyperlipidemia Pilonidal cyst hx and patient has Stage II pressure injury right buttock, POA. Chronic back pain Morbid obesity BMI 44.8 GI and DVT prophylaxis with PPI and Lovenox subcu. Plan: Patient will be continued on antibiotics in the form of Unasyn and vancomycin. Patient lost IV line. Antibiotics changed to Augmentin. Blood cultures have been negative at this time Due to abnormal CT findings GI was consulted for possible EGD and scheduled to undergo endoscopy is now placed on hold due to positive C.Dif Patient has been started no oral vancomycin 250 mg QID Symptomatic management for nausea and vomiting and encourage oral intake. CT of the abdomen pelvis report as above. 2D echocardiogram showed LVH with mildly reduced LV systolic function. RV enlargement. Cardiology recommends medical management.. Resume oral lasix Continue with daily monitoring and follow-up closely. Prognosis is guarded. BMP magnesium in the AM. Discharge to [facility] pending insurance authorization possibly next 24-48 hours The impression and plan of care has been dictated by Macey Collins Nurse Practitioner as directed. Dr. Julieta MD I have performed a history and physical examination and medical decision making of this patient, discussed the same with the dictator, and agree with the dictators assessment and plan as written, documented as a scribe. Based on total visit time, I have performed more than 50% of this visit. Objective - Vital Signs Vital signs: Vital Signs Temp 98.2 F 09/26/23 07:26 Pulse 77 09/26/23 07:26 Resp 18 09/26/23 07:26 BP 127/74 09/26/23 07:26 Pulse Ox 92 L 09/26/23 07:26 FiO2 Intake & Output 09/25/23 09/26/23 09/26/23 18:59 06:59 18:59 Output Total 800 950 Balance -800 -950 Output: Urine 800 950 Other: Voiding Method External Catheter External Catheter # Bowel Movements 1 - Labs CBC & Chem 7: 09/25/23 15:11 09/26/23 10:23 Labs: Abnormal Lab Results - Last 24 Hours (Table) 09/25/23 09/25/23 09/25/23 Range/Units 15:11 15:11 16:30 WBC 14.9 H (3.8-10.6) k/uL MCV 102.3 H (80.0-100.0) fL Neutrophils # 12.4 H (1.3-7.7) k/uL BUN (9-20) mg/dL Glucose (74-99) mg/dL Calcium (8.4-10.2) mg/dL Vitamin B12 1876.0 H (200.0-944.0) pg/mL C. difficile (EIA) Intrp Positive A (Negative) 09/26/23 Range/Units 10:23 WBC (3.8-10.6) k/uL MCV (80.0-100.0) fL Neutrophils # (1.3-7.7) k/uL BUN 22 H (9-20) mg/dL Glucose 148 H (74-99) mg/dL Calcium 7.8 L (8.4-10.2) mg/dL Vitamin B12 (200.0-944.0) pg/mL C. difficile (EIA) Intrp (Negative) Assessment and Plan Time with Patient: Less than 30
[2023-09-26] MEDS: FUROSEMIDE 40 MG TAB PO SCH (17:02)
[2023-09-27 10:46] LABS: BUN/Creat Ratio 15.25 Ratio (12.00-20.00); Blood Urea Nitrogen 18.3 mg/dL (9.0-27.0); Glucose 115 mg/dL (70-110)
[2023-09-27 10:47] LABS: Calcium 7.7 mg/dL (8.7-10.3); Carbon Dioxide 24.5 mmol/L (21.6-31.8); Chloride 100 mmol/L (96-109); Potassium 3.3 mmol/L (3.5-5.5); Sodium 139 mmol/L (135-145)
[2023-09-27 10:50] LABS: HCT 38.3 % (39.6-50.0); HGB 12.4 g/dL (13.0-17.0); MCH 32.5 pg (27.0-32.0); MCHC 32.4 g/dL (32.0-37.0); MCV 100.3 FL (80.0-97.0); Mean Platelet Volume 10.3 FL (9.5-12.2); NRBC Per 100 WBC 0 X 10*3/uL (0.00-0.01); Platelet Count 240 X 10*3/uL (140-440); RBC 3.82 X 10*6/uL (4.40-5.60); RDW 14.3 % (11.5-14.5); WBC 15.99 X 10*3/uL (4.50-10.00)
[2023-09-27 10:51] LABS: Basophils # (A) 0.09 X 10*3/uL (0.00-0.10); Basophils % (A) 0.6 %; Eosinophils % (A) 0.6 %; Lymphocytes # (A) 1.64 X 10*3/uL (0.90-5.00); Lymphocytes % (A) 10.3 %; Monocytes # (A) 0.73 X 10*3/uL (0.20-1.00); Monocytes % (A) 4.6 %; Neutrophils # (A) 13.12 X 10*3/uL (1.80-7.70)
--- NOTE | 2023-09-27 16:56 | P.PN ---
Subjective Progress Note Date: 09/25/23 Principal diagnosis: Reason for follow-up is right lower extremity wound and cellulitis Patient is a 73-year-old male with a past medical history significant for hypertension hyperlipidemia atrial fibrillation chronic back pain patient presented to hospital with increasing swelling redness to the right leg with some blister formation along with nausea vomiting ID consulted concerning for the right lower extremity cellulitis. On today's evaluation that is 09/25/2023, Patient is afebrile patient is currently on 2 L nasal cannula oxygen and denies having any shortness of breath, the patient denies any chest pain or any worsening cough, the patient denies any nausea vomiting did not have any abdominal pain did have some diarrhea, still complains of burning pain to the right leg wound Patient white count is slightly up to 14.9 Objective - Vital Signs Vital signs: Vital Signs Temp 98.7 F 09/25/23 07:55 Pulse 77 09/25/23 08:27 Resp 19 09/25/23 07:55 BP 114/70 09/25/23 08:27 Pulse Ox 93 L 09/25/23 08:31 FiO2 Intake & Output 09/24/23 09/25/23 09/25/23 18:59 06:59 18:59 Intake Total 1700 Output Total 200 1100 Balance 1500 -1100 Intake: Intake, IV Titration 750 Amount Sodium Chloride 0.9% 1, 500 000 ml @ 50 mls/hr IV . Q20H SOO Rx#:[id number] Sodium Chloride 0.9% 250 250 ml @ 999 mls/hr IV .Q16M SOO Rx#:[id number] Oral 950 Output: Urine 200 1100 Other: Voiding Method External Catheter External Catheter External Catheter # Bowel Movements 1 1 - Exam GENERAL DESCRIPTION: An elderly male lying in bed in no distress RESPIRATORY SYSTEM: Unlabored breathing , decreased breath sounds at bases HEART: S1 S2 regular rate and rhythm , ABDOMEN: Soft , no tenderness EXTREMITIES: Right lower extremity wound currently dressed - Labs CBC & Chem 7: 09/27/23 06:28 09/27/23 06:28 Assessment and Plan (1) Sepsis Current Visit: Yes Status: Acute Code(s): A41.9 - SEPSIS, UNSPECIFIED ORGANISM SNOMED Code(s): 55269888 (2) Leg wound, right Current Visit: Yes Status: Acute Code(s): S81.801A - UNSPECIFIED OPEN WOUND, RIGHT LOWER LEG, INITIAL ENCOUNTER SNOMED Code(s): 82805249775988957 (3) Cellulitis of right leg Current Visit: Yes Status: Acute Code(s): L03.115 - CELLULITIS OF RIGHT LOWER LIMB SNOMED Code(s): 86066766510485179 Plan: 1patient presented to hospital with sepsis in this patient who did have a diffuse swelling redness to bilateral extremity some superficial ulceration probably blister in this patient noted evidence of fluid overload likely represe nting a streptococcal cellulitis, clinically not behaving as MRSA or gram- negative infection. 2patient to continue with Aquacel silver dressing to the open wound followed by Kennedy wrap from just above the toe to below the knee change daily. 3patient did have CT of abdominal pelvis some thickening of the duodenum, radiology recommended direct visualization GI should be consulted for EGD for which surgery has been consulted. 4patient did have improvement to the right lower extremity cellulitis and the white count is trending down continue with the Augmentin 5patient did have diarrhea we will check a stool for C. difficile and treat if positive encouraged to increase his probiotic intake Dictation was produced using [employer] dictation software. please excuse any grammatical, word or spelling errors. Time with Patient: Less than 30
--- NOTE | 2023-09-27 16:57 | P.PN ---
Subjective Progress Note Date: 09/27/23 Principal diagnosis: Reason for follow-up is right lower extremity wound and cellulitis Patient is a 73-year-old male with a past medical history significant for hypertension hyperlipidemia atrial fibrillation chronic back pain patient presented to hospital with increasing swelling redness to the right leg with some blister formation along with nausea vomiting ID consulted concerning for the right lower extremity cellulitis. On today's evaluation that is 09/27/2023, Patient is afebrile this morning and denies any chills, patient mention breathing comfortably and is currently on 2 L nasal oxygen, patient denies any chest pain occasional cough patient denies any abdominal pain, no nausea no vomiting, mention did have 1 bowel movement today and also mention right leg oral discomfort is improving patient seem to be slightly upset regarding waiting for endoscopy and has been kept n.p.o. and also complaining about the blood draw. Patient white count slightly up to 15.9, creatinine is 1.2 Objective - Vital Signs Vital signs: Vital Signs Temp 98.4 F 09/27/23 07:21 Pulse 79 09/27/23 07:21 Resp 18 09/27/23 07:21 BP 124/73 09/27/23 07:21 Pulse Ox 92 L 09/27/23 07:21 FiO2 Intake & Output 09/26/23 09/27/23 09/27/23 18:59 06:59 18:59 Output Total 900 Balance -900 Output: Urine 900 Other: Voiding Method External Catheter External Catheter # Voids 800 - Exam GENERAL DESCRIPTION: An elderly male lying in bed in no distress RESPIRATORY SYSTEM: Unlabored breathing , decreased breath sounds at bases HEART: S1 S2 regular rate and rhythm , ABDOMEN: Soft , no tenderness EXTREMITIES: Right lower extremity wound currently dressed - Labs CBC & Chem 7: 09/27/23 06:28 09/27/23 06:28 Labs: Abnormal Lab Results - Last 24 Hours (Table) 09/27/23 09/27/23 Range/Units 06:28 06:28 WBC 15.99 H (4.50-10.00) X 10*3/uL RBC 3.82 L (4.40-5.60) X 10*6/uL Hgb 12.4 L (13.0-17.0) g/dL Hct 38.3 L (39.6-50.0) % MCV 100.3 H (80.0-97.0) FL MCH 32.5 H (27.0-32.0) pg Immature Gran # 0.31 H (0.00-0.04) X 10*3/uL Neutrophils # 13.12 H (1.80-7.70) X 10*3/uL Potassium 3.3 L (3.5-5.5) mmol/L Anion Gap 14.50 H (4.00-12.00) mmol/L Glucose 115 H (70-110) mg/dL Calcium 7.7 L (8.7-10.3) mg/dL Microbiology - Last 24 Hours (Table) 09/25/23 16:30 Stool Culture - Preliminary Stool Assessment and Plan (1) Sepsis Current Visit: Yes Status: Acute Code(s): A41.9 - SEPSIS, UNSPECIFIED ORGANISM SNOMED Code(s): 62529384 (2) Leg wound, right Current Visit: Yes Status: Acute Code(s): S81.801A - UNSPECIFIED OPEN WOUND, RIGHT LOWER LEG, INITIAL ENCOUNTER SNOMED Code(s): 74599227154643472 (3) Cellulitis of right leg Current Visit: Yes Status: Acute Code(s): L03.115 - CELLULITIS OF RIGHT LOWER LIMB SNOMED Code(s): 27360983850961078 Plan: 1patient presented to hospital with sepsis in this patient who did have a di ffuse swelling redness to bilateral extremity some superficial ulceration probably blister in this patient noted evidence of fluid overload likely representing a streptococcal cellulitis, clinically not behaving as MRSA or gram-negative infection. 2patient to continue with Aquacel silver dressing to the open wound followed by Kennedy wrap from just above the toe to below the knee change daily. 3patient did have CT of abdominal pelvis some thickening of the duodenum, radiology recommended direct visualization GI should be consulted for EGD for which surgery has been consulted. 4patient did have improvement to the right lower extremity cellulitis patient has received adequate IV and oral and by therapy for his right lower extremity cellulitis keeping in mind his CT colitis we will go ahead and discontinue Augmentin 5patient did have diarrhea, stool for C. difficile came back positive patient to continue with oral vancomycin encouraged to increase his probiotic and yogurt intake Dictation was produced using [employer] dictation software. please excuse any grammatical, word or spelling errors. Time with Patient: Less than 30
--- NOTE | 2023-09-27 16:57 | P.PN ---
Subjective Progress Note Date: 09/26/23 Principal diagnosis: Reason for follow-up is right lower extremity wound and cellulitis Patient is a 73-year-old male with a past medical history significant for hypertension hyperlipidemia atrial fibrillation chronic back pain patient presented to hospital with increasing swelling redness to the right leg with some blister formation along with nausea vomiting ID consulted concerning for the right lower extremity cellulitis. On today's evaluation that is 09/26/2023, patient has been afebrile, patient is breathing comfortably and is currently on 2 L nasal cannula oxygen patient denies having any significant cough no chest pain shortness of breath, patient denies nausea vomiting did have some diarrhea and abdominal distention denies any worsening pain to right leg wound. No new lab has been obtained today patient did have a stool for C. difficile positive that was sent last night Objective - Vital Signs Vital signs: Vital Signs Temp 98.2 F 09/26/23 07:26 Pulse 77 09/26/23 08:50 Resp 18 09/26/23 08:50 BP 127/74 09/26/23 07:26 Pulse Ox 92 L 09/26/23 07:26 FiO2 Intake & Output 09/25/23 09/26/23 09/26/23 18:59 06:59 18:59 Output Total 800 950 Balance -800 -950 Output: Urine 800 950 Other: Voiding Method External Catheter External Catheter External Catheter # Bowel Movements 1 - Exam GENERAL DESCRIPTION: An elderly male lying in bed in no distress RESPIRATORY SYSTEM: Unlabored breathing , decreased breath sounds at bases HEART: S1 S2 regular rate and rhythm , ABDOMEN: Soft , no tenderness EXTREMITIES: Right lower extremity wound currently dressed - Labs CBC & Chem 7: 09/27/23 06:28 09/27/23 06:28 Labs: Abnormal Lab Results - Last 24 Hours (Table) 09/25/23 09/25/23 09/25/23 Range/Units 15:11 15:11 16:30 WBC 14.9 H (3.8-10.6) k/uL MCV 102.3 H (80.0-100.0) fL Neutrophils # 12.4 H (1.3-7.7) k/uL BUN (9-20) mg/dL Glucose (74-99) mg/dL Calcium (8.4-10.2) mg/dL Vitamin B12 1876.0 H (200.0-944.0) pg/mL C. difficile (EIA) Intrp Positive A (Negative) 09/26/23 Range/Units 10:23 WBC (3.8-10.6) k/uL MCV (80.0-100.0) fL Neutrophils # (1.3-7.7) k/uL BUN 22 H (9-20) mg/dL Glucose 148 H (74-99) mg/dL Calcium 7.8 L (8.4-10.2) mg/dL Vitamin B12 (200.0-944.0) pg/mL C. difficile (EIA) Intrp (Negative) Assessment and Plan (1) Sepsis Current Visit: Yes Status: Acute Code(s): A41.9 - SEPSIS, UNSPECIFIED ORGANISM SNOMED Code(s): 98781201 (2) Leg wound, right Current Visit: Yes Status: Acute Code(s): S81.801A - UNSPECIFIED OPEN WOUND, RIGHT LOWER LEG, INITIAL ENCOUNTER SNOMED Code(s): 34971666628526766 (3) Cellulitis of right leg Current Visit: Yes Status: Acute Code(s): L03.115 - CELLULITIS OF RIGHT LOWER LIMB SNOMED Code(s): 01081867275162197 (4) C. difficile colitis Current Visit: Yes Status: Acute Code(s): A04.72 - ENTEROCOLITIS D/T CLOSTRIDIUM DIFFICILE, NOT SPCF RECUR SNOMED Code(s): 500117419 Plan: 1patient presented to hospital with sepsis in this patient who did have a diffuse swelling redness to bilateral extremity some superficial ulceration probably blister in this patient noted evidence of fluid overload likely representing a streptococcal cellulitis, clinically not behaving as MRSA or gram-negative infection. 2patient to continue with Aquacel silver dressing to the open wound followed by Kennedy wrap from just above the toe to below the knee change daily. 3patient did have CT of abdominal pelvis some thickening of the duodenum, radiology recommended direct visualization GI should be consulted for EGD for which surgery has been consulted. 4patient did have improvement to the right lower extremity cellulitis patient is currently treated with the Augmentin 5patient did have diarrhea, stool for C. difficile came back positive oral vancomycin has been added Dictation was produced using [employer] dictation software. please excuse any grammatical, word or spelling errors. Time with Patient: Less than 30
--- NOTE | 2023-09-27 17:40 | P.PN ---
Progress Note - Text Progress Note Date: 09/27/23 The patient was seen and examined today as a follow-up. He was scheduled for an upper endoscopy yesterday however patient had eaten prior to the procedure and it had to be canceled. Today patient denies any abdominal pain, nausea or vomiting. States that he is hungry that he had not eaten anything for 4 days however regular diet was ordered yesterday. Today he was scheduled for upper endoscopy again however this afternoon he he is refusing to undergo the upper endoscopy and states that he is hungry and he is mad at his nurse. Procedure discussed with patient and explained that he will have to be n.p.o. again after midnight and he is persistent that he is not going to proceed. Exam General appearance: The patient is alert, oriented, appears in no acute distress. Morbidly obese HET: Head is normocephalic and atraumatic. Conjunctiva pink. Sclera anicteric. Neck: Supple without lymphadenopathy. Abdomen: Soft, nontender, nondistended. Morbidly obese. Extremities: Normal skin color and turgor. No pedal edema Skin: No rashes, no jaundice Neurological: No focal deficits. Alert and oriented. Assessment and plan 1. Abnormal finding on CT scan 2. Diarrhea, resolved 3. Elevated LFTs 4. Morbid obesity 5. Diabetes mellitus 6. Cellulitis of right leg Plan 1. Continue symptomatic and supportive care 2. Continue Protonix 40 mg IV twice daily 3. Diet as tolerated, n.p.o. after midnight 4. Plan for upper endoscopy tomorrow. Recommend colonoscopy as outpatient. 5. Continue with rest of medical management per primary medical team Thank you for this consultation, further recommendations forthcoming following upper endoscopy. Dr. Heath Shrap I agree with the dictator's note, documented as a scribe by Sania Pineda.
--- NOTE | 2023-09-28 06:51 | P.PN ---
Subjective Progress Note Date: 09/27/23 Patient is a 73-year-old male with a past medical history of atrial fibrillation not on anticoagulation, hypertension, hyperlipidemia, chronic back pain and morbid obesity with a BMI of 44.8 and also chronic bilateral lower extremity swelling presents to ER with complaints of worsening right lower extremity swelling and ruptured blister along with redness and increased pain. Patient has been having worsening swelling for the past 2 weeks. Patient is currently living by himself and his girlfriend is out of town for the past 2 weeks. Patient was unable to get out of bed and also felt very weak, co uld not come to hospital.. Patient states that he had prior history of leg cellulitis 2 years ago. Patient was seen by his physician 4 days arthritis and was recommended right knee brace. Patient states that he has been having increased right leg swelling since then. On admission patient was febrile with Tmax 102 F and blood pressure 93/55 pulse 102 and respiration 94% on 3 L oxygen via nasal cannula. Patient take Lasix 40 mg twice daily at home. Laboratory data showed WBC 16.7 hemoglobin 14.6 and platelets 272 Sodium 137 potassium 2.9 chloride 101 bicarb is 26 BUN 21 and creatinine 1.25, t otal bilirubin 4.0 liver enzymes are not elevated. Troponin 0.052 and proBNP 1420. Right lower extremity duplex scan showed no evidence of DVT. EKG showed sinus tachycardia. 09/19/2023 Patient is lying in the bed. Awake alert and oriented. Right lower extremity is currently Kennedy wrapped. Swelling is improving. Patient has been afebrile. No nausea or vomiting. Patient has very minimal oral intake otherwise. Cultures have been negative. Patient is being continued on antibiotics at home cefazolin. ID is on board. Lab data showed WBC 13.4 hemoglobin 10.3 and platelets 158 sodium 142 potassium 3.3 chloride 108 bicarb is 28.9 BUN 20.3 and creatinine 1.8 and blood sugar 181 and calcium 7.8. Liver enzymes showed AST went up to 117 ALT 58 alk phos 69 albumin 2.5. Urinalysis showed 2+ protein trace glucose trace ketones and WBCs 3. 09/20/2023 Patient is lying in the bed. Awake alert and oriented. Requiring 2 L oxygen via nasal cannula. No complaints of chest pain or shortness of breath. Otherwise patient is complaining of nausea and vomiting and also diarrhea with abdominal distention. Otherwise right lower extremity swelling and redness is improving. Currently on IV antibiotic in the home with Unasyn. ID is on board. CT of the abdomen pelvis was ordered. Laboratory data showed WBC 14.9 hemoglobin 11.9 platelets 207 Sodium 141 potassium 3.2 chloride 110 bicarb is 26 BUN 13 creatinine 1.33 and blood sugar 133. Calcium 8.3. 2D echocardiogram showed LVH with mildly reduced LV systolic function. RV enlargement. 09/21/2023 Patient is currently lying in the bed. Still complains of nausea and unable to tolerate any solid diet. Patient was able to drink water. Episode of vomiting. Denies any hematemesis. No fever no chills. Denies any abdominal pain. Otherwise right lower extremity swelling and redness is improving. Wound care is being done. Patient remains on antibiotics of cefazolin and vancomycin was added due to worsening leukocytosis. CT of the abdomen pelvis showed gastric distention with contrast passes into the proximal and mid small bowel. There is suggested eccentric wall thickening of the proximal duodenum. Underlying mass is not excluded. Direct visualization is recommended. Correlate for gastroparesis. No CT evidence for complete bowel obstruction. Hepatomegaly. Colonic diverticulosis. Cholelithiasis. Trace left and small right pleural effusions with partial atelectasis of the right lower lobe. Sequela of prior granulomatous disease. Lab data showed WBC 19.15 hemoglobin 11.7 and platelets 247 sodium 143 potassium 3.7 chloride 105 bicarb is 24 BUN 24.7 and creatinine 1.49 blood sugar 53 and calcium 8.2. 09/22/2023 Patient is lying in the bed. Awake alert but still complains of nausea and unable to take any oral intake. No diarrhea. No complaints of abdominal pain. Did not have bowel movement. Patient feels abdominal is distended/bloated. No complaints of chest pain or shortness of breath. Patient is currently on 2 L oxygen via nasal cannula. Laboratory data showed WBC remains the same at 19.3 hemoglobin 13.3 and platelets 255. Other laboratory data reviewed. Blood cultures have been negative so far. Patient antibiotics remains on antibiotics vancomycin and Unasyn. 09/23/2023 Patient is lying in the bed. Awake alert and oriented x 3. Patient states that he feels better today. Abdomen is less distended. Also still complaining of some right upper quadrant abdominal pain. No complaints of chest pain or shortness of breath. Encouraged with incentive spirometry. Patient denies any bowel meant last couple of days. Able to pass flatus. No fever or chills Otherwise right lower extremity wound is wrapped. No discharge noted. Continued on IV antibiotics Unasyn and vancomycin. ID is on board. X-ray of the abdomen was ordered to rule out obstruction. Laboratory data showed WBC improved to 15.2 hemoglobin 11.4 and platelets 243 sodium 136 potassium 3.0 chloride 104 bicarb is 25 BUN 13 creatinine 1.27 and calcium 7.7 total bili 2.4 AST 115 ALT 48 alk phos 138 and CRP 24.5. 09/24/2023 Patient is evaluated today on the medical floor in follow up. He is alert x 3 today. Having complaints of abdominal discomfort and left quadrant pain. Having multiple episodes of lose stool today. He had an abdominal xray completed revealing overall stable appearance of a dilated stomach, further discussed on recent CT exam. Fecal material and gas are demonstrated throughout the colon and rectum. Blood work today reveals white blood cell count of 13.75, hgb 11.9, sodium of 136, BUN 30, creatinine 1.24. Patient has been continued on oral lasix and received an additional dose of IV lasix yesterday. He was given a fluid bolus and normal saline infusion due to low blood pressures. We will stop both l asix and fluids at this time and repeat blood work tomorrow. 09/25/2023 Patient is evaluated in follow-up in the medical floor he is more awake and alert. Patient does report improvement in his abdominal discomfort and he is less distended today. He has had 3 large soft bowel movement overnight. His blood work from today is unavailable at this time and has not yet been drawn. Patient was 114/70. He continues on 2 L of oxygen via nasal cannula. Patient was evaluated by GI services today. 09/26/2023 Patient is evaluated today in follow-up on the medical floor. He continues to report left lower quadrant abdominal pain however has decreased in intensity. Patient has had multiple bowel movements overnight and a C. difficile was ordered and checked and he was found to be positive. He has been started on oral vancomycin 250 mg 4 times a day with ID following closely. Additionally heike jean is continued on oral Augmentin for the right lower extremity cellulitis and chronic wound. We checked a shoulder x-ray on the left side shows no acute osseous abnormality. His sodium is 138, potassium 3.9, BUN 22, creatinine 1.18, calcium 7.8. Patient was scheduled to undergo EGD today which is now placed on hold. GI is following. 09/27/2023 Patient is seen in follow-up reports to feeling extremely agitated with multiple medical consultations following. Patient was n.p.o. as patient was scheduled to undergo EGD with GI. Patient refused reporting he cannot tolerate no diet and demanding to eat. Will attempt endoscopy on 09/28/2023. Patient continues with diarrhea maintained on C. difficile and reports continued abdominal pain. Patient with infectious disease following with lower extremity cellulitis along with C. difficile was continued on oral Augmentin and local wound care. Patient has been encouraged to increase activity as tolerated although has been refusing reporting he is not feeling well. Patient continuously makes comments about checking out of the hospital. Patient would be leaving AMA. Current medications reviewed. Review of Systems Constitutional: Denied any fatigue denied any fever. Cardio vascular: denied any chest pain, palpitations Gastrointestinal: denied any nausea, vomiting, diarrhea. Reports abdominal pain. Pulmonary: Denied any shortness of breath cough Neurologic denied any new focal deficits, generalized weakness All inpatient medications were reviewed and appropriate changes in these medications as dictated in the interval history and assessment and plan PHYSICAL EXAMINATION: GENERAL: The patient is alert and oriented x3, frustrated and agitated. Well developed, well nourished. Morbidly obese HEENT: Pupils are round and equally reacting to light. EOMI. No scleral icterus. No conjunctival pallor. Normocephalic, atraumatic. No pharyngeal erythema. No thyromegaly. CARDIOVASCULAR: S1 and S2 present. No murmurs, rubs, or gallops. PULMONARY: Chest is clear to auscultation, no wheezing or crackles. ABDOMEN: Soft, obese nontender, distended, tympanic over the left quadrant. normoactive bowel sounds. No palpable organomegaly. MUSCULOSKELETAL: No joint swelling or deformity. EXTREMITIES: No cyanosis, clubbing, or pedal edema. NEUROLOGICAL: Gross neurological examination did not reveal any focal deficits. Diffusely weak SKIN: No rashes. Assessment Right lower extremity cellulitis with ruptured blister and superficial ulceration Sepsis secondary to above Eccentric wall thickening of the proximal duodenum. Underlying mass is not excluded. C. difficile colitis patient was having multiple bowel movements which then stopped and now started again due to the bowel prep. Elevated liver enzymes Nausea vomiting abdominal pain and diarrhea. Improved. Macrocytic anemia will check vitamin B12 and folate level. Severe hypokalemia. Replaced. Chronic bilateral lower extremity swelling. Paroxysmal atrial fibrillation. Patient is currently in sinus rhythm. Not on anticoagulation. Elevated troponin level Elevated bilirubin level Increased pain to the left shoulder with previous dislocation and reduction back in 2019. No fractures noted Hypertension Hyperlipidemia Pilonidal cyst hx and patient has Stage II pressure injury right buttock, POA. Chronic back pain Morbid obesity BMI 44.8 GI and DVT prophylaxis with PPI and Lovenox subcu. Plan: Patient will be continued on antibiotics in the form of Unasyn and vancomycin. Patient lost IV line. Antibiotics changed to Augmentin. Infectious disease following Blood cultures have been negative at this time Due to abnormal CT findings GI was consulted for possible EGD and scheduled to undergo endoscopy is now placed on hold due to positive C.Dif. Patient was scheduled to undergo EGD today although refusing to remain n.p.o. with possible EGD on 09/28/2023 Patient has been started no oral vancomycin 250 mg QID Symptomatic management for nausea and vomiting and encourage oral intake. CT of the abdomen pelvis report as above. 2D echocardiogram showed LVH with mildly reduced LV systolic function. RV enlargement. Cardiology recommends medical management.. Resume oral lasix Continue with daily monitoring and follow-up closely. Prognosis is guarded. Discharge to [facility] pending insurance authorization possibly next 24-48 hours The impression and plan of care has been dictated by Rachele knapp, Nurse Practitioner as directed. Dr. Oz MD I have performed a history and physical examination and medical decision making of this patient, discussed the same with the dictator, and agree with the dictators assessment and plan as written, documented as a scribe. Based on total visit time, I have performed more than 50% of this visit. Objective - Vital Signs Vital signs: Vital Signs Temp 98.4 F 09/27/23 07:21 Pulse 79 09/27/23 07:21 Resp 18 09/27/23 07:21 BP 124/73 09/27/23 07:21 Pulse Ox 92 L 09/27/23 07:21 FiO2 Intake & Output 09/26/23 09/27/23 09/27/23 18:59 06:59 18:59 Output Total 900 Balance -900 Output: Urine 900 Other: Voiding Method External Catheter # Voids 800 - Labs CBC & Chem 7: 09/27/23 06:28 09/27/23 06:28 Labs: Abnormal Lab Results - Last 24 Hours (Table) 09/26/23 09/27/23 09/27/23 Range/Units 10:23 06:28 06:28 WBC 15.99 H (4.50-10.00) X 10*3/uL RBC 3.82 L (4.40-5.60) X 10*6/uL Hgb 12.4 L (13.0-17.0) g/dL Hct 38.3 L (39.6-50.0) % MCV 100.3 H (80.0-97.0) FL MCH 32.5 H (27.0-32.0) pg Immature Gran # 0.31 H (0.00-0.04) X 10*3/uL Neutrophils # 13.12 H (1.80-7.70) X 10*3/uL Potassium 3.3 L (3.5-5.5) mmol/L Anion Gap 14.50 H (4.00-12.00) mmol/L BUN 22 H (9-20) mg/dL Glucose 148 H 115 H (74-99) mg/dL Calcium 7.8 L 7.7 L (8.4-10.2) mg/dL Microbiology - Last 24 Hours (Table) 09/25/23 16:30 Stool Culture - Preliminary Stool
[2023-09-28] MEDS ORDERED: KETAMINE HCL IN 0.9 % NACL 50 MG/5 ML SYRINGE ONE (07:00)
[2023-09-28] MEDS: IV FLUID CONTINUATION 1,000 ML IV ONE (07:00)
[2023-09-28] MEDS ORDERED: GLYCOPYRROLATE 0.2 MG/ML 2 ML VIAL ONE (07:00)
[2023-09-28] MEDS ORDERED: MIDAZOLAM 2 MG/2 ML VIAL ONE (07:00)
[2023-09-28] MEDS ORDERED: PROPOFOL 10 MG/ML 20 ML VIAL IV ONE (07:00)
--- NOTE | 2023-09-28 07:47 | P.PCN ---
Date of Procedure: 09/28/23 Procedure(s) Performed: BRIEF HISTORY: Patient is a 69-year-old, pleasant, white male admitted to hospital with acute lower extremity cellulitis. He was complaining of abdominal pain associate with nausea vomiting. He had a CT of the abdomen pelvis done that revealed gastric distention with extrinsic compression of the proximal duodenum. He is hence scheduled for an upper endoscopy to evaluate for the. PROCEDURE PERFORMED: Esophagogastroduodenoscopy with biopsy. PREOPERATIVE DIAGNOSIS: Nausea vomiting and abnormal CAT scan showing gastric distention with extrinsic compression in the proximal duodenum. IV sedation per anesthesia. PROCEDURE: After informed consent was obtained, the patient was brought into the endoscopy unit. IV sedation was administered by Anesthesia under continuous monitoring. Initially the Olympus GIF-140 video endoscope was inserted into the mouth. Esophagus intubated without any difficulty. It was gradually advanced into the stomach and duodenum and carefully examined. There was large amount of retained liquid in the stomach and approximately 500 cc was aspirated. Some amount of solid food also was noted in the fundus of the stomach. I was not able to advance the scope beyond the bulb of the duodenum. Hence the scope was removed and a pediatric colonoscopy was then introduced into the mouth and esophagus intubated without any difficulty and was gradually advanced into the pylorus into all 4 parts of the duodenum which appeared entirely normal. There was no duodenal obstruction or extrinsic compression identified. The scope at this time was withdrawn to the stomach, adequately insufflated with air, and upon careful examination, mucosa of the antrum, and mild diffuse gastritis and biopsies were done from this area. Mucosa of the body, cardia and the fundus appeared normal. The scope was then withdrawn into the esophagus. The GE junction was located at 45 cm from the incisors. The esophagus appeared normal. There were no erosions or ulcerations seen and the patient tolerated the procedure well. IMPRESSION: 1. Significant amount of retained liquid and solid in the gastric fundus suggestive of diabetic gastroparesis. 2. Normal-appearing duodenum with no evidence of duodenal obstruction or extrinsic compression 3. No evidence of gastric outlet obstruction 4. Mild gastritis. RECOMMENDATIONS: The findings of this examination were discussed with the patient. Follow-up with the biopsy results. Advance diet as tolerated..
[2023-09-28] MEDS: HYDROcodone/APAP 7.5-325MG 1 EACH TAB PO PRN (08:58)
[2023-09-28 13:37] LABS: Magnesium 2.4 mg/dL (1.5-2.4)
[2023-09-28 13:45] LABS: BUN/Creat Ratio 18.24 Ratio (12.00-20.00); Calcium 8.9 mg/dL (8.7-10.3); Carbon Dioxide 16.6 mmol/L (21.6-31.8); Chloride 126 mmol/L (96-109); Glucose 147 mg/dL (70-110); Potassium 4.9 mmol/L (3.5-5.5); Sodium 167 mmol/L (135-145)
--- NOTE | 2023-09-28 15:29 | P.DS ---
Providers Date of admission: 09/17/23 18:02 Expected date of discharge: 09/28/23 Attending physician: Jules Agarwal Consults: 09/18/23 11:27 Consult Physician Routine Consulting Provider: Julieta Shields Consult Reason/Comments: right lower extremity cellulitis with open wounds Do you want consulting provider notified?: Yes 09/18/23 14:20 Consult Physician Routine Consulting Provider: Darvin Nj Consult Reason/Comments: Elevated troponin Do you want consulting provider notified?: Yes 09/22/23 16:11 Consult Physician Routine Consulting Provider: Valorie Sharp Consult Reason/Comments: Abnormal CT with thickening of the jejunum need for EGD Do you want consulting provider notified?: Yes Primary care physician: Evlira Wei Hospital Course: Final diagnosis Right lower extremity cellulitis with ruptured blister and superficial ulceration, present on admission Sepsis secondary to above Eccentric wall thickening of the proximal duodenum. Status post EGD showing m ild gastritis and normal-appearing duodenum with no evidence of dissection or extrinsic compression Significant retained liquid and solid in the gastric fundus suggestive of diabetic gastroparesis and EGD C. difficile colitis patient was having multiple bowel movements which then stopped and now started again due to the bowel prep. Elevated liver enzymes, trending down Nausea vomiting abdominal pain and diarrhea. Improved. Macrocytic anemia Severe hypokalemia. Replaced. Chronic bilateral lower extremity swelling. Paroxysmal atrial fibrillation. Patient is currently in sinus rhythm. Not on anticoagulation. Elevated troponin level Elevated bilirubin level Increased pain to the left shoulder with previous dislocation and reduction back in 2019. No fractures noted Hypertension Hyperlipidemia Pilonidal cyst hx and patient has Stage II pressure injury right buttock, POA. Chronic back pain Morbid obesity BMI 44.8 GI and DVT prophylaxis with PPI and Lovenox subcu. Discharge disposition Patient is being discharged in a stable condition with guarded prognosis to [facility]. Patient will continue on oral vancomycin 4 times daily for the next 10 days and outpatient follow-up with the wound care center and infectious disease. Patient to follow-up with primary care provider Dr. Wei in the outpatient setting. Patient also to follow-up with GI Dr. Sharp for biopsy results. Total time taken is greater than 35 minutes. Hospital course This is a 73-year-old male who was recently admitted with increased bilateral lower extremity worse on the right with concerns of cellulitis and a ruptured blister with superficial ulcerations being closely monitored. Patient also with sepsis secondary to this on admission and admitted with infectious disease and wound care consultation. Patient with significant abdominal pain and noted to have multiple episodes of diarrhea that initially improved although patient underwent a bowel prep for possible EGD/colonoscopy and started experiencing increased episodes of diarrhea with multiple loose stools was tested positive for C. difficile and patient had been maintained on antibiotics. Patient is currently on oral vancomycin and will continue for a 10-day course. Patient to continue with local wound care of the lower extremities with Aquacel dressing every 72 hours to the open wound right lower extremity and followed by Kennedy wraps to both lower extremities from the toes up to the knees. Continue to elevate lower extremities while at rest. Patient will need outpatient follow-up with infectious disease along with GI and wound care in the outpatient setting. Patient has been cleared by consultations for discharge. Please refer to consultation notes for further HPI. Currently no reports of chest pain, shortness of breath, or palpitations. Patient is afebrile. No reports of nausea or vomiting and patient is tolerating diet. Patient will be going to [facility] on the snow today. Guarded prognosis and high risk for readmissions given significant comorbidities. Physical exam: Gen: This is a 73-year-old male who is awake, alert and oriented x 3, well- developed, well-nourished, morbidly obese HEENT: Head is atraumatic, normocephalic. Pupils equal, round. Sclerae is anicteric. NECK: Supple. No JVD. No lymphadenopathy. No thyromegaly. LUNGS: Diminished breath sounds bilaterally otherwise clear to auscultation. No wheezes or rhonchi. No intercostal retractions. HEART: S1, S2 are muffled ABDOMEN: Soft. Obese, tender on palpation bowel sounds are present. No masses. EXTREMITIES: No pedal edema. No calf tenderness. Bilateral lower extremity edema noted Although improved NEUROLOGICAL: Patient is awake, alert and oriented x3. Cranial nerves 2 through 12 are grossly intact. Diffusely weak Please refer to medication reconciliation sheet for a list of medications. The impression and plan of care has been dictated by Rachele Lau, Nurse Practitioner as directed. Dr. Oz MD I have performed a history and examination and MDM of this patient, discussed the same with the dictator, and agree with the dictator's assessment and plan as written ,documented as a scribe. Based on total visit time, I have performed more than 50% of the visit. Patient Condition at Discharge: Stable Plan - Discharge Summary New Discharge Prescriptions: New Ipratropium-Albuterol Nebulize [Duoneb 0.5 mg-3 mg/3 ml Soln] 3 ml INHALATION RT-QID each HYDROcodone/APAP 7.5-325MG [Patterson 7.5-325] 1 each PO Q4H PRN #6 tab PRN Reason: Pain Pantoprazole Sodium [Protonix] 40 mg PO DAILY #30 tab Vancomycin HCl [Vancocin HCl] 250 mg PO QID 10 Days #40 cap Albuterol Nebulized [Ventolin Nebulized] 2.5 mg INHALATION RT-QID PRN ml PRN Reason: Shortness Of Breath Or Wheezing Fluticasone Nasal [place] [Flonase Nasal [place]] 2 spray EA NOSTRIL DAILY PRN ml PRN Reason: Allergy Symptoms Furosemide [Lasix] 40 mg PO BID@0900,1600 tab Enoxaparin [Lovenox] 40 mg SQ DAILY each Continue Atorvastatin [Lipitor] 40 mg PO HS Metoprolol Tartrate [Lopressor] 50 mg PO BID tiZANidine [Zanaflex] 8 mg PO HS tiZANidine [Zanaflex] 4 mg PO BID@0900,1200 Acetaminophen [Tylenol Extra Strength] 1,000 mg PO TID Aspirin EC [Ecotrin Low Dose] 81 mg PO DAILY Discontinued Furosemide [Lasix] 40 mg PO BID HYDROcodone/APAP 5-325MG [Patterson 5-325] 1 tab PO BID Discharge Medication List Atorvastatin [Lipitor] 40 mg PO HS 05/20/19 [History] Metoprolol Tartrate [Lopressor] 50 mg PO BID 05/20/19 [History] tiZANidine [Zanaflex] 4 mg PO BID@0900,1200 05/20/19 [History] tiZANidine [Zanaflex] 8 mg PO HS 05/20/19 [History] Acetaminophen [Tylenol Extra Strength] 1,000 mg PO TID 09/17/23 [History] Aspirin EC [Ecotrin Low Dose] 81 mg PO DAILY 09/17/23 [History] Albuterol Nebulized [Ventolin Nebulized] 2.5 mg INHALATION RT-QID PRN ml 09/28/23 [Rx] Enoxaparin [Lovenox] 40 mg SQ DAILY each 09/28/23 [Rx] Fluticasone Nasal [place] [Flonase Nasal [place]] 2 spray EA NOSTRIL DAILY PRN ml 09/28/23 [Rx] Furosemide [Lasix] 40 mg PO BID@0900,1600 tab 09/28/23 [Rx] HYDROcodone/APAP 7.5-325MG [Patterson 7.5-325] 1 each PO Q4H PRN #6 tab 09/28/23 [Rx] Ipratropium-Albuterol Nebulize [Duoneb 0.5 mg-3 mg/3 ml Soln] 3 ml INHALATION RT-QID each 09/28/23 [Rx] Pantoprazole Sodium [Protonix] 40 mg PO DAILY #30 tab 09/28/23 [Rx] Vancomycin HCl [Vancocin HCl] 250 mg PO QID 10 Days #40 cap 09/28/23 [Rx] Follow up Appointment(s)/Referral(s): Valorie Sharp MD [STAFF PHYSICIAN] - 2 Weeks [facility], [NON-STAFF] - As Needed Elvira Wei MD [Primary Care Provider] - 1-2 days Activity/Diet/Wound Care/Special Instructions: Patient is going to [facility]orStyle nicholson Activity as tolerated Continue with oral antibiotics in the form of Vanco 4 times daily for the next 10 days Follow-up on repeat CBC, CMP, magnesium in 2 to 3 days Continue taking medications as prescribed Patient to follow-up with GI outpatient Follow-up with cardiology outpatient Continue with local wound care to the lower extremities and elevating lower extremities while at rest Continue frequent position changes every 2 hours and offloading Continue regular diet Discharge Disposition: TRANSFER TO SNF/ECF
[2023-09-29 05:46] LABS: Glucose,Whole Blood 105 mg/dL (70-110)
--- NOTE | 2023-09-29 12:56 | P.PN ---
Subjective Progress Note Date: 09/29/23 Patient is a 73-year-old male with a past medical history of atrial fibrillation not on anticoagulation, hypertension, hyperlipidemia, chronic back pain and morbid obesity with a BMI of 44.8 and also chronic bilateral lower extremity swelling presents to ER with complaints of worsening right lower extremity swelling and ruptured blister along with redness and increased pain. Patient has been having worsening swelling for the past 2 weeks. Patient is currently living by himself and his girlfriend is out of town for the past 2 weeks. Patient was unable to get out of bed and also felt very weak, could not come to hospital.. Patient states that he had prior history of leg cellulitis 2 years ago. Patient was seen by his physician 4 days arthritis and was recommended right knee brace. Patient states that he has been having increased right leg swelling since then. On admission patient was febrile with Tmax 102 F and blood pressure 93/55 pulse 102 and respiration 94% on 3 L oxygen via nasal cannula. Patient take Lasix 40 mg twice daily at home. Laboratory data showed WBC 16.7 hemoglobin 14.6 and platelets 272 Sodium 137 potassium 2.9 chloride 101 bicarb is 26 BUN 21 and creatinine 1.25, total bilirubin 4.0 liver enzymes are not elevated. Troponin 0.052 and proBNP 1420. Right lower extremity duplex scan showed no evidence of DVT. EKG showed sinus tachycardia. 09/19/2023 Patient is lying in the bed. Awake alert and oriented. Right lower extremity is currently Kennedy wrapped. Swelling is improving. Patient has been afebrile. No nausea or vomiting. Patient has very minimal oral intake otherwise. Cultures have been negative. Patient is being continued on antibiotics at home cefazolin. ID is on board. Lab data showed WBC 13.4 hemoglobin 10.3 and platelets 158 sodium 142 potassium 3.3 chloride 108 bicarb is 28.9 BUN 20.3 and creatinine 1.8 and blood sugar 181 and calcium 7.8. Liver enzymes showed AST went up to 117 ALT 58 alk phos 69 albumin 2.5. Urinalysis showed 2+ protein trace glucose trace ketones and WBCs 3. 09/20/2023 Patient is lying in the bed. Awake alert and oriented. Requiring 2 L oxygen via nasal cannula. No complaints of chest pain or shortness of breath. Otherwise patient is complaining of nausea and vomiting and also diarrhea with abdominal distention. Otherwise right lower extremity swelling and redness is improving. Currently on IV antibiotic in the home with Unasyn. ID is on board. CT of the abdomen pelvis was ordered. Laboratory data showed WBC 14.9 hemoglobin 11.9 platelets 207 Sodium 141 potassium 3.2 chloride 110 bicarb is 26 BUN 13 creatinine 1.33 and blood sugar 133. Calcium 8.3. 2D echocardiogram showed LVH with mildly reduced LV systolic function. RV enlargement. 09/21/2023 Patient is currently lying in the bed. Still complains of nausea and unable to tolerate any solid diet. Patient was able to drink water. Episode of vomiting. Denies any hematemesis. No fever no chills. Denies any abdominal pain. Otherwise right lower extremity swelling and redness is improving. Wound care is being done. Patient remains on antibiotics of cefazolin and vancomycin was added due to worsening leukocytosis. CT of the abdomen pelvis showed gastric distention with contrast passes into the proximal and mid small bowel. There is suggested eccentric wall thickening of the proximal duodenum. Underlying mass is not excluded. Direct visualization is recommended. Correlate for gastroparesis. No CT evidence for complete bowel obstruction. Hepatomegaly. Colonic diverticulosis. Cholelithiasis. Trace left and small right pleural effusions with partial atelectasis of the right lower lobe. Sequela of prior granulomatous disease. Lab data showed WBC 19.15 hemoglobin 11.7 and platelets 247 sodium 143 potassium 3.7 chloride 105 bicarb is 24 BUN 24.7 and creatinine 1.49 blood sugar 53 and calcium 8.2. 09/22/2023 Patient is lying in the bed. Awake alert but still complains of nausea and unable to take any oral intake. No diarrhea. No complaints of abdominal pain. Did not have bowel movement. Patient feels abdominal is distended/bloated. No complaints of chest pain or shortness of breath. Patient is currently on 2 L oxygen via nasal cannula. Laboratory data showed WBC remains the same at 19.3 hemoglobin 13.3 and platelets 255. Other laboratory data reviewed. Blood cultures have been negative so far. Patient antibiotics remains on antibiotics vancomycin and Unasyn. 09/23/2023 Patient is lying in the bed. Awake alert and oriented x 3. Patient states that he feels better today. Abdomen is less distended. Also still complaining of some right upper quadrant abdominal pain. No complaints of chest pain or shortness of breath. Encouraged with incentive spirometry. Patient denies any bowel meant last couple of days. Able to pass flatus. No fever or chills Otherwise right lower extremity wound is wrapped. No discharge noted. Continued on IV antibiotics Unasyn and vancomycin. ID is on board. X-ray of the abdomen was ordered to rule out obstruction. Laboratory data showed WBC improved to 15.2 hemoglobin 11.4 and platelets 243 sodium 136 potassium 3.0 chloride 104 bicarb is 25 BUN 13 creatinine 1.27 and calcium 7.7 total bili 2.4 AST 115 ALT 48 alk phos 138 and CRP 24.5. 09/24/2023 Patient is evaluated today on the medical floor in follow up. He is alert x 3 today. Having complaints of abdominal discomfort and left quadrant pain. Having multiple episodes of lose stool today. He had an abdominal xray completed revealing overall stable appearance of a dilated stomach, further discussed on recent CT exam. Fecal material and gas are demonstrated throughout the colon and rectum. Blood work today reveals white blood cell count of 13.75, hgb 11.9, sodium of 136, BUN 30, creatinine 1.24. Patient has been continued on oral lasix and received an additional dose of IV lasix yesterday. He was given a fluid bolus and normal saline infusion due to low blood pressures. We will stop both lasix and fluids at this time and repeat blood work tomorrow. 09/25/2023 Patient is evaluated in follow-up in the medical floor he is more awake and alert. Patient does report improvement in his abdominal discomfort and he is less distended today. He has had 3 large soft bowel movement overnight. His blood work from today is unavailable at this time and has not yet been drawn. Patient was 114/70. He continues on 2 L of oxygen via nasal cannula. Patient was evaluated by GI services today. 09/26/2023 Patient is evaluated today in follow-up on the medical floor. He continues to report left lower quadrant abdominal pain however has decreased in intensity. Patient has had multiple bowel movements overnight and a C. difficile was ordered and checked and he was found to be positive. He has been started on oral vancomycin 250 mg 4 times a day with ID following closely. Additionally patient is continued on oral Augmentin for the right lower extremity cellulitis and chronic wound. We checked a shoulder x-ray on the left side shows no acute osseous abnormality. His sodium is 138, potassium 3.9, BUN 22, creatinine 1.18, calcium 7.8. Patient was scheduled to undergo EGD today which is now placed on hold. GI is following. 09/27/2023 Patient is seen in follow-up reports to feeling extremely agitated with multiple medical consultations following. Patient was n.p.o. as patient was scheduled to undergo EGD with GI. Patient refused reporting he cannot tolerate no diet and demanding to eat. Will attempt endoscopy on 09/28/2023. Patient continues with diarrhea maintained on C. difficile and reports continued abdominal pain. Patient with infectious disease following with lower extremity cellulitis along with C. difficile was continued on oral Augmentin and local wound care. Patient has been encouraged to increase activity as tolerated although has been refusing reporting he is not feeling well. Patient continuously makes comments about checking out of the hospital. Patient would be leaving AMA. 09/28. Patient seen and examined. Currently waiting on insurance authorization. REVIEW OF SYSTEMS: CONSTITUTIONAL: No fever, no malaise,. CARDIOVASCULAR: No chest pain, no palpitations, no syncope. PULMONARY: No shortness of breath, no cough, GASTROINTESTINAL: No diarrhea, no nausea, no vomiting, no abdominal pain. NEUROLOGICAL: No headaches, no weakness, PHYSICAL EXAMINATION: GENERAL: The patient is alert and oriented x3, not in any acute distress. Well developed, well nourished. HEENT: Pupils are round and equally reacting to light. EOMI. No scleral icterus. No conjunctival pallor. Normocephalic, atraumatic. No pharyngeal erythema. No thyromegaly. CARDIOVASCULAR: S1 and S2 present. No murmurs, rubs, or gallops. PULMONARY: Chest is clear to auscultation, no wheezing or crackles. ABDOMEN: Soft, nontender, nondistended, normoactive bowel sounds. No palpable organomegaly. MUSCULOSKELETAL: No joint swelling or deformity. EXTREMITIES: No cyanosis, clubbing, or pedal edema. NEUROLOGICAL: Gross neurological examination did not reveal any focal deficits. SKIN: No rashes. Assessment and plan Right lower extremity cellulitis with ruptured blister and superficial ulceration Sepsis secondary to above Eccentric wall thickening of the proximal duodenum. Underlying mass is not excluded. C. difficile colitis patient was having multiple bowel movements which then stopped and now started again due to the bowel prep. Elevated liver enzymes Nausea vomiting abdominal pain and diarrhea. Improved. Macrocytic anemia will check vitamin B12 and folate level. Severe hypokalemia. Replaced. Chronic bilateral lower extremity swelling. Paroxysmal atrial fibrillation. Patient is currently in sinus rhythm. Not on anticoagulation. Elevated troponin level Elevated bilirubin level Increased pain to the left shoulder with previous dislocation and reduction back in 2019. No fractures noted Hypertension Hyperlipidemia Pilonidal cyst hx and patient has Stage II pressure injury right buttock, POA. Chronic back pain Monitor vital signs Monitor CBC Monitor CMP Continue aspirin, Lipitor Strict I's and O's, daily weights, continue Lasix 40 mg twice a day Continue oral vancomycin. Patient is medically stable for discharge, currently waiting on insurance authorization Labs and medication were reviewed.. Continue same treatment. Continue with sy mptomatic treatment. Resume home medication. Monitor labs and vitals. DVT and GI prophylaxis. Further recommendations as per clinical course of the patient Dictation was produced using [employer] dictation software. please excuse any grammatical, word or spelling errors. Objective - Vital Signs Vital signs: Vital Signs Temp 98.3 F 09/29/23 07:59 Pulse 72 09/29/23 07:59 Resp 18 09/29/23 08:40 BP 129/83 09/29/23 07:59 Pulse Ox 95 09/29/23 07:59 FiO2 21 09/28/23 08:57 Intake & Output 09/28/23 09/29/23 09/29/23 18:59 06:59 18:59 Intake Total 100 Output Total 1000 1200 Balance -900 -1200 Intake: IV 100 Output: Urine 1000 1200 Other: Voiding Method External Catheter External Catheter External Catheter - Labs CBC & Chem 7: 09/27/23 06:28 09/27/23 06:28 Labs: Abnormal Lab Results - Last 24 Hours (Table) 09/25/23 Range/Units 15:11 Sodium 167 A* (135-145) mmol/L Chloride 126 H (96-109) mmol/L Carbon Dioxide 16.6 L (21.6-31.8) mmol/L Anion Gap 24.40 H (4.00-12.00) mmol/L BUN 31.0 H (9.0-27.0) mg/dL Creatinine 1.7 H (0.6-1.5) mg/dL Est GFR (CKD-EPI) 42 L (>=60) Glucose 147 H (70-110) mg/dL Microbiology - Last 24 Hours (Table) 09/25/23 16:30 Stool Culture - Final Stool Pseudomonas aeruginosa
--- NOTE | 2023-09-29 15:06 | P.PN ---
Subjective Progress Note Date: 09/28/23 Principal diagnosis: Reason for follow-up is right lower extremity wound and cellulitis Patient is a 73-year-old male with a past medical history significant for hypertension hyperlipidemia atrial fibrillation chronic back pain patient presented to hospital with increasing swelling redness to the right leg with some blister formation along with nausea vomiting ID consulted concerning for the right lower extremity cellulitis. On today's evaluation that is 09/28/2023,the patient denies any fever or any chills, patient is breathing comfortably on room air, the patient denies chest pain shortness of breath and no significant cough, patient denies abdominal pain, no nausea vomiting, did have 1 bowel movement today mention was not loose denies pain to the right lower extremity evaluated. No new labs has been obtained today stool culture also grew Pseudomonas Objective - Vital Signs Vital signs: Vital Signs Temp 97.7 F 09/28/23 07:56 Pulse 102 H 09/28/23 08:55 Resp 19 09/28/23 08:55 BP 105/77 09/28/23 07:56 Pulse Ox 93 L 09/28/23 08:57 FiO2 09/28/23 08:57 Intake & Output 09/27/23 09/28/23 09/28/23 18:59 06:59 18:59 Intake Total 100 Output Total 975 850 Balance -975 -850 100 Intake: IV 100 Output: Urine 975 850 Other: Voiding Method External Catheter External Catheter External Catheter - Exam GENERAL DESCRIPTION: An elderly male lying in bed in no distress RESPIRATORY SYSTEM: Unlabored breathing , decreased breath sounds at bases HEART: S1 S2 regular rate and rhythm , ABDOMEN: Soft , no tenderness EXTREMITIES: Right lower extremity wound currently dressed - Labs CBC & Chem 7: 09/27/23 06:28 09/27/23 06:28 Labs: Microbiology - Last 24 Hours (Table) 09/25/23 16:30 Stool Culture - Preliminary Stool Pseudomonas aeruginosa Assessment and Plan (1) Sepsis Current Visit: Yes Status: Acute Code(s): A41.9 - SEPSIS, UNSPECIFIED ORGANISM SNOMED Code(s): 68221805 (2) Leg wound, right Current Visit: Yes Status: Acute Code(s): S81.801A - UNSPECIFIED OPEN WOUND, RIGHT LOWER LEG, INITIAL ENCOUNTER SNOMED Code(s): 57182054754560002 (3) Cellulitis of right leg Current Visit: Yes Status: Acute Code(s): L03.115 - CELLULITIS OF RIGHT LOWER LIMB SNOMED Code(s): 98717618950664918 Plan: 1patient presented to hospital with sepsis in this patient who did have a diffuse swelling redness to bilateral extremity some superficial ulceration probably blister in this patient noted evidence of fluid overload likely representing a streptococcal cellulitis, clinically not behaving as MRSA or gram-negative infection. 2patient to continue with Aquacel silver dressing to the open wound followed by Kennedy wrap from just above the toe to below the knee change daily. 3patient did have CT of abdominal pelvis some thickening of the duodenum, radiology recommended direct visualization patient is status post EGD with evidence of gastritis no mention of any mass 4patient did have improvement to the right lower extremity cellulitis patient has received adequate IV and oral and by therapy for his right lower extremity cellulitis, patient overall resolution of his right lower extremity cellulitis continue local wound care with Aquacel silver dressing 5patient did have diarrhea, stool for C. difficile came back positive, the patient stool also growing Pseudomonas possible colonization no need for the specific antibiotic therapy towards positive stool culture with Pseudomonas, patient to continue with oral vancomycin to finish a 10-day course of therapy encouraged to increase his probiotic and yogurt intake Dictation was produced using [employer] dictation software. please excuse any gra mmatical, word or spelling errors. Time with Patient: Less than 30
--- NOTE | 2023-09-29 15:07 | P.PN ---
Subjective Progress Note Date: 09/29/23 Principal diagnosis: Reason for follow-up is right lower extremity wound and cellulitis Patient is a 73-year-old male with a past medical history significant for hypertension hyperlipidemia atrial fibrillation chronic back pain patient presented to hospital with increasing swelling redness to the right leg with some blister formation along with nausea vomiting ID consulted concerning for the right lower extremity cellulitis. On today's evaluation that is 09/29/2023,the patient remains to be afebrile, patient is on room air not requiring supplemental oxygen and denies any shortness of breath no chest pain or cough.Patient denies having any nausea or vomiting, no abdominal pain and did have resolution of his diarrhea no bowel movements today denies pain to the right lower extremity wound. No new labs has been obtained today Objective - Vital Signs Vital signs: Vital Signs Temp 98.3 F 09/29/23 07:59 Pulse 72 09/29/23 07:59 Resp 18 09/29/23 08:40 BP 129/83 09/29/23 07:59 Pulse Ox 95 09/29/23 07:59 FiO2 21 09/28/23 08:57 Intake & Output 09/28/23 09/29/23 09/29/23 18:59 06:59 18:59 Intake Total 100 Output Total 1000 1200 Balance -900 -1200 Intake: IV 100 Output: Urine 1000 1200 Other: Voiding Method External Catheter External Catheter External Catheter - Exam GENERAL DESCRIPTION: An elderly male lying in bed in no distress RESPIRATORY SYSTEM: Unlabored breathing , decreased breath sounds at bases HEART: S1 S2 regular rate and rhythm , ABDOMEN: Soft , no tenderness EXTREMITIES: Right lower extremity redness is resolved wound has decreased in size covered with the Aquacel silver dressing - Labs CBC & Chem 7: 09/27/23 06:28 09/27/23 06:28 Labs: Abnormal Lab Results - Last 24 Hours (Table) 09/25/23 Range/Units 15:11 Sodium 167 A* (135-145) mmol/L Chloride 126 H (96-109) mmol/L Carbon Dioxide 16.6 L (21.6-31.8) mmol/L Anion Gap 24.40 H (4.00-12.00) mmol/L BUN 31.0 H (9.0-27.0) mg/dL Creatinine 1.7 H (0.6-1.5) mg/dL Est GFR (CKD-EPI) 42 L (>=60) Glucose 147 H (70-110) mg/dL Microbiology - Last 24 Hours (Table) 09/25/23 16:30 Stool Culture - Final Stool Pseudomonas aeruginosa Assessment and Plan (1) Sepsis Current Visit: Yes Status: Acute Code(s): A41.9 - SEPSIS, UNSPECIFIED ORGANISM SNOMED Code(s): 66383046 (2) Leg wound, right Current Visit: Yes Status: Acute Code(s): S81.801A - UNSPECIFIED OPEN WOUND, RIGHT LOWER LEG, INITIAL ENCOUNTER SNOMED Code(s): 53480103133803290 (3) Cellulitis of right leg Current Visit: Yes Status: Acute Code(s): L03.115 - CELLULITIS OF RIGHT LOWER LIMB SNOMED Code(s): 94168645098489917 Plan: 1patient presented to hospital with sepsis in this patient who did have a diffuse swelling redness to bilateral extremity some superficial ulceration probably blister in this patient noted evidence of fluid overload likely representing a streptococcal cellulitis, clinically not behaving as MRSA or gram-negative infection. 2patient to continue with Aquacel silver dressing to the open wound followed by Kennedy wrap from just above the toe to below the knee change daily. 3patient did have CT of abdominal pelvis some thickening of the duodenum, radiology recommended direct visualization patient is status post EGD with evidence of gastritis no mention of any mass 4patient did have improvement to the right lower extremity cellulitis patient has received adequate IV and oral and by therapy for his right lower extremity cellulitis, patient overall resolution of his right lower extremity cellulitis continue local wound care with Aquacel silver dressing 5patient did have diarrhea, stool for C. difficile came back positive, the patient stool also growing Pseudomonas possible colonization no need for the specific antibiotic therapy towards positive stool culture with Pseudomonas 6/patient to continue with oral vancomycin to finish a 10-day course of therapy for receipt of colitis, patient has been encouraged to increase his probiotic and yogurt intake Dictation was produced using [employer] dictation software. please excuse any grammatical, word or spelling errors. Time with Patient: Less than 30
--- NOTE | 2023-09-30 13:07 | P.PN ---
Subjective Progress Note Date: 09/30/23 Patient is a 73-year-old male with a past medical history of atrial fibrillation not on anticoagulation, hypertension, hyperlipidemia, chronic back pain and morbid obesity with a BMI of 44.8 and also chronic bilateral lower extremity swelling presents to ER with complaints of worsening right lower extremity swelling and ruptured blister along with redness and increased pain. Patient has been having worsening swelling for the past 2 weeks. Patient is currently living by himself and his girlfriend is out of town for the past 2 weeks. Patient was unable to get out of bed and also felt very weak, could not come to hospital.. Patient states that he had prior history of leg cellulitis 2 years ago. Patient was seen by his physician 4 days arthritis and was recommended right knee brace. Patient states that he has been having increased right leg swelling since then. On admission patient was febrile with Tmax 102 F and blood pressure 93/55 pulse 102 and respiration 94% on 3 L oxygen via nasal cannula. Patient take Lasix 40 mg twice daily at home. Laboratory data showed WBC 16.7 hemoglobin 14.6 and platelets 272 Sodium 137 potassium 2.9 chloride 101 bicarb is 26 BUN 21 and creatinine 1.25, total bilirubin 4.0 liver enzymes are not elevated. Troponin 0.052 and proBNP 1420. Right lower extremity duplex scan showed no evidence of DVT. EKG showed sinus tachycardia. 09/19/2023 Patient is lying in the bed. Awake alert and oriented. Right lower extremity is currently Kennedy wrapped. Swelling is improving. Patient has been afebrile. No nausea or vomiting. Patient has very minimal oral intake otherwise. Cultures have been negative. Patient is being continued on antibiotics at home cefazolin. ID is on board. Lab data showed WBC 13.4 hemoglobin 10.3 and platelets 158 sodium 142 potassium 3.3 chloride 108 bicarb is 28.9 BUN 20.3 and creatinine 1.8 and blood sugar 181 and calcium 7.8. Liver enzymes showed AST went up to 117 ALT 58 alk phos 69 albumin 2.5. Urinalysis showed 2+ protein trace glucose trace ketones and WBCs 3. 09/20/2023 Patient is lying in the bed. Awake alert and oriented. Requiring 2 L oxygen via nasal cannula. No complaints of chest pain or shortness of breath. Otherwise patient is complaining of nausea and vomiting and also diarrhea with abdominal distention. Otherwise right lower extremity swelling and redness is improving. Currently on IV antibiotic in the home with Unasyn. ID is on board. CT of the abdomen pelvis was ordered. Laboratory data showed WBC 14.9 hemoglobin 11.9 platelets 207 Sodium 141 potassium 3.2 chloride 110 bicarb is 26 BUN 13 creatinine 1.33 and blood sugar 133. Calcium 8.3. 2D echocardiogram showed LVH with mildly reduced LV systolic function. RV enlargement. 09/21/2023 Patient is currently lying in the bed. Still complains of nausea and unable to tolerate any solid diet. Patient was able to drink water. Episode of vomiting. Denies any hematemesis. No fever no chills. Denies any abdominal pain. Otherwise right lower extremity swelling and redness is improving. Wound care is being done. Patient remains on antibiotics of cefazolin and vancomycin was added due to worsening leukocytosis. CT of the abdomen pelvis showed gastric distention with contrast passes into the proximal and mid small bowel. There is suggested eccentric wall thickening of the proximal duodenum. Underlying mass is not excluded. Direct visualization is recommended. Correlate for gastroparesis. No CT evidence for complete bowel obstruction. Hepatomegaly. Colonic diverticulosis. Cholelithiasis. Trace left and small right pleural effusions with partial atelectasis of the right lower lobe. Sequela of prior granulomatous disease. Lab data showed WBC 19.15 hemoglobin 11.7 and platelets 247 sodium 143 potassium 3.7 chloride 105 bicarb is 24 BUN 24.7 and creatinine 1.49 blood sugar 53 and calcium 8.2. 09/22/2023 Patient is lying in the bed. Awake alert but still complains of nausea and unable to take any oral intake. No diarrhea. No complaints of abdominal pain. Did not have bowel movement. Patient feels abdominal is distended/bloated. No complaints of chest pain or shortness of breath. Patient is currently on 2 L oxygen via nasal cannula. Laboratory data showed WBC remains the same at 19.3 hemoglobin 13.3 and platelets 255. Other laboratory data reviewed. Blood cultures have been negative so far. Patient antibiotics remains on antibiotics vancomycin and Unasyn. 09/23/2023 Patient is lying in the bed. Awake alert and oriented x 3. Patient states that he feels better today. Abdomen is less distended. Also still complaining of some right upper quadrant abdominal pain. No complaints of chest pain or shortness of breath. Encouraged with incentive spirometry. Patient denies any bowel meant last couple of days. Able to pass flatus. No fever or chills Otherwise right lower extremity wound is wrapped. No discharge noted. Continued on IV antibiotics Unasyn and vancomycin. ID is on board. X-ray of the abdomen was ordered to rule out obstruction. Laboratory data showed WBC improved to 15.2 hemoglobin 11.4 and platelets 243 sodium 136 potassium 3.0 chloride 104 bicarb is 25 BUN 13 creatinine 1.27 and calcium 7.7 total bili 2.4 AST 115 ALT 48 alk phos 138 and CRP 24.5. 09/24/2023 Patient is evaluated today on the medical floor in follow up. He is alert x 3 today. Having complaints of abdominal discomfort and left quadrant pain. Having multiple episodes of lose stool today. He had an abdominal xray completed revealing overall stable appearance of a dilated stomach, further discussed on recent CT exam. Fecal material and gas are demonstrated throughout the colon and rectum. Blood work today reveals white blood cell count of 13.75, hgb 11.9, sodium of 136, BUN 30, creatinine 1.24. Patient has been continued on oral lasix and received an additional dose of IV lasix yesterday. He was given a fluid bolus and normal saline infusion due to low blood pressures. We will stop both lasix and fluids at this time and repeat blood work tomorrow. 09/25/2023 Patient is evaluated in follow-up in the medical floor he is more awake and alert. Patient does report improvement in his abdominal discomfort and he is less distended today. He has had 3 large soft bowel movement overnight. His blood work from today is unavailable at this time and has not yet been drawn. Patient was 114/70. He continues on 2 L of oxygen via nasal cannula. Patient was evaluated by GI services today. 09/26/2023 Patient is evaluated today in follow-up on the medical floor. He continues to report left lower quadrant abdominal pain however has decreased in intensity. Patient has had multiple bowel movements overnight and a C. difficile was ordered and checked and he was found to be positive. He has been started on oral vancomycin 250 mg 4 times a day with ID following closely. Additionally patient is continued on oral Augmentin for the right lower extremity cellulitis and chronic wound. We checked a shoulder x-ray on the left side shows no acute osseous abnormality. His sodium is 138, potassium 3.9, BUN 22, creatinine 1.18, calcium 7.8. Patient was scheduled to undergo EGD today which is now placed on hold. GI is following. 09/27/2023 Patient is seen in follow-up reports to feeling extremely agitated with multiple medical consultations following. Patient was n.p.o. as patient was scheduled to undergo EGD with GI. Patient refused reporting he cannot tolerate no diet and demanding to eat. Will attempt endoscopy on 09/28/2023. Patient continues with diarrhea maintained on C. difficile and reports continued abdominal pain. Patient with infectious disease following with lower extremity cellulitis along with C. difficile was continued on oral Augmentin and local wound care. Patient has been encouraged to increase activity as tolerated although has been refusing reporting he is not feeling well. Patient continuously makes comments about checking out of the hospital. Patient would be leaving AMA. 09/28. Patient seen and examined. Currently waiting on insurance authorization. 09/29. Patient seen and examined. No acute issues overnight. ID recommended completing 10-day course of oral vancomycin at discharge REVIEW OF SYSTEMS: CONSTITUTIONAL: No fever, no malaise,. CARDIOVASCULAR: No chest pain, no palpitations, no syncope. PULMONARY: No shortness of breath, no cough, GASTROINTESTINAL: No diarrhea, no nausea, no vomiting, no abdominal pain. NEUROLOGICAL: No headaches, no weakness, PHYSICAL EXAMINATION: GENERAL: The patient is alert and oriented x3, not in any acute distress. Well developed, well nourished. HEENT: Pupils are round and equally reacting to light. EOMI. No scleral icterus. No conjunctival pallor. Normocephalic, atraumatic. No pharyngeal erythema. No thyromegaly. CARDIOVASCULAR: S1 and S2 present. No murmurs, rubs, or gallops. PULMONARY: Chest is clear to auscultation, no wheezing or crackles. ABDOMEN: Soft, nontender, nondistended, normoactive bowel sounds. No palpable organomegaly. MUSCULOSKELETAL: No joint swelling or deformity. EXTREMITIES: No cyanosis, clubbing, or pedal edema. NEUROLOGICAL: Gross neurological examination did not reveal any focal deficits. SKIN: No rashes. Assessment and plan Right lower extremity cellulitis with ruptured blister and superficial ulceration Sepsis secondary to above Eccentric wall thickening of the proximal duodenum. Underlying mass is not excluded. C. difficile colitis patient was having multiple bowel movements which then stopped and now started again due to the bowel prep. Elevated liver enzymes Nausea vomiting abdominal pain and diarrhea. Improved. Macrocytic anemia will check vitamin B12 and folate level. Severe hypokalemia. Replaced. Chronic bilateral lower extremity swelling. Paroxysmal atrial fibrillation. Patient is currently in sinus rhythm. Not on anticoagulation. Elevated troponin level Elevated bilirubin level Increased pain to the left shoulder with previous dislocation and reduction back in 2019. No fractures noted Hypertension Hyperlipidemia Pilonidal cyst hx and patient has Stage II pressure injury right buttock, POA. Chronic back pain Monitor vital signs Monitor CBC Monitor CMP Continue aspirin, Lipitor Strict I's and O's, daily weights, continue Lasix 40 mg twice a day Continue oral vancomycin for 10 days. Patient is medically stable for discharge, currently waiting on insurance authorization Labs and medication were reviewed.. Continue same treatment. Continue with symptomatic treatment. Resume home medication. Monitor labs and vitals. DVT and GI prophylaxis. Further recommendations as per clinical course of the patient Dictation was produced using [employer] dictation software. please excuse any grammatical, word or spelling errors. Objective - Vital Signs Vital signs: Vital Signs Temp 98.0 F 09/30/23 07:13 Pulse 68 09/30/23 07:13 Resp 18 09/30/23 09:10 BP 107/61 09/30/23 07:13 Pulse Ox 90 L 09/30/23 07:13 FiO2 21 09/28/23 08:57 Intake & Output 09/29/23 09/30/23 09/30/23 18:59 06:59 18:59 Output Total 700 850 Balance -700 -850 Output: Urine 700 850 Other: Voiding Method External Catheter External Catheter External Catheter - Labs CBC & Chem 7: 09/27/23 06:28 09/27/23 06:28
--- NOTE | 2023-10-01 13:59 | P.PN ---
Subjective Progress Note Date: 10/01/23 Patient is a 73-year-old male with a past medical history of atrial fibrillation not on anticoagulation, hypertension, hyperlipidemia, chronic back pain and morbid obesity with a BMI of 44.8 and also chronic bilateral lower extremity swelling presents to ER with complaints of worsening right lower extremity swelling and ruptured blister along with redness and increased pain. Patient has been having worsening swelling for the past 2 weeks. Patient is currently living by himself and his girlfriend is out of town for the past 2 weeks. Patient was unable to get out of bed and also felt very weak, co uld not come to hospital.. Patient states that he had prior history of leg cellulitis 2 years ago. Patient was seen by his physician 4 days arthritis and was recommended right knee brace. Patient states that he has been having increased right leg swelling since then. On admission patient was febrile with Tmax 102 F and blood pressure 93/55 pulse 102 and respiration 94% on 3 L oxygen via nasal cannula. Patient take Lasix 40 mg twice daily at home. Laboratory data showed WBC 16.7 hemoglobin 14.6 and platelets 272 Sodium 137 potassium 2.9 chloride 101 bicarb is 26 BUN 21 and creatinine 1.25, t otal bilirubin 4.0 liver enzymes are not elevated. Troponin 0.052 and proBNP 1420. Right lower extremity duplex scan showed no evidence of DVT. EKG showed sinus tachycardia. 09/19/2023 Patient is lying in the bed. Awake alert and oriented. Right lower extremity is currently Kennedy wrapped. Swelling is improving. Patient has been afebrile. No nausea or vomiting. Patient has very minimal oral intake otherwise. Cultures have been negative. Patient is being continued on antibiotics at home cefazolin. ID is on board. Lab data showed WBC 13.4 hemoglobin 10.3 and platelets 158 sodium 142 potassium 3.3 chloride 108 bicarb is 28.9 BUN 20.3 and creatinine 1.8 and blood sugar 181 and calcium 7.8. Liver enzymes showed AST went up to 117 ALT 58 alk phos 69 albumin 2.5. Urinalysis showed 2+ protein trace glucose trace ketones and WBCs 3. 09/20/2023 Patient is lying in the bed. Awake alert and oriented. Requiring 2 L oxygen via nasal cannula. No complaints of chest pain or shortness of breath. Otherwise patient is complaining of nausea and vomiting and also diarrhea with abdominal distention. Otherwise right lower extremity swelling and redness is improving. Currently on IV antibiotic in the home with Unasyn. ID is on board. CT of the abdomen pelvis was ordered. Laboratory data showed WBC 14.9 hemoglobin 11.9 platelets 207 Sodium 141 potassium 3.2 chloride 110 bicarb is 26 BUN 13 creatinine 1.33 and blood sugar 133. Calcium 8.3. 2D echocardiogram showed LVH with mildly reduced LV systolic function. RV enlargement. 09/21/2023 Patient is currently lying in the bed. Still complains of nausea and unable to tolerate any solid diet. Patient was able to drink water. Episode of vomiting. Denies any hematemesis. No fever no chills. Denies any abdominal pain. Otherwise right lower extremity swelling and redness is improving. Wound care is being done. Patient remains on antibiotics of cefazolin and vancomycin was added due to worsening leukocytosis. CT of the abdomen pelvis showed gastric distention with contrast passes into the proximal and mid small bowel. There is suggested eccentric wall thickening of the proximal duodenum. Underlying mass is not excluded. Direct visualization is recommended. Correlate for gastroparesis. No CT evidence for complete bowel obstruction. Hepatomegaly. Colonic diverticulosis. Cholelithiasis. Trace left and small right pleural effusions with partial atelectasis of the right lower lobe. Sequela of prior granulomatous disease. Lab data showed WBC 19.15 hemoglobin 11.7 and platelets 247 sodium 143 potassium 3.7 chloride 105 bicarb is 24 BUN 24.7 and creatinine 1.49 blood sugar 53 and calcium 8.2. 09/22/2023 Patient is lying in the bed. Awake alert but still complains of nausea and unable to take any oral intake. No diarrhea. No complaints of abdominal pain. Did not have bowel movement. Patient feels abdominal is distended/bloated. No complaints of chest pain or shortness of breath. Patient is currently on 2 L oxygen via nasal cannula. Laboratory data showed WBC remains the same at 19.3 hemoglobin 13.3 and platelets 255. Other laboratory data reviewed. Blood cultures have been negative so far. Patient antibiotics remains on antibiotics vancomycin and Unasyn. 09/23/2023 Patient is lying in the bed. Awake alert and oriented x 3. Patient states that he feels better today. Abdomen is less distended. Also still complaining of some right upper quadrant abdominal pain. No complaints of chest pain or shortness of breath. Encouraged with incentive spirometry. Patient denies any bowel meant last couple of days. Able to pass flatus. No fever or chills Otherwise right lower extremity wound is wrapped. No discharge noted. Continued on IV antibiotics Unasyn and vancomycin. ID is on board. X-ray of the abdomen was ordered to rule out obstruction. Laboratory data showed WBC improved to 15.2 hemoglobin 11.4 and platelets 243 sodium 136 potassium 3.0 chloride 104 bicarb is 25 BUN 13 creatinine 1.27 and calcium 7.7 total bili 2.4 AST 115 ALT 48 alk phos 138 and CRP 24.5. 09/24/2023 Patient is evaluated today on the medical floor in follow up. He is alert x 3 today. Having complaints of abdominal discomfort and left quadrant pain. Having multiple episodes of lose stool today. He had an abdominal xray completed revealing overall stable appearance of a dilated stomach, further discussed on recent CT exam. Fecal material and gas are demonstrated throughout the colon and rectum. Blood work today reveals white blood cell count of 13.75, hgb 11.9, sodium of 136, BUN 30, creatinine 1.24. Patient has been continued on oral lasix and received an additional dose of IV lasix yesterday. He was given a fluid bolus and normal saline infusion due to low blood pressures. We will stop both l asix and fluids at this time and repeat blood work tomorrow. 09/25/2023 Patient is evaluated in follow-up in the medical floor he is more awake and alert. Patient does report improvement in his abdominal discomfort and he is less distended today. He has had 3 large soft bowel movement overnight. His blood work from today is unavailable at this time and has not yet been drawn. Patient was 114/70. He continues on 2 L of oxygen via nasal cannula. Patient was evaluated by GI services today. 09/26/2023 Patient is evaluated today in follow-up on the medical floor. He continues to report left lower quadrant abdominal pain however has decreased in intensity. Patient has had multiple bowel movements overnight and a C. difficile was ordered and checked and he was found to be positive. He has been started on oral vancomycin 250 mg 4 times a day with ID following closely. Additionally heike jean is continued on oral Augmentin for the right lower extremity cellulitis and chronic wound. We checked a shoulder x-ray on the left side shows no acute osseous abnormality. His sodium is 138, potassium 3.9, BUN 22, creatinine 1.18, calcium 7.8. Patient was scheduled to undergo EGD today which is now placed on hold. GI is following. 09/27/2023 Patient is seen in follow-up reports to feeling extremely agitated with multiple medical consultations following. Patient was n.p.o. as patient was scheduled to undergo EGD with GI. Patient refused reporting he cannot tolerate no diet and demanding to eat. Will attempt endoscopy on 09/28/2023. Patient continues with diarrhea maintained on C. difficile and reports continued abdominal pain. Patient with infectious disease following with lower extremity cellulitis along with C. difficile was continued on oral Augmentin and local wound care. Patient has been encouraged to increase activity as tolerated although has been refusing reporting he is not feeling well. Patient continuously makes comments about checking out of the hospital. Patient would be leaving AMA. Patient is a 73-year-old male with a past medical history of atrial fibrillation not on anticoagulation, hypertension, hyperlipidemia, chronic back pain and morbid obesity with a BMI of 44.8 and also chronic bilateral lower extremity swelling presents to ER with complaints of worsening right lower extremity swelling and ruptured blister along with redness and increased pain. Patient has been having worsening swelling for the past 2 weeks. Patient is currently living by himself and his girlfriend is out of town for the past 2 weeks. Patient was unable to get out of bed and also felt very weak, could not come to hospital.. Patient states that he had prior history of leg cellulitis 2 years ago. Patient was seen by his physician 4 days arthritis and was recommended right knee brace. Patient states that he has been having increased right leg swelling since then. On admission patient was febrile with Tmax 102 F and blood pressure 93/55 pulse 102 and respiration 94% on 3 L oxygen via nasal cannula. Patient take Lasix 40 mg twice daily at home. Laboratory data showed WBC 16.7 hemoglobin 14.6 and platelets 272 Sodium 137 potassium 2.9 chloride 101 bicarb is 26 BUN 21 and creatinine 1.25, total bilirubin 4.0 liver enzymes are not elevated. Troponin 0.052 and proBNP 1420. Right lower extremity duplex scan showed no evidence of DVT. EKG showed sinus tachycardia. 09/19/2023 Patient is lying in the bed. Awake alert and oriented. Right lower extremity i s currently Kennedy wrapped. Swelling is improving. Patient has been afebrile. No nausea or vomiting. Patient has very minimal oral intake otherwise. Cultures have been negative. Patient is being continued on antibiotics at home cefazolin. ID is on board. Lab data showed WBC 13.4 hemoglobin 10.3 and platelets 158 sodium 142 potassium 3.3 chloride 108 bicarb is 28.9 BUN 20.3 and creatinine 1.8 and blood sugar 181 and calcium 7.8. Liver enzymes showed AST went up to 117 ALT 58 alk phos 69 albumin 2.5. Urinalysis showed 2+ protein trace glucose trace ketones and WBCs 3. 09/20/2023 Patient is lying in the bed. Awake alert and oriented. Requiring 2 L oxygen via nasal cannula. No complaints of chest pain or shortness of breath. Otherwise patient is complaining of nausea and vomiting and also diarrhea with abdominal distention. Otherwise right lower extremity swelling and redness is improving. Currently on IV antibiotic in the home with Unasyn. ID is on board. CT of the abdomen pelvis was ordered. Laboratory data showed WBC 14.9 hemoglobin 11.9 platelets 207 Sodium 141 potassium 3.2 chloride 110 bicarb is 26 BUN 13 creatinine 1.33 and blood sugar 133. Calcium 8.3. 2D echocardiogram showed LVH with mildly reduced LV systolic function. RV enlargement. 09/21/2023 Patient is currently lying in the bed. Still complains of nausea and unable to tolerate any solid diet. Patient was able to drink water. Episode of vomiting. Denies any hematemesis. No fever no chills. Denies any abdominal pain. Otherwise right lower extremity swelling and redness is improving. Wound care is being done. Patient remains on antibiotics of cefazolin and vancomycin was added due to worsening leukocytosis. CT of the abdomen pelvis showed gastric distention with contrast passes into the proximal and mid small bowel. There is suggested eccentric wall thickening of the proximal duodenum. Underlying mass is not excluded. Direct visualization is recommended. Correlate for gastroparesis. No CT evidence for complete bowel obstruction. Hepatomegaly. Colonic diverticulosis. Cholelithiasis. Trace left and small right pleural effusions with partial atelectasis of the right lower lobe. Sequela of prior granulomatous disease. Lab data showed WBC 19.15 hemoglobin 11.7 and platelets 247 sodium 143 potassium 3.7 chloride 105 bicarb is 24 BUN 24.7 and creatinine 1.49 blood sugar 53 and calcium 8.2. 09/22/2023 Patient is lying in the bed. Awake alert but still complains of nausea and unable to take any oral intake. No diarrhea. No complaints of abdominal pain. Did not have bowel movement. Patient feels abdominal is distended/bloated. No complaints of chest pain or shortness of breath. Patient is currently on 2 L oxygen via nasal cannula. Laboratory data showed WBC remains the same at 19.3 hemoglobin 13.3 and platelets 255. Other laboratory data reviewed. Blood cultures have been negative so far. Patient antibiotics remains on antibiotics vancomycin and Unasyn. 09/23/2023 Patient is lying in the bed. Awake alert and oriented x 3. Patient states that he feels better today. Abdomen is less distended. Also still complaining of some right upper quadrant abdominal pain. No complaints of chest pain or shortness of breath. Encouraged with incentive spirometry. Patient denies any bowel meant last couple of days. Able to pass flatus. No fever or chills Otherwise right lower extremity wound is wrapped. No discharge noted. Continued on IV antibiotics Unasyn and vancomycin. ID is on board. X-ray of the abdomen was ordered to rule out obstruction. Laboratory data showed WBC improved to 15.2 hemoglobin 11.4 and platelets 243 sodium 136 potassium 3.0 chloride 104 bicarb is 25 BUN 13 creatinine 1.27 and calcium 7.7 total bili 2.4 AST 115 ALT 48 alk phos 138 and CRP 24.5. 09/24/2023 Patient is evaluated today on the medical floor in follow up. He is alert x 3 today. Having complaints of abdominal discomfort and left quadrant pain. Having multiple episodes of lose stool today. He had an abdominal xray completed revealing overall stable appearance of a dilated stomach, further discussed on recent CT exam. Fecal material and gas are demonstrated throughout the colon and rectum. Blood work today reveals white blood cell count of 13.75, hgb 11.9, sod ium of 136, BUN 30, creatinine 1.24. Patient has been continued on oral lasix and received an additional dose of IV lasix yesterday. He was given a fluid bolus and normal saline infusion due to low blood pressures. We will stop both lasix and fluids at this time and repeat blood work tomorrow. 09/25/2023 Patient is evaluated in follow-up in the medical floor he is more awake and alert. Patient does report improvement in his abdominal discomfort and he is less distended today. He has had 3 large soft bowel movement overnight. His blood work from today is unavailable at this time and has not yet been drawn. Patient was 114/70. He continues on 2 L of oxygen via nasal cannula. Patient was evaluated by GI services today. 09/26/2023 Patient is evaluated today in follow-up on the medical floor. He continues to report left lower quadrant abdominal pain however has decreased in intensity. Patient has had multiple bowel movements overnight and a C. difficile was ordered and checked and he was found to be positive. He has been started on oral vancomycin 250 mg 4 times a day with ID following closely. Additionally patient is continued on oral Augmentin for the right lower extremity cellulitis and chronic wound. We checked a shoulder x-ray on the left side shows no acute osseous abnormality. His sodium is 138, potassium 3.9, BUN 22, creatinine 1.18, calcium 7.8. Patient was scheduled to undergo EGD today which is now placed on hold. GI is following. 09/27/2023 Patient is seen in follow-up reports to feeling extremely agitated with multiple medical consultations following. Patient was n.p.o. as patient was scheduled to undergo EGD with GI. Patient refused reporting he cannot tolerate no diet and demanding to eat. Will attempt endoscopy on 09/28/2023. Patient continues with diarrhea maintained on C. difficile and reports continued abdominal pain. Patient with infectious disease following with lower extremity cellulitis along with C. difficile was continued on oral Augmentin and local wound care. Patient has been encouraged to increase activity as tolerated although has been refusing reporting he is not feeling well. Patient continuously makes comments about checking out of the hospital. Patient would be leaving AMA. 09/28. Patient seen and examined. Currently waiting on insurance authorization. 09/29. Patient seen and examined. No acute issues overnight. ID recommended completing 10-day course of oral vancomycin at discharge 10/01/2023 Patient is seen in follow-up today with multiple medical consultations following. Patient continues to be extremely agitated that he is still hospitalized and asking to go home and can been be transported to [facility] once insurance authorization is obtained. Case management/social work following working on discharge planning and currently awaiting. Patient has been refusing blood draws reporting he is tired of being poked and prodded and would just like to go home. Patient reports his abdominal pain is improved and diarrhea has improved. Patient is continued on oral vancomycin for C. difficile with in fectious disease following. Review of Systems Constitutional: Denied any fatigue denied any fever. Cardio vascular: denied any chest pain, palpitations Gastrointestinal: denied any nausea, vomiting, diarrhea. Reports abdominal pain. Pulmonary: Denied any shortness of breath cough Neurologic denied any new focal deficits, generalized weakness All inpatient medications were reviewed and appropriate changes in these medications as dictated in the interval history and assessment and plan PHYSICAL EXAMINATION: GENERAL: The patient is alert and oriented x3, frustrated and agitated. Well developed, well nourished. Morbidly obese HEENT: Pupils are round and equally reacting to light. EOMI. No scleral icterus. No conjunctival pallor. Normocephalic, atraumatic. No pharyngeal erythema. No thyromegaly. CARDIOVASCULAR: S1 and S2 present. No murmurs, rubs, or gallops. PULMONARY: Chest is clear to auscultation, no wheezing or crackles. ABDOMEN: Soft, obese nontender, distended, tympanic over the left quadrant. normoactive bowel sounds. No palpable organomegaly. MUSCULOSKELETAL: No joint swelling or deformity. EXTREMITIES: No cyanosis, clubbing, or pedal edema. NEUROLOGICAL: Gross neurological examination did not reveal any focal deficits. Diffusely weak SKIN: No rashes. Assessment Right lower extremity cellulitis with ruptured blister and superficial ulceration, present on admission Sepsis secondary to above Eccentric wall thickening of the proximal duodenum. Status post EGD showing mild gastritis and normal-appearing duodenum with no evidence of dissection or extrinsic compression Significant retained liquid and solid in the gastric fundus suggestive of diabetic gastroparesis and EGD C. difficile colitis patient was having multiple bowel movements which then stopped and now started again due to the bowel prep. Elevated liver enzymes, trending down Nausea vomiting abdominal pain and diarrhea. Improved. Macrocytic anemia Severe hypokalemia. Replaced. Chronic bilateral lower extremity swelling. Paroxysmal atrial fibrillation. Patient is currently in sinus rhythm. Not on anticoagulation. Elevated troponin level Elevated bilirubin level Increased pain to the left shoulder with previous dislocation and reduction back in 2019. No fractures noted Hypertension Hyperlipidemia Pilonidal cyst hx and patient has Stage II pressure injury right buttock, POA. Chronic back pain Morbid obesity BMI 44.8 GI and DVT prophylaxis with PPI and Lovenox subcu. Full code Plan: Patient will be continued on antibiotics with infectious disease following Blood cultures have been negative at this time Due to abnormal CT findings GI was consulted for possible EGD and scheduled to undergo endoscopy is now placed on hold due to positive C.Dif. Patient was scheduled to undergo EGD today although refusing to remain n.p.o. with possible EGD on 09/28/2023 Patient has been started on oral vancomycin 250 mg QID and will complete a short course on discharge Symptomatic management for nausea and vomiting and encourage oral intake. CT of the abdomen pelvis report as above. 2D echocardiogram showed LVH with mildly reduced LV systolic function. RV enlargement. Cardiology recommends medical management.. Resume oral lasix Continue with daily monitoring and follow-up closely. Prognosis is guarded. Discharge to [facility] pending insurance authorization possibly next 24-48 hours. Per case management/social work following, insurance authorization continues to be pending and has been pending since last week. Patient is becoming extremely agitated and asking to go home and then be transported to [facility] once insurance authorization is obtained. Discussed with the patient this is not an option and will need to remain hospitalized until insurance authorization is obtained or denied. Due to multiple complex medical issues, overall prognosis is guarded The impression and plan of care has been dictated by Rachele knapp, Nurse Practitioner as directed. Dr. Stefano MD I have performed a history and physical examination and medical decision making of this patient, discussed the same with the dictator, and agree with the dictators assessment and plan as written, documented as a scribe. Based on total visit time, I have performed more than 50% of this visit. Objective - Vital Signs Vital signs: Vital Signs Temp 98.4 F 10/01/23 07:18 Pulse 82 10/01/23 07:18 Resp 19 10/01/23 08:00 BP 105/66 10/01/23 07:18 Pulse Ox 91 L 10/01/23 07:18 FiO2 21 09/28/23 08:57 Intake & Output 09/30/23 10/01/23 10/01/23 18:59 06:59 18:59 Output Total 1750 825 Balance -1750 -825 Output: Urine 1750 825 Other: Voiding Method External Catheter External Catheter External Catheter - Labs CBC & Chem 7: 09/27/23 06:28 09/27/23 06:28
--- NOTE | 2023-10-01 18:08 | P.PN ---
Subjective Progress Note Date: 10/01/23 Principal diagnosis: Reason for follow-up is right lower extremity wound and cellulitis Patient is a 73-year-old male with a past medical history significant for hypertension hyperlipidemia atrial fibrillation chronic back pain patient presented to hospital with increasing swelling redness to the right leg with some blister formation along with nausea vomiting ID consulted concerning for the right lower extremity cellulitis. On today's evaluation that is 10/01/2023, Patient is afebrile patient is currently on room air and denies having any shortness of breath, the patient denies any chest pain or cough, the patient denies any nausea vomiting did not have any abdominal pain and no diarrhea patient mention feeling better currently waiting for placement No new lab has been obtained today Objective - Vital Signs Vital signs: Vital Signs Temp 98.4 F 10/01/23 07:18 Pulse 82 10/01/23 07:18 Resp 19 10/01/23 08:00 BP 105/66 10/01/23 07:18 Pulse Ox 91 L 10/01/23 07:18 FiO2 21 09/28/23 08:57 Intake & Output 09/30/23 10/01/23 10/01/23 18:59 06:59 18:59 Output Total 1750 825 Balance -1750 -825 Output: Urine 1750 825 Other: Voiding Method External Catheter External Catheter External Catheter - Exam GENERAL DESCRIPTION: An elderly male lying in bed in no distress RESPIRATORY SYSTEM: Unlabored breathing , decreased breath sounds at bases HEART: S1 S2 regular rate and rhythm , ABDOMEN: Soft , no tenderness EXTREMITIES: Bilateral legs are currently wrapped in Kennedy wrap - Labs CBC & Chem 7: 09/27/23 06:28 09/27/23 06:28 Assessment and Plan (1) Sepsis Current Visit: Yes Status: Acute Code(s): A41.9 - SEPSIS, UNSPECIFIED ORGANISM SNOMED Code(s): 60943253 (2) Leg wound, right Current Visit: Yes Status: Acute Code(s): S81.801A - UNSPECIFIED OPEN WOUND, RIGHT LOWER LEG, INITIAL ENCOUNTER SNOMED Code(s): 85069774432069386 (3) Cellulitis of right leg Current Visit: Yes Status: Acute Code(s): L03.115 - CELLULITIS OF RIGHT LOWER LIMB SNOMED Code(s): 57395852945152779 Plan: 1patient presented to hospital with sepsis in this patient who did have a diffuse swelling redness to bilateral extremity some superficial ulceration probably blister in this patient noted evidence of fluid overload likely representing a streptococcal cellulitis, clinically not behaving as MRSA or gram-negative infection. 2patient to continue with Aquacel silver dressing to the open wound followed by Kennedy wrap from just above the toe to below the knee change daily. 3patient did have CT of abdominal pelvis some thickening of the duodenum, radiology recommended direct visualization patient is status post EGD with evidence of gastritis no mention of any mass 4patient did have improvement to the right lower extremity cellulitis patient has received adequate IV and oral and by therapy for his right lower extremity cellulitis, patient overall resolution of his right lower extremity cellulitis continue local wound care with Aquacel silver dressing 5patient did have diarrhea, stool for C. difficile came back positive, the patient stool also growing Pseudomonas possible colonization no need for the specific antibiotic therapy towards positive stool culture with Pseudomonas 6-patient mention resolution of his diarrhea we will keep the patient on vancomycin to finish a 10-day course of therapy currently waiting for placement Dictation was produced using [employer] dictation software. please excuse any grammatical, word or spelling errors. Time with Patient: Less than 30
--- NOTE | 2023-10-01 18:08 | P.PN ---
Subjective Progress Note Date: 09/30/23 Principal diagnosis: Reason for follow-up is right lower extremity wound and cellulitis Patient is a 73-year-old male with a past medical history significant for hypertension hyperlipidemia atrial fibrillation chronic back pain patient presented to hospital with increasing swelling redness to the right leg with some blister formation along with nausea vomiting ID consulted concerning for the right lower extremity cellulitis. On today's evaluation that is 09/30/2023, the patient continues to be afebrile, the patient is on room air and breathing comfortably, the Pt denies having any chest pain or cough, the patient denies having any abdominal pain no vomiting or any diarrhea, denies pain to the right lower extremity. No new labs has been obtained today Objective - Vital Signs Vital signs: Vital Signs Temp 98.0 F 09/30/23 07:13 Pulse 68 09/30/23 07:13 Resp 18 09/30/23 09:10 BP 107/61 09/30/23 07:13 Pulse Ox 90 L 09/30/23 07:13 FiO2 21 09/28/23 08:57 Intake & Output 09/29/23 09/30/23 09/30/23 18:59 06:59 18:59 Output Total 700 850 Balance -700 -850 Output: Urine 700 850 Other: Voiding Method External Catheter External Catheter External Catheter - Exam GENERAL DESCRIPTION: An elderly male lying in bed in no distress RESPIRATORY SYSTEM: Unlabored breathing , decreased breath sounds at bases HEART: S1 S2 regular rate and rhythm , ABDOMEN: Soft , no tenderness EXTREMITIES: Bilateral legs are currently wrapped in Kennedy wrap - Labs CBC & Chem 7: 09/27/23 06:28 09/27/23 06:28 Assessment and Plan (1) Sepsis Current Visit: Yes Status: Acute Code(s): A41.9 - SEPSIS, UNSPECIFIED ORGANISM SNOMED Code(s): 33378973 (2) Leg wound, right Current Visit: Yes Status: Acute Code(s): S81.801A - UNSPECIFIED OPEN WOUND, RIGHT LOWER LEG, INITIAL ENCOUNTER SNOMED Code(s): 46944277335346364 (3) Cellulitis of right leg Current Visit: Yes Status: Acute Code(s): L03.115 - CELLULITIS OF RIGHT LOWER LIMB SNOMED Code(s): 08449803752999428 Plan: 1patient presented to hospital with sepsis in this patient who did have a diffuse swelling redness to bilateral extremity some superficial ulceration probably blister in this patient noted evidence of fluid overload likely representing a streptococcal cellulitis, clinically not behaving as MRSA or gram-negative infection. 2patient to continue with Aquacel silver dressing to the open wound followed by Kennedy wrap from just above the toe to below the knee change daily. 3patient did have CT of abdominal pelvis some thickening of the duodenum, radiology recommended direct visualization patient is status post EGD with evidence of gastritis no mention of any mass 4patient did have improvement to the right lower extremity cellulitis patient has received adequate IV and oral and by therapy for his right lower extremity cellulitis, patient overall resolution of his right lower extremity cellulitis continue local wound care with Aquacel silver dressing 5patient did have diarrhea, stool for C. difficile came back positive, the patient stool also growing Pseudomonas possible colonization no need for the specific antibiotic therapy towards positive stool culture with Pseudomonas 6-patient did have improvement in his diarrhea to continue oral vancomycin to finish a 10-day course of therapy for receipt of colitis, patient has been encouraged to increase his probiotic and yogurt intake Dictation was produced using [employer] dictation software. please excuse any grammatical, word or spelling errors. Time with Patient: Less than 30
[2023-10-02 08:39] VITALS: TEMP 98.6
--- NOTE | 2023-10-02 12:48 | P.DS ---
Providers Date of admission: 09/17/23 18:02 Expected date of discharge: 10/02/23 Attending physician: Jules Agarwal Consults: 09/18/23 11:27 Consult Physician Routine Consulting Provider: Julieta Shields Consult Reason/Comments: right lower extremity cellulitis with open wounds Do you want consulting provider notified?: Yes 09/18/23 14:20 Consult Physician Routine Consulting Provider: Darvin Nj Consult Reason/Comments: Elevated troponin Do you want consulting provider notified?: Yes 09/22/23 16:11 Consult Physician Routine Consulting Provider: Valorie Sharp Consult Reason/Comments: Abnormal CT with thickening of the jejunum need for EGD Do you want consulting provider notified?: Yes Primary care physician: Elvira Wei Hospital Course: Final diagnosis Right lower extremity cellulitis with ruptured blister and superficial ulceration, present on admission Sepsis secondary to above Eccentric wall thickening of the proximal duodenum. Status post EGD showing m ild gastritis and normal-appearing duodenum with no evidence of dissection or extrinsic compression Significant retained liquid and solid in the gastric fundus suggestive of diabetic gastroparesis and EGD C. difficile colitis patient was having multiple bowel movements which then stopped and now started again due to the bowel prep. Elevated liver enzymes, trending down Nausea vomiting abdominal pain and diarrhea. Improved. Macrocytic anemia Severe hypokalemia. Replaced. Chronic bilateral lower extremity swelling. Paroxysmal atrial fibrillation. Patient is currently in sinus rhythm. Not on anticoagulation. Elevated troponin level Elevated bilirubin level Increased pain to the left shoulder with previous dislocation and reduction back in 2019. No fractures noted Hypertension, currently normotensive Hyperlipidemia Pilonidal cyst hx and patient has Stage II pressure injury right buttock, POA. Chronic back pain Morbid obesity BMI 44.8 GI and DVT prophylaxis with PPI and Lovenox subcu. Discharge disposition Patient is being discharged in a stable condition with guarded prognosis to [facility]. Patient will continue on oral vancomycin 4 times daily for the next 10 days and outpatient follow-up with the wound care center and infectious disease. Patient to follow-up with primary care provider Dr. Wei in the outpatient setting. Patient also to follow-up with GI Dr. Sharp for biopsy results. Total time taken is greater than 35 minutes. Hospital course This is a 73-year-old male who was recently admitted with increased bilateral lower extremity worse on the right with concerns of cellulitis and a ruptured blister with superficial ulcerations being closely monitored. Patient also with sepsis secondary to this on admission and admitted with infectious disease and wound care consultation. Patient with significant abdominal pain and noted to have multiple episodes of diarrhea that initially improved although patient underwent a bowel prep for possible EGD/colonoscopy and started experiencing increased episodes of diarrhea with multiple loose stools was tested positive for C. difficile and patient had been maintained on antibiotics. Patient is currently on oral vancomycin and will continue for a 10-day course. Patient to continue with local wound care of the lower extremities with Aquacel dressing every 72 hours to the open wound right lower extremity and followed by Kennedy wraps to both lower extremities from the toes up to the knees. Continue to elevate lower extremities while at rest. Patient will need outpatient follow-up with infectious disease along with GI and wound care in the outpatient setting. Patient has been cleared by consultations for discharge. Please refer to consultation notes for further HPI. Currently no reports of chest pain, shortness of breath, or palpitations. Patient is afebrile. No reports of nausea or vomiting and patient is tolerating diet. Patient will be going to [facility] on the today. Guarded prognosis and high risk for readmissions given significant comorbidities. 10/02/2023 Patient insurance requesting peer to peer and has approved [facility] Patient has been accepted at [facility] and will be discharged today. Patient to continue a 10-day course of vancomycin oral 4 times daily per ID recommendations for C. difficile. Patient to follow-up with GI outpatient as well as continue local wound care. Patient has been cleared by consultations for discharge. Patient will be going to [facility] on Physical exam: Gen: This is a 73-year-old male who is awake, alert and oriented x 3, well- developed, well-nourished, morbidly obese HEENT: Head is atraumatic, normocephalic. Pupils equal, round. Sclerae is anicteric. NECK: Supple. No JVD. No lymphadenopathy. No thyromegaly. LUNGS: Diminished breath sounds bilaterally otherwise clear to auscultation. No wheezes or rhonchi. No intercostal retractions. HEART: S1, S2 are muffled ABDOMEN: Soft. Obese, tender on palpation bowel sounds are present. No masses. EXTREMITIES: No pedal edema. No calf tenderness. Bilateral lower extremity edema noted Although improved NEUROLOGICAL: Patient is awake, alert and oriented x3. Cranial nerves 2 through 12 are grossly intact. Diffusely weak Please refer to medication reconciliation sheet for a list of medications. The impression and plan of care has been dictated by Rachele Lau, Nurse Practitioner as directed. Dr. Stefano MD I have performed a history and examination and MDM of this patient, discussed the same with the dictator, and agree with the dictator's assessment and plan as written ,documented as a scribe. Based on total visit time, I have performed more than 50% of the visit. Patient Condition at Discharge: Fair Plan - Discharge Summary New Discharge Prescriptions: New Ipratropium-Albuterol Nebulize [Duoneb 0.5 mg-3 mg/3 ml Soln] 3 ml INHALATION RT-QID each HYDROcodone/APAP 7.5-325MG [[place] 7.5-325] 1 each PO Q4H PRN #6 tab PRN Reason: Pain Pantoprazole Sodium [Protonix] 40 mg PO DAILY #30 tab Vancomycin HCl [Vancocin HCl] 250 mg PO QID 10 Days #40 cap Albuterol Nebulized [Ventolin Nebulized] 2.5 mg INHALATION RT-QID PRN ml PRN Reason: Shortness Of Breath Or Wheezing Fluticasone Nasal [place] [Flonase Nasal [place]] 2 spray EA NOSTRIL DAILY PRN ml PRN Reason: Allergy Symptoms Furosemide [Lasix] 40 mg PO BID@0900,1600 tab Enoxaparin [Lovenox] 40 mg SQ DAILY each Continue Atorvastatin [Lipitor] 40 mg PO HS tiZANidine [Zanaflex] 8 mg PO HS tiZANidine [Zanaflex] 4 mg PO BID@0900,1200 Acetaminophen [Tylenol Extra Strength] 1,000 mg PO TID Aspirin EC [Ecotrin Low Dose] 81 mg PO DAILY Changed Metoprolol Tartrate [Lopressor] 25 mg PO BID #60 Discontinued Furosemide [Lasix] 40 mg PO BID HYDROcodone/APAP 5-325MG [[place] 5-325] 1 tab PO BID Discharge Medication List Atorvastatin [Lipitor] 40 mg PO HS 05/20/19 [History] tiZANidine [Zanaflex] 4 mg PO BID@0900,1200 05/20/19 [History] tiZANidine [Zanaflex] 8 mg PO HS 05/20/19 [History] Acetaminophen [Tylenol Extra Strength] 1,000 mg PO TID 09/17/23 [History] Aspirin EC [Ecotrin Low Dose] 81 mg PO DAILY 09/17/23 [History] Albuterol Nebulized [Ventolin Nebulized] 2.5 mg INHALATION RT-QID PRN ml 09/28/23 [Rx] Enoxaparin [Lovenox] 40 mg SQ DAILY each 09/28/23 [Rx] Fluticasone Nasal [place] [Flonase Nasal [place]] 2 spray EA NOSTRIL DAILY PRN ml 09/28/23 [Rx] Furosemide [Lasix] 40 mg PO BID@0900,1600 tab 09/28/23 [Rx] HYDROcodone/APAP 7.5-325MG [[place] 7.5-325] 1 each PO Q4H PRN #6 tab 09/28/23 [Rx] Ipratropium-Albuterol Nebulize [Duoneb 0.5 mg-3 mg/3 ml Soln] 3 ml INHALATION RT-QID each 09/28/23 [Rx] Pantoprazole Sodium [Protonix] 40 mg PO DAILY #30 tab 09/28/23 [Rx] Vancomycin HCl [Vancocin HCl] 250 mg PO QID 10 Days #40 cap 09/28/23 [Rx] Metoprolol Tartrate [Lopressor] 25 mg PO BID #60 10/02/23 [Rx] Follow up Appointment(s)/Referral(s): Valorie Sharp MD [STAFF PHYSICIAN] - 2 Weeks [facility], [NON-STAFF] - As Needed Elvira Wei MD [Primary Care Provider] - 1-2 days Activity/Diet/Wound Care/Special Instructions: Patient is going to [facility] Activity as tolerated Continue with oral antibiotics in the form of Vanco 4 times daily for the next 10 days Follow-up on repeat CBC, CMP, magnesium in 2 to 3 days Continue taking medications as prescribed Patient to follow-up with GI outpatient Follow-up with cardiology outpatient Continue with local wound care to the lower extremities and elevating lower extremities while at rest Continue frequent position changes every 2 hours and offloading Continue regular diet Discharge Disposition: TRANSFER TO SNF/ECF
[2023-10-02 15:03] VITALS: BP 102/70; PULSE 76; RESP 16
--- NOTE | 2023-10-02 17:02 | P.PN ---
Subjective Progress Note Date: 10/02/23 Principal diagnosis: Reason for follow-up is right lower extremity wound and cellulitis Patient is a 73-year-old male with a past medical history significant for hypertension hyperlipidemia atrial fibrillation chronic back pain patient presented to hospital with increasing swelling redness to the right leg with some blister formation along with nausea vomiting ID consulted concerning for the right lower extremity cellulitis. On today's evaluation that is 10/02/2023, patient has been afebrile, patient is breathing comfortably and is currently on room air, patient denies having any significant cough no chest pain shortness of breath, patient denies nausea vomiting did have resolution of diarrhea mention no bowel movement for the last 3 days and no worsening pain to the lower extremity No new labs obtained today Objective - Vital Signs Vital signs: Vital Signs Temp 98.6 F 10/02/23 07:30 Pulse 76 10/02/23 14:30 Resp 16 10/02/23 14:30 BP 102/70 10/02/23 14:30 Pulse Ox 89 L 10/02/23 14:30 FiO2 21 09/28/23 08:57 Intake & Output 10/01/23 10/02/23 10/02/23 18:59 06:59 18:59 Output Total 6621 770 6802 Balance -1150 -750 -1100 Output: Urine 4537 629 3370 Other: Voiding Method External Catheter - Exam GENERAL DESCRIPTION: An elderly male lying in bed in no distress RESPIRATORY SYSTEM: Unlabored breathing , decreased breath sounds at bases HEART: S1 S2 regular rate and rhythm , ABDOMEN: Soft , no tenderness EXTREMITIES: Bilateral legs are currently wrapped in Kennedy wrap - Labs CBC & Chem 7: 09/27/23 06:28 09/27/23 06:28 Assessment and Plan (1) Sepsis Current Visit: Yes Status: Acute Code(s): A41.9 - SEPSIS, UNSPECIFIED ORGANISM SNOMED Code(s): 80642705 (2) Leg wound, right Current Visit: Yes Status: Acute Code(s): S81.801A - UNSPECIFIED OPEN WOUND, RIGHT LOWER LEG, INITIAL ENCOUNTER SNOMED Code(s): 66701926000126193 (3) Cellulitis of right leg Current Visit: Yes Status: Acute Code(s): L03.115 - CELLULITIS OF RIGHT LOWER LIMB SNOMED Code(s): 92794268858719572 Plan: 1patient presented to hospital with sepsis in this patient who did have a diffuse swelling redness to bilateral extremity some superficial ulceration probably blister in this patient noted evidence of fluid overload likely representing a streptococcal cellulitis, clinically not behaving as MRSA or gram-negative infection. 2patient to continue with Aquacel silver dressing to the open wound followed by Kennedy wrap from just above the toe to below the knee change daily. 3patient did have CT of abdominal pelvis some thickening of the duodenum, radiology recommended direct visualization patient is status post EGD with evidence of gastritis no mention of any mass 4patient did have improvement to the right lower extremity cellulitis patient has received adequate IV and oral and by therapy for his right lower extremity cellulitis, patient overall resolution of his right lower extremity cellulitis continue local wound care with Aquacel silver dressing 5patient did have diarrhea, stool for C. difficile came back positive, the patient stool also growing Pseudomonas possible colonization no need for the specific antibiotic therapy towards positive stool culture with Pseudomonas, patient mention improvement in diarrhea with resolution he will continue with the vancomycin to finish his 10-day course of therapy Dictation was produced using [employer] dictation software. please excuse any grammatical, word or spelling errors. Time with Patient: Less than 30
== END 2023-10-02 18:25 | DRG 872 ==
LOC: EC 15:49 → 4SSUR 18:02
PROVIDERS: ADMIT Hospitalist; ATTEND Hospitalist
PROC: 0DB78ZX Excision of Stomach, Pylorus, Via Natural or Artificial Opening Endoscopic, Diagnostic (ICD-10-PCS; principal; 2023-09-28 07:30)
DX: A41.9 Sepsis, unspecified organism (principal); A04.72 Enterocolitis due to Clostridium difficile, not specified as recurrent; I45.2 Bifascicular block; I50.32 Chronic diastolic (congestive) heart failure; L03.115 Cellulitis of right lower limb; L03.116 Cellulitis of left lower limb; Z68.41 Body mass index [BMI] 40.0-44.9, adult; N17.9 Acute kidney failure, unspecified; D53.9 Nutritional anemia, unspecified; E66.01 Morbid (severe) obesity due to excess calories; E11.9 Type 2 diabetes mellitus without complications; E78.5 Hyperlipidemia, unspecified; L89.312 Pressure ulcer of right buttock, stage 2; I95.9 Hypotension, unspecified; E11.43 Type 2 diabetes mellitus with diabetic autonomic (poly)neuropathy; I11.0 Hypertensive heart disease with heart failure; E86.0 Dehydration; F32.A Depression, unspecified; E87.6 Hypokalemia; G89.29 Other chronic pain; R79.89 Other specified abnormal findings of blood chemistry; K31.84 Gastroparesis; I48.0 Paroxysmal atrial fibrillation; R45.1 Restlessness and agitation; K29.70 Gastritis, unspecified, without bleeding; M25.512 Pain in left shoulder; K31.89 Other diseases of stomach and duodenum; K57.30 Diverticulosis of large intestine without perforation or abscess without bleeding; K59.00 Constipation, unspecified; K80.20 Calculus of gallbladder without cholecystitis without obstruction; L05.91 Pilonidal cyst without abscess; Z79.82 Long term (current) use of aspirin; Z79.899 Other long term (current) drug therapy; Z79.891 Long term (current) use of opiate analgesic
CPT/HCPCS: 36410; 36415; 43239; 71045; 74019; 74176; 76705; 76937; 80048; 80053; 81001; 82607; 82747; 83605; 83690; 83735; 83880; 84100; 84132; 84484; 85025; 85610; 85730; 86140; 87040; 87045; 87046; 87324; 88305; 93005; 93306; 94640; 94760; 96361; 96365; 96368; 96375; 99285

== ENCOUNTER 2023-10-16 02:16 | Inpatient (IN) | payer MEDICARE, OTHER ==
[2023-10-16 02:25] LABS: Glucose,Whole Blood 137 mg/dL (70-110)
[2023-10-16] MEDS ORDERED: VANCOMYCIN IV PER PHARMACY 1 EACH MISC MISCELLANE PRN (02:25)
[2023-10-16] MEDS: SODIUM CHLORIDE 0.9% 1,000 ML IV SCH (02:28)
--- NOTE | 2023-10-16 02:30 | ED ---
General Adult HPI - General Chief complaint: Shortness of Breath Stated complaint: Tachycardia Time Seen by Provider: 10/16/23 02:19 Source: family, EMS, RN notes reviewed, old records reviewed Mode of arrival: EMS Limitations: altered mental status - History of Present Illness Initial comments: 73-year-old male presenting from the longterm and extremis, patient was noted to be tachycardic which is wide-complex and thought to be in ventricular tachycardia. He was cardioverted by paramedics due to hypotension. Patient has history of atrial fibrillation which is wide-complex from right bundle branch block. Patient was noted to be febrile and hypotensive. He is altered with snoring respirations. According to the paperwork from the longterm and from his family friend he is a full code. History Quite limited. - Related Data Home Medications Medication Instructions Recorded Confirmed Atorvastatin [Lipitor] 40 mg PO HS 05/20/19 09/17/23 tiZANidine [Zanaflex] 4 mg PO BID@0900,1200 05/20/19 09/17/23 tiZANidine [Zanaflex] 8 mg PO HS 05/20/19 09/17/23 Acetaminophen [Tylenol Extra 1,000 mg PO TID 09/17/23 09/17/23 Strength] Aspirin EC [Ecotrin Low Dose] 81 mg PO DAILY 09/17/23 09/17/23 Previous Rx's Medication Instructions Recorded Albuterol Nebulized [Ventolin 2.5 mg INHALATION RT-QID PRN ml 09/28/23 Nebulized] Enoxaparin [Lovenox] 40 mg SQ DAILY each 09/28/23 Fluticasone Nasal [place] [Flonase 2 spray EA NOSTRIL DAILY PRN ml 09/28/23 Nasal [place]] Furosemide [Lasix] 40 mg PO BID@0900,1600 tab 09/28/23 HYDROcodone/APAP 7.5-325MG [[place] 1 each PO Q4H PRN #6 tab 09/28/23 7.5-325] Ipratropium-Albuterol Nebulize 3 ml INHALATION RT-QID each 09/28/23 [Duoneb 0.5 mg-3 mg/3 ml Soln] Pantoprazole Sodium [Protonix] 40 mg PO DAILY #30 tab 09/28/23 Vancomycin HCl [Vancocin HCl] 250 mg PO QID 10 Days #40 cap 09/28/23 Metoprolol Tartrate [Lopressor] 25 mg PO BID #60 10/02/23 Allergies Allergy/AdvReac Type Severity Reaction Status Date / Time No Known Allergies Allergy Verified 10/16/23 02:26 Review of Systems ROS Statement: Those systems with pertinent positive or pertinent negative responses have been documented in the HPI. ROS Other: All systems not noted in ROS Statement are negative. Past Medical History Past Medical History: Atrial Fibrillation, Hyperlipidemia, Hypertension Additional Past Medical History / Comment(s): chronic back pain, four buldging discs to back History of Any Multi-Drug Resistant Organisms: None Reported Past Surgical History: Heart Catheterization, Orthopedic Surgery Additional Past Surgical History / Comment(s): right knee sx Past Psychological History: No Psychological Hx Reported Smoking Status: Never smoker General Exam General appearance: obtunded, in distress Head exam: Present: atraumatic, normocephalic ENT exam: Present: mucous membranes dry Respiratory exam: Present: respiratory distress, rhonchi, decreased breath sounds Cardiovascular Exam: Present: tachycardia, irregular rhythm GI/Abdominal exam: Present: soft. Absent: distended, tenderness, guarding Neurological exam: Absent: alert Skin exam: Present: warm, dry Course Vital Signs 10/16/23 10/16/23 10/16/23 02:18 03:00 03:31 Temperature 103.4 F H Pulse Rate 130 H 190 H 112 H Respiratory 20 24 Rate Blood Pressure 72/36 85/65 94/22 Blood Pressure [Left Radial Artery] O2 Sat by Pulse 86 L 97 98 Oximetry 10/16/23 10/16/23 10/16/23 03:34 03:45 04:00 Temperature 100.7 F H Pulse Rate 107 H Respiratory 24 22 36 H Rate Blood Pressure 187/60 Blood Pressure 165/79 [Left Radial Artery] O2 Sat by Pulse 94 L 96 Oximetry 10/16/23 10/16/23 10/16/23 04:30 04:45 05:00 Temperature Pulse Rate 105 H 102 H 165 H Respiratory 40 H 41 H 43 H Rate Blood Pressure 144/51 188/122 Blood Pressure [Left Radial Artery] O2 Sat by Pulse 97 98 97 Oximetry Medical Decision Making - Medical Decision Making Was pt. sent in by a medical professional or institution (, PA, TRACK WELDER, urgent care, hospital, or longterm...) When possible be specific @ -No Did you speak to anyone other than the patient for history (EMS, parent, family, police, friend...)? What history was obtained from this source @ -No Did you review nursing and triage notes (agree or disagree)? Why? @ -I reviewed and agree with nursing and triage notes Were old charts reviewed (outside hosp., previous admission, EMS record, old EKG, old radiological studies, urgent care reports/EKG's, longterm records)? Report findings @ -No old charts were reviewed Differential Fever: Pneumonia, viral URI, endocarditis, myocarditis, pericarditis, otitis, sinusitis, peritonsillar Abscess, retropharyngeal Abscess, epiglottitis, peritonitis, appendicitis, Ad[place] cystitis, diverticulitis, hepatitis, colitis, UTI, PID, TOA, pyelonephritis, prostatitis, epididymitis, meningitis, encephalitis, pulmonary embolism, CVA, thyroid storm, pancreatitis, adrenal crisis, cavernous sinus thrombosis, this is not meant to be an all-inclusive list. EKG interpreted by me (3pts min.). @ -Atrial fibrillation with a rate of 132, QRS duration 158, QTc 515, right bundle branch block X-rays interpreted by me (1pt min.). @ -[X-ray is rotated, poor quality but does not show consolidated pneumonia or pneumothorax CT interpreted by me (1pt min.). @ -None done U/S interpreted by me (1pt. min.). @ -None done What testing was considered but not performed or refused? (CT, X-rays, U/S, labs)? Why? @ -None What meds were considered but not given or refused? Why? @ -None Did you discuss the management of the patient with other professionals (professionals i.e. , PA, TRACK WELDER, lab, RT, psych nurse, social work associate, family helper, teacher, founder and chief executive officer, supervisor case loading)? Give summary @ -[yes, EMErrol Mantilla TRACK WELDER for critical care. Discussed with Dr. Sharp, Covering for cardiology Was smoking cessation discussed for >3mins.? @ -No Was critical care preformed (if so, how long)? @ -Yes, 35 minutes Were there social determinants of health that impacted care today? How? (Homelessness, low income, unemployed, alcoholism, drug addiction, transpo rtation, low edu. Level, literacy, decrease access to med. care, halfway, rehab)? @ -No Was there de-escalation of care discussed even if they declined (Discuss DNR or withdrawal of care, Hospice)? DNR status @ -No What co-morbidities impacted this encounter? (DM, HTN, Smoking, COPD, CAD, Cancer, CVA, ARF, Chemo, Hep., AIDS, mental health diagnosis, sleep apnea, morbid obesity)? @Atrial fibrillation, debility Was patient admitted / discharged? Hospital course, mention meds given and route, prescriptions, significant lab abnormalities, going to OR and other pertinent info. @ 73-year-old male presenting an extremis, altered, febrile, hypotensive in a rapid atrial fibrillation which required cardioversion during transport. Patient treatment is initiated with antibiotics, fluids. During the initial assessment and treatment of this patient he did develop rapid atrial fibrillation nearing 200 which required synchronized cardioversion. Patient maintained his respiratory rate and pulses during this. After cardioversion patient started on amiodarone for rate control. Given IV fluid boluses and started on maintenance IV fluids. Started on Zosyn and vancomycin for treatment of sepsis without a definitive source at this time. There was a short period of time where this patient required vasopressors but after rate control his blood pressure did normalize. Patient has significant laboratory abnormalities predominantly electrolyte abnormalities with hypokalemia, hypocalcemia, mag le martin is pending. Patient is given potassium and calcium replacement. He will be admitted to the ICU in critical condition. Undiagnosed new problem with uncertain prognosis? @ -No Drug Therapy requiring intensive monitoring for toxicity (Heparin, Nitro, Insulin, Cardizem)? @ -No Were any procedures done? @ -Yes, synchronized cardioversion Diagnosis/symptom? @ -Septic shock, unstable atrial fibrillation with RVR Acute, or Chronic, or Acute on Chronic? @Acute Uncomplicated (without systemic symptoms) or Complicated (systemic symptoms)? @Complicated Side effects of treatment? @ -No Exacerbation, Progression, or Severe Exacerbation? @ -No Poses a threat to life or bodily function? How? (Chest pain, [place], [place], pneumonia, PE, COPD, DKA, ARF, appy, cholecystitis, CVA, Diverticulitis, Homicidal, Suicidal, threat to staff... and all critical care pts) @ -[Yes, unstable atrial fibrillation with RVR, septic shock, poor prognosis - Lab Data Result diagrams: 10/16/23 03:57 10/16/23 06:00 Lab Results 10/16/23 10/16/23 10/16/23 Range/Units 02:24 03:57 03:57 WBC 12.2 H (3.8-10.6) k/uL RBC 3.19 L (4.30-5.90) m/uL Hgb 10.4 L D (13.0-17.5) gm/dL Hct 31.2 L (39.0-53.0) % MCV 98.0 (80.0-100.0) fL MCH 32.6 (25.0-35.0) pg MCHC 33.2 (31.0-37.0) g/dL RDW 14.7 (11.5-15.5) % Plt Count 225 (150-450) k/uL MPV 7.9 Neutrophils % 81 % Lymphocytes % 2 % Monocytes % 16 % Eosinophils % 0 % Basophils % 0 % Neutrophils # 9.9 H (1.3-7.7) k/uL Lymphocytes # 0.3 L (1.0-4.8) k/uL Monocytes # 1.9 H (0-1.0) k/uL Eosinophils # 0.0 (0-0.7) k/uL Basophils # 0.0 (0-0.2) k/uL Poikilocytosis Slight PT 24.6 H (10.0-12.5) sec INR 2.5 H (<1.2) APTT 39.1 H (22.0-30.0) sec Sodium (137-145) mmol/L Potassium (3.5-5.1) mmol/L Chloride (98-107) mmol/L Carbon Dioxide (22-30) mmol/L Anion Gap mmol/L BUN (9-20) mg/dL Creatinine (0.66-1.25) mg/dL Est GFR (CKD-EPI)AfAm (>60 ml/min/1.73 sqM) Est GFR (CKD-EPI)NonAf (>60 ml/min/1.73 sqM) Glucose (74-99) mg/dL POC Glucose (mg/dL) 137 H (70-110) mg/dL POC Glu [employer] ID Ramirez, Trudy Lactic Ac Sepsis Rflx Plasma Lactic Acid Jonathan (0.7-2.0) mmol/L Calcium (8.4-10.2) mg/dL Magnesium (1.6-2.3) mg/dL Total Bilirubin (0.2-1.3) mg/dL AST (17-59) U/L ALT (4-49) U/L Alkaline Phosphatase (38-126) U/L Total Protein (6.3-8.2) g/dL Albumin (3.5-5.0) g/dL 10/16/23 10/16/23 10/16/23 Range/Units 03:57 03:57 03:57 WBC (3.8-10.6) k/uL RBC (4.30-5.90) m/uL Hgb (13.0-17.5) gm/dL Hct (39.0-53.0) % MCV (80.0-100.0) fL MCH (25.0-35.0) pg MCHC (31.0-37.0) g/dL RDW (11.5-15.5) % Plt Count (150-450) k/uL MPV Neutrophils % % Lymphocytes % % Monocytes % % Eosinophils % % Basophils % % Neutrophils # (1.3-7.7) k/uL Lymphocytes # (1.0-4.8) k/uL Monocytes # (0-1.0) k/uL Eosinophils # (0-0.7) k/uL Basophils # (0-0.2) k/uL Poikilocytosis PT (10.0-12.5) sec INR (<1.2) APTT (22.0-30.0) sec Sodium 140 (137-145) mmol/L Potassium 2.9 L (3.5-5.1) mmol/L Chloride 112 H (98-107) mmol/L Carbon Dioxide 18 L (22-30) mmol/L Anion Gap 10 mmol/L BUN 27 H (9-20) mg/dL Creatinine 1.02 (0.66-1.25) mg/dL Est GFR (CKD-EPI)AfAm 84 (>60 ml/min/1.73 sqM) Est GFR (CKD-EPI)NonAf 72 (>60 ml/min/1.73 sqM) Glucose 108 H (74-99) mg/dL POC Glucose (mg/dL) (70-110) mg/dL POC Glu [employer] ID Lactic Ac Sepsis Rflx Plasma Lactic Acid Jonathan 3.0 H* (0.7-2.0) mmol/L Calcium 5.5 L* (8.4-10.2) mg/dL Magnesium 1.2 L (1.6-2.3) mg/dL Total Bilirubin 1.7 H (0.2-1.3) mg/dL AST 26 (17-59) U/L ALT 11 (4-49) U/L Alkaline Phosphatase 31 L (38-126) U/L Total Protein 4.0 L (6.3-8.2) g/dL Albumin 1.6 L (3.5-5.0) g/dL 10/16/23 Range/Units 04:34 WBC (3.8-10.6) k/uL RBC (4.30-5.90) m/uL Hgb (13.0-17.5) gm/dL Hct (39.0-53.0) % MCV (80.0-100.0) fL MCH (25.0-35.0) pg MCHC (31.0-37.0) g/dL RDW (11.5-15.5) % Plt Count (150-450) k/uL MPV Neutrophils % % Lymphocytes % % Monocytes % % Eosinophils % % Basophils % % Neutrophils # (1.3-7.7) k/uL Lymphocytes # (1.0-4.8) k/uL Monocytes # (0-1.0) k/uL Eosinophils # (0-0.7) k/uL Basophils # (0-0.2) k/uL Poikilocytosis PT (10.0-12.5) sec INR (<1.2) APTT (22.0-30.0) sec Sodium (137-145) mmol/L Potassium (3.5-5.1) mmol/L Chloride (98-107) mmol/L Carbon Dioxide (22-30) mmol/L Anion Gap mmol/L BUN (9-20) mg/dL Creatinine (0.66-1.25) mg/dL Est GFR (CKD-EPI)AfAm (>60 ml/min/1.73 sqM) Est GFR (CKD-EPI)NonAf (>60 ml/min/1.73 sqM) Glucose (74-99) mg/dL POC Glucose (mg/dL) (70-110) mg/dL POC Glu [employer] ID Lactic Ac Sepsis Rflx Y Plasma Lactic Acid Jonathan (0.7-2.0) mmol/L Calcium (8.4-10.2) mg/dL Magnesium (1.6-2.3) mg/dL Total Bilirubin (0.2-1.3) mg/dL AST (17-59) U/L ALT (4-49) U/L Alkaline Phosphatase (38-126) U/L Total Protein (6.3-8.2) g/dL Albumin (3.5-5.0) g/dL Critical Care Time Critical Care Time: Yes Total Critical Care Time: 35 Disposition Clinical Impression: Sepsis, Cellulitis of right leg, Atrial fibrillation with RVR Disposition: ADMITTED IP TO THIS HOSP Condition: Serious Is patient prescribed a controlled substance at d/c from ED?: No Time of Disposition: 04:05
[2023-10-16] MEDS: SODIUM CHLORIDE 0.9% 500 ML 500 ML IV SCH (02:42)
[2023-10-16] MEDS: PIPERACILLIN-TAZOBACTAM 3.375 GM in SODIUM CHLORIDE 0.9% 100 ML IVPB STA (02:43)
[2023-10-16] MEDS: MIDAZOLAM 2 MG/2 ML VIAL IV ONE (02:55)
[2023-10-16] MEDS: ACETAMINOPHEN IV (For NPO) 1,000 MG in EMPTY BAG 1 BAG IVPB STA (02:58)
[2023-10-16] MEDS: NOREPINEPHRINE 4 MG in SODIUM CHLORIDE 0.9% 250 ML IV SCH (03:05)
[2023-10-16] MEDS: DEXTROSE 5% IN WATER 100 ML with AMIODARONE 150 MG IV ONE (03:10)
[2023-10-16] MEDS: AMIODARONE 360 MG in DEXTROSE 5% IN WATER 200 ML IV ONE (03:23)
[2023-10-16] MEDS: VANCOMYCIN 2,500 MG in SODIUM CHLORIDE 0.9% 500 ML 500 ML IVPB ONE (03:42)
[2023-10-16 04:14] LABS: Basophils % (A) 0 %; Eosinophils % (A) 0 %; HCT 31.2 % (39.0-53.0); Lymphocytes # (A) 0.3 k/uL (1.0-4.8); Lymphocytes % (A) 2 %; MCH 32.6 pg (25.0-35.0); MCHC 33.2 g/dL (31.0-37.0); Mean Platelet Volume 7.9; Monocytes # (A) 1.9 k/uL (0-1.0); Monocytes % (A) 16 %; Neutrophils # (A) 9.9 k/uL (1.3-7.7); Neutrophils % (A) 81 %; Platelet Count 225 k/uL (150-450); Poikilocytosis Slight; RBC 3.19 m/uL (4.30-5.90); RDW 14.7 % (11.5-15.5); WBC 12.2 k/uL (3.8-10.6)
[2023-10-16 04:25] LABS: ALT 11 U/L (4-49); AST 26 U/L (17-59); African American GFR (CKD) 84 (>60 ml/min/1.73 sqM); Albumin 1.6 g/dL (3.5-5.0); Alkaline Phosphatase 31 U/L (38-126); Anion Gap 10 mmol/L; Blood Urea Nitrogen 27 mg/dL (9-20); Carbon Dioxide 18 mmol/L (22-30); Chloride 112 mmol/L (98-107); Glucose 108 mg/dL (74-99); Non-African American GFR(CKD) 72 (>60 ml/min/1.73 sqM); Potassium 2.9 mmol/L (3.5-5.1); Sodium 140 mmol/L (137-145); Total Bilirubin 1.7 mg/dL (0.2-1.3)
[2023-10-16 04:33] LABS: Calcium 5.5 mg/dL (8.4-10.2)
[2023-10-16] MEDS ORDERED: ACETAMINOPHEN TAB 325 MG TAB PO PRN (04:36)
[2023-10-16] MEDS ORDERED: NALOXONE 0.4 MG/ML 1 ML VIAL IV PRN (04:36)
[2023-10-16 04:37] LABS: HGB 10.4 gm/dL (13.0-17.5)
[2023-10-16] MEDS: POTASSIUM CHLORIDE 10 MEQ in WATER FOR INJECTION 1 100ML.BAG IVPB SCH (04:51)
[2023-10-16] MEDS: CALCIUM GLUCONATE IN NACL 2 GM in SALINE 1 100ML.BAG IVPB ONE (04:59)
[2023-10-16 05:00] LABS: INR 2.5 (<1.2)
[2023-10-16 05:01] LABS: Partial Thromboplastin Time 39.1 sec (22.0-30.0); Prothrombin Time 24.6 sec (10.0-12.5)
[2023-10-16] MEDS: propofoL 100 ML IV ONE (05:15)
[2023-10-16 05:19] LABS: Glucose,Whole Blood 122 mg/dL (70-110)
--- NOTE | 2023-10-16 05:36 | XR ---
EXAM: XR Chest, 1 View CLINICAL HISTORY: Fever TECHNIQUE: Frontal view of the chest. COMPARISON: 09/23/23 FINDINGS: Lungs: Underdistended but clear. Pleural space: Unremarkable. Mediastinum: Unremarkable. Normal mediastinal contour. Bones/joints: No acute findings. Upper abdomen: Normal distended stomach with gas. IMPRESSION: No acute findings in the chest.
[2023-10-16 05:59] LABS: ABG HCO3 25 mmol/L (21-25); ABG Oxygen Saturation 100.4 % (94-97); ABG PCO2 38 mmHg (35-45); ABG PH 7.43 (7.35-7.45); ABG PO2 308 mmHg (83-108); ABG TCO2 26 mmol/L (19-24); Allen Test Performed? Yes
[2023-10-16] MEDS ORDERED: HYDROCORTISONE SUCCINATE 100 MG/2 ML VIAL ONE (06:20)
[2023-10-16] MEDS ORDERED: EPINEPHrine 10 ML SYRINGE (0.1 MG/ML) ONE (06:20)
[2023-10-16] MEDS ORDERED: SODIUM BICARB 8.4% 50 ML SYR (1 MEQ/ML) ONE (06:20)
[2023-10-16 06:27] LABS: MCHC 32.5 g/dL (31.0-37.0); MCV 98.4 fL (80.0-100.0); Platelet Count 339 k/uL (150-450); Poikilocytosis Slight; RBC 3.46 m/uL (4.30-5.90); RDW 14.7 % (11.5-15.5); WBC 21.9 k/uL (3.8-10.6)
[2023-10-16 06:31] LABS: Glucose,Whole Blood 137 mg/dL (70-110)
[2023-10-16 06:39] LABS: African American GFR (CKD) 38 (>60 ml/min/1.73 sqM); Anion Gap 11 mmol/L; Blood Urea Nitrogen 37 mg/dL (9-20); Carbon Dioxide 23 mmol/L (22-30); Chloride 101 mmol/L (98-107); Glucose 120 mg/dL (74-99); Non-African American GFR(CKD) 33 (>60 ml/min/1.73 sqM); Potassium 3.9 mmol/L (3.5-5.1); Sodium 135 mmol/L (137-145)
[2023-10-16] MEDS: VASOPRESSIN 60 UNIT in SODIUM CHLORIDE 0.9% 150 ML IV SCH (06:41)
[2023-10-16 06:56] LABS: INR 1.7 (<1.2); Prothrombin Time 17.5 sec (10.0-12.5)
--- NOTE | 2023-10-16 07:06 | XR ---
EXAM: XR Chest, 1 View CLINICAL HISTORY: pt intubation TECHNIQUE: Frontal view of the chest. COMPARISON: 09/23/23 FINDINGS: Lungs: Lungs are slightly underinflated but clear. No consolidation. Pleural space: Unremarkable. Heart: Cardiomegaly. Mediastinum: Unremarkable. Normal mediastinal contour. Bones/joints: No acute findings. Tubes, lines and devices: Tip of endotracheal tube is about 6 cm above the rand. Sidehole of the enteric tube is in the body of the stomach. IMPRESSION: Supporting tubes are in place.
[2023-10-16] MEDS: MAGNESIUM SULFATE-D5W PMX 1 GM in DEXTROSE/WATER 1 100ML.BAG IVPB SCH (07:13)
--- NOTE | 2023-10-16 08:08 | P.CNPUL ---
History of Present Illness Consult date: 10/16/23 Requesting physician: Darnell Cheney Reason for consult: other (Sepsis, septic shock) Chief complaint: Altered mental status, febrile, and noted to be hypotensive at the [facility] History of present illness: Patient is a 73-year-old white male with past for atrial fibrillation, hypertension, hyperlipidemia, and right lower extremity cellulitis. Patient had recent hospitalization 09/17/2023 through 10/02/2023 chiefly for right lower extremity cellulitis. Patient was also noted to have C. difficile colitis at this time. Treated by infectious disease and ultimately discharged back to [facility] on oral vancomycin. Patient returned to emergency department from [facility] early this morning. Reportedly noted to be more lethargic, febrile, and having episodes of hypotension at outside facility. He was having intermittent runs of wide-complex tachycardia, and was reportedly cardioverted in route and again in the emergency department. This is likely atrial fibrillation with aberrancy. Patient was started on amiodarone protocol. While in the emergency department, patient was being worked up for sepsis. CBC: WBC count 21.9, hemoglobin 11, hematocrit 34, platelets 339. CMP: Sodium 135, potassium 3.9, chloride 101, serum bicarb 23, BUN 37, creatinine 1.96, glucose 120. I evaluated this patient immediately on arrival to the intensive care unit. He was unresponsive, pale, with weak thready pulse. Rapid sequence intubation was carried out by the ELECT[employer] GENERATOR ASSEMBLER, for airway protection. Postintubation chest x-ray showed endotracheal tube tip 6 cm above the rand. Orogastric tube was seen w ithin the stomach. Initial ventilator settings include assist-control, respiratory rate 20, tidal volume 500, FiO2 100%, and PEEP of 5. ABGs done in the settings include a PaO2 of 308, pCO2 of 38, pH of 7.43. I established a right brachial arterial line, and noted the patient to be profoundly hyp otensive. Patient was started on combination of norepinephrine and vasopressin, and quickly maxed out on these doses. Norepinephrine infusing at 0.5 mcg/kg/min and vasopressin at physiological dose. He was also fluid resuscitated, with a total of 4 L of crystalloid fluid. Also, received a stress dose of Solu-Cortef. He is febrile, with a Tmax of 103.4 F. On evaluation of the patient's right lower extremity the Kennedy bandage was removed and a total of approximately 1 L of purulent fluid drained from an abscess in his leg. Patient was empirically covered on a combination of Zosyn and vancomycin. Shortly after his arrival to the intensive care unit, patient had a PEA cardiac arrest. Sound physicians did respond initially to the CODE BLUE. ACLS protocol was followed. I did call and update patient's , Acacia, on patient's critical condition. She has asked to make this patient a DO NOT RESUSCITATE. She is asking to forego any further resuscitation attempts. Review of Systems ROS unobtainable: due to endotracheal tube Past Medical History Past Medical History: Atrial Fibrillation, Hyperlipidemia, Hypertension Additional Past Medical History / Comment(s): chronic back pain, four buldging discs to back History of Any Multi-Drug Resistant Organisms: None Reported Past Surgical History: Heart Catheterization, Orthopedic Surgery Additional Past Surgical History / Comment(s): right knee sx Past Psychological History: No Psychological Hx Reported Smoking Status: Never smoker Medications and Allergies Home Medications Medication Instructions Recorded Confirmed Type Atorvastatin [Lipitor] 40 mg PO HS 05/20/19 09/17/23 History tiZANidine [Zanaflex] 4 mg PO BID@0900,1200 05/20/19 09/17/23 History tiZANidine [Zanaflex] 8 mg PO HS 05/20/19 09/17/23 History Acetaminophen [Tylenol Extra 1,000 mg PO TID 09/17/23 09/17/23 History Strength] Aspirin EC [Ecotrin Low Dose] 81 mg PO DAILY 09/17/23 09/17/23 History Albuterol Nebulized [Ventolin 2.5 mg INHALATION RT-QID PRN ml 09/28/23 Rx Nebulized] Enoxaparin [Lovenox] 40 mg SQ DAILY each 09/28/23 Rx Fluticasone Nasal [place] [Flonase 2 spray EA NOSTRIL DAILY PRN ml 09/28/23 Rx Nasal [place]] Furosemide [Lasix] 40 mg PO BID@0900,1600 tab 09/28/23 Rx HYDROcodone/APAP 7.5-325MG [[place] 1 each PO Q4H PRN #6 tab 09/28/23 Rx 7.5-325] Ipratropium-Albuterol Nebulize 3 ml INHALATION RT-QID each 09/28/23 Rx [Duoneb 0.5 mg-3 mg/3 ml Soln] Pantoprazole Sodium [Protonix] 40 mg PO DAILY #30 tab 09/28/23 Rx Vancomycin HCl [Vancocin HCl] 250 mg PO QID 10 Days #40 cap 09/28/23 Rx Metoprolol Tartrate [Lopressor] 25 mg PO BID #60 10/02/23 09/17/23 Rx Allergies Allergy/AdvReac Type Severity Reaction Status Date / Time No Known Allergies Allergy Verified 10/16/23 02:26 Physical Exam Vitals: Vital Signs Temp Pulse Resp BP BP Pulse Ox FiO2 10/16/23 05:47 100 10/16/23 05:43 100 10/16/23 05:15 154 H 44 H 97 10/16/23 05:00 165 H 43 H 97 10/16/23 04:45 102 H 41 H 188/122 98 10/16/23 04:30 105 H 40 H 144/51 97 10/16/23 04:00 100.7 F H 107 H 36 H 187/60 96 10/16/23 03:45 22 165/79 94 L 10/16/23 03:34 24 10/16/23 03:31 112 H 24 94/22 98 10/16/23 03:00 190 H 85/65 97 10/16/23 02:18 103.4 F H 130 H 20 72/36 86 L Intake and Output 10/15/23 10/16/23 10/16/23 22:59 06:59 14:59 Intake Total 8.101 Balance 8.101 Intake: Intake, IV Titration 8.101 Amount Norepinephrine 4 mg In 8.101 Sodium Chloride 0.9% 250 ml @ 0.03 MCG/KG/MIN 19. 442 mls/hr IV .Q13H4M [facility] Rx#:[id number] Other: Weight 170.097 kg GENERAL EXAM: Unresponsive, agonal breathing pattern, pale, cold extremities, thready pulse HEAD: Normocephalic and atraumatic EYES: Sluggish reaction of pupils, equal size. NOSE: Clear with pink turbinates. THROAT: No erythema or exudates. NECK: No masses, no JVD. CHEST: No chest wall deformity. LUNGS: Equal air entry with no crackles, wheeze, rhonchi or dullness. Currently being bagged mask ventilated, well [employer]SEMBLER is setting up for rapid sequence intubation CVS: S1 and S2 normal with no audible murmur, irregular rhythm. No extra heart sounds ABDOMEN: No hepatosplenomegaly, active bowel sounds, no guarding or rigidity. SPINE: No scoliosis or deformity SKIN: No rashes CENTRAL NERVOUS SYSTEM: No focal deficits, tone is normal in all 4 extremities. EXTREMITIES: Right lower extremity erythema and edematous, fluctuant, draining purulent drainage approximately 1 L. peripheral pulses are intact. Results - Laboratory Findings CBC and BMP: 10/16/23 06:00 10/16/23 06:00 ABG ABG pH 7.43 (7.35-7.45) 10/16/23 05:57 ABG pCO2 38 mmHg (35-45) 10/16/23 05:57 ABG pO2 308 mmHg (83-108) H 10/16/23 05:57 ABG O2 Saturation 100.4 % (94-97) H 10/16/23 05:57 PT/INR, D-dimer PT 17.5 sec (10.0-12.5) H 10/16/23 06:00 INR 1.7 (<1.2) H 10/16/23 06:00 D-Dimer 5.33 mg/L FEU (<0.60) H 10/16/23 06:00 Abnormal lab findings: Abnormal Labs 10/16/23 10/16/23 10/16/23 02:24 03:57 03:57 WBC 12.2 H RBC 3.19 L Hgb 10.4 L D Hct 31.2 L Neutrophils # 9.9 H Lymphocytes # 0.3 L Monocytes # 1.9 H PT 24.6 H INR 2.5 H APTT 39.1 H D-Dimer ABG pO2 ABG Total CO2 ABG O2 Saturation Sodium Potassium Chloride Carbon Dioxide BUN Creatinine Glucose POC Glucose (mg/dL) 137 H Plasma Lactic Acid Jonathan Calcium Magnesium Total Bilirubin Alkaline Phosphatase Troponin I Total Protein Albumin 10/16/23 10/16/23 10/16/23 03:57 03:57 03:57 WBC RBC Hgb Hct Neutrophils # Lymphocytes # Monocytes # PT INR APTT D-Dimer ABG pO2 ABG Total CO2 ABG O2 Saturation Sodium Potassium 2.9 L Chloride 112 H Carbon Dioxide 18 L BUN 27 H Creatinine Glucose 108 H POC Glucose (mg/dL) Plasma Lactic Acid Jonathan 3.0 H* Calcium 5.5 L* Magnesium 1.2 L Total Bilirubin 1.7 H Alkaline Phosphatase 31 L Troponin I Total Protein 4.0 L Albumin 1.6 L 10/16/23 10/16/23 10/16/23 05:17 05:57 06:00 WBC 21.9 H RBC 3.46 L Hgb 11.0 L Hct 34.0 L Neutrophils # Lymphocytes # Monocytes # PT INR APTT D-Dimer ABG pO2 308 H ABG Total CO2 26 H ABG O2 Saturation 100.4 H Sodium Potassium Chloride Carbon Dioxide BUN Creatinine Glucose POC Glucose (mg/dL) 122 H Plasma Lactic Acid Jonathan Calcium Magnesium Total Bilirubin Alkaline Phosphatase Troponin I Total Protein Albumin 10/16/23 10/16/23 10/16/23 06:00 06:00 06:00 WBC RBC Hgb Hct Neutrophils # Lymphocytes # Monocytes # PT 17.5 H INR 1.7 H APTT D-Dimer 5.33 H ABG pO2 ABG Total CO2 ABG O2 Saturation Sodium 135 L Potassium Chloride Carbon Dioxide BUN 37 H Creatinine 1.96 H Glucose 120 H POC Glucose (mg/dL) Plasma Lactic Acid Jonathan Calcium 8.0 L Magnesium Total Bilirubin Alkaline Phosphatase Troponin I 0.145 H* Total Protein Albumin 10/16/23 06:30 WBC RBC Hgb Hct Neutrophils # Lymphocytes # Monocytes # PT INR APTT D-Dimer ABG pO2 ABG Total CO2 ABG O2 Saturation Sodium Potassium Chloride Carbon Dioxide BUN Creatinine Glucose POC Glucose (mg/dL) 137 H Plasma Lactic Acid Jonathan Calcium Magnesium Total Bilirubin Alkaline Phosphatase Troponin I Total Protein Albumin - Diagnostic Findings Chest x-ray: image reviewed Assessment and Plan Assessment: PEA cardiac arrest, ACLS protocol followed, ROSC was achieved after approximately 10 minutes. I did call and update patient's , Acacia, who is the patient's decision maker. I did elaborate on the patient's critical con dition and overall poor prognosis. She is asking the patient be made DO NOT RESUSCITATE and no further resuscitation attempts be made. Patient will likely soon, current blood pressure 40/20 mmhg. Severe sepsis and septic shock, source likely right lower extremity abscess/cellulitis, Kennedy bandage was removed and approximately 1 L of purulent fluid drained from right lower extremity abscess. Hypotension and septic shock, refractory to fluid resuscitation with a total of 4 L of crystalloid fluid, quickly maxed out on vasopressors including norepinephrine and vasopressin Acute hypoxemic respiratory failure, requiring intubation mechanical ventilator, secondary to above secondary to above, postintubation chest x-ray shows the endotracheal tube 6 cm above the rand, orogastric tube coursing within the stomach, low lung volumes without obvious cardiopulmonary process. Acute febrile illness Acute leukocytosis Lactic acidosis Electrolyte abnormalities, including: hypomagnesemia and hypocalcemia. These were replaced per protocol. Atrial fibrillation, with rapid ventricular response, status post cardioversion x 3 and started on IV amiodarone protocol Elevated troponins, likely secondary to profound sepsis and septic shock, and supply/demand mismatch Acute kidney injury, secondary to hypotension and ATN Elevated D-dimer, likely secondary to profound sepsis History of C. difficile colitis, no bowel movements reported History of hypertension History of hyperlipidemia Morbid obesity, with a BMI of 52.3 kg/m Plan: Patient's medications, labs, imaging reviewed Immediately on arrival to the intensive care unit, patient was noted to be unresponsive, profoundly hypotensive, and then critical condition. Rapid sequence intubation was carried out by E[employer] ASSEMBLER immediately. Postintubation chest x-ray was noted Follow-up ABGs were noted. A right brachial arterial line was established, and patient was noted to be profoundly hypotensive, started on a combination of norepinephrine and vasopressin, quickly maxed out on these vasopressors. Patient also was fluid resuscitated with a total of 4 L crystalloid fluid boluses. I did also attempt to give the patient a stress dose of Solu-Cortef. Patient was empirically covered on a combination of vancomycin and Zosyn. A ppropriate cultures were collected and sent. I did call my supervising physician Dr. Park, and updated him on the patient's current clinical condition. No further recommendations were made, as patient is currently receiving maximal support. Unfortunately, despite maximal efforts the patient did subsequently have a PEA cardiac arrest. ACLS protocol was followed. Sound physicians did respond to CODE BLUE. I did call and update the patient's , Acacia, about the patient's overall very poor prognosis despite maximal support. She has asked me to make the patient a DO NOT RESUSCITATE. She does not want any further resuscitative efforts. Patient will likely soon, current blood pressure 40/20 mmhg. I have personally seen and examined the patient, performed the documentation and the assessment and plan as written. Number of minutes spent on the visit:20 Time with Patient: Greater than 30
--- NOTE | 2023-10-16 08:09 | P.PCN ---
Date of Procedure: 10/16/23 Preoperative Diagnosis: Sepsis, septic shock Postoperative Diagnosis: Sepsis, septic shock Procedure(s) Performed: Insertion of a right brachial arterial line Indications for Procedure: Continuous blood pressure monitoring and frequent blood draws Description of Procedure: Informed consent was obtained, and a procedural timeout was performed . The patient was placed in supine position. The right brachial region was prepared in a sterile fashion, and a sterile drape was applied. The right brachial artery was palpated, easily cannulated, and a guidewire was placed. A Cook catheter was inserted over the guidewire, and the guidewire was removed. There was good arterial blood flow, good arterial waveform, and no complications. The line was secured with using a 3-0 silk suture.
[2023-10-16 09:02] LABS: Band Neutrophils % 3 %; Basophils # (M) 0.22 k/uL (0-0.2); Lymphocytes # (M) 0.44 k/uL (1.0-4.8); Monocytes # (M) 0.88 k/uL (0-1.0); Neutrophils % (M) 91 %; Nucleated Red Blood Cells 0 /100 WBC (0-0); Total Cells Counted 200
[2023-10-16] MEDS: MORPHINE SULFATE 4 MG/ML SYRINGE IV PRN (10:13)
[2023-10-16] MEDS: LORazepam 2 MG/ML INJ IV PRN (10:13)
[2023-10-16] MEDS ORDERED: SCOPOLAMINE 1 MG/72 HR PATCH TRANSDERM SCH (10:15)
[2023-10-16] MEDS: PIPERACILLIN-TAZOBACTAM 3.375 GM in SODIUM CHLORIDE 0.9% 100 ML IVPB SCH (10:21)
[2023-10-16] MEDS: AMIODARONE 450 MG in DEXTROSE 5% IN WATER 250 ML IV SCH (10:22)
[2023-10-16] MEDS: MORPHINE SULFATE (100 MG/2 ML) 100 MG in SODIUM CHLORIDE 0.9% 100 ML IV SCH (12:53)
--- NOTE | 2023-10-16 14:19 | CONS ---
CONSULTATION CHIEF COMPLAINT: Atrial fibrillation. HISTORY OF PRESENT ILLNESS: This is a 73-year-old gentleman who is admitted to hospital with fever, hypotension, and altered mental status at the [facility] and was found to be in atrial fibrillation with rapid ventricular rate. He has right lower extremity cellulitis and had been hospitalized recently. He also was noted to have C difficile colitis. He was at the [facility], was found to be febrile, lethargic, and had hypotension due to which he was brought to the emergency room. The patient was having runs of wide-complex tachycardia, underwent cardioversion by the EMS en route to hospital, was in atrial fibrillation with rapid ventricular rate, apparently was short again in the ER and had been on amiodarone and subsequently converted to sinus. He was profoundly hypotensive and had been on antibiotics and pressors and at the time of my evaluation, his blood pressures were in the 50s systolic and apparently the audio visual director after discussions with the family have decided not to resort any further heroic measures. He was no code at this time. At the time of my evaluation, the patient remains in sinus rhythm. His heart rate was 88 beats per minute. Blood pressure was in the 40s to 50 systolic on pressors. PAST MEDICAL HISTORY: Significant for COPD, cellulitis. MEDICATIONS: As charted. ALLERGIES: No known drug allergies. FAMILY HISTORY: I am unable to obtain from the patient. SOCIAL HISTORY: I am unable to obtain from the patient. REVIEW OF SYSTEMS: I am unable to obtain from the patient. PHYSICAL EXAMINATION: VITAL SIGNS: On exam, heart rate is 88 beats per minute, intubated on vent. Blood pressure is 50/30. NECK: There is no jugular venous distention. CHEST: Reveals diminished air entry bilaterally with occasional rhonchi. HEART: Reveals first and second heart sounds and a systolic murmur at the apex. ABDOMEN: Soft. EXTREMITIES: Reveal edema and cellulitis. LABORATORY DATA: Labs show that the D-dimer is elevated at 5.3. White cell count is elevated at 21, hemoglobin is 11. ASSESSMENT AND PLAN: 1. Atrial flutter with rapid ventricular rate. 2. Septicemia with shock. 3. Cellulitis. 4. Profound hypotension. PLAN: The patient's prognosis is poor. He continues to be hypotensive with all the pressors on board. No other cardiac intervention or workup at this time. We will follow him on an as-needed basis. MMODL / IJN: [id number] /
[2023-10-16 14:36] VITALS: BP 49/34; PULSE 72; RESP 24; TEMP 98.7
[2023-10-16] MEDS ORDERED: VANCOMYCIN 2,500 MG in SODIUM CHLORIDE 0.9% 500 ML 500 ML IVPB SCH (18:00)
--- NOTE | 2023-10-18 12:21 | CDI ---
Documentation Clarification Form Date: 10/18/2023 12:02:30 PM From: Kathleen Ramos Phone: Admit Date: 10/16/2023 04:36:00 AM Patient Name: Rory Vaughn Visit Number: [id number] Discharge Date: 10/16/2023 06:26:00 PM ATTENTION: The Clinical Documentation Specialists (CDI) and [facility] Coding Staff appreciate your assistance in clarifying documentation. Please respond to the clarification below the line at the bottom and electronically sign. The CDI & [facility] Coding staff will review the response and follow-up if needed. Please note: Queries are made part of the Legal Health Record. If you have any questions, please contact the author of this message via ITS. Dr. Zeynep Park Your patient has diagnostic/radiology results: Pasteurella multocida and Klebsiella oxytoca. Please clarify if there is an additional diagnosis and/or clinical significance related to this result. History/Risk Factors: 73yo M, sepsis w shock, cellulitis/abscess, profoundhypotension, AHRF, A Fib/ flutter, ATN, RBBB, hypomagnesemia, CBP, COPD,hypocalcemia, morbid obesity, HLD, wide-complextachycardia Clinical indicators: Patient had recent hospitalization 09/17/2023 through 10/02/2023 chiefly for right lower extremity cellulitis. Treated byinfectious diseaseand ultimately discharged back to [facility] on oral vancomycin. Treatment: approximately 1 L of purulent fluid drained fromright lower extremity abscess. Patient was empirically covered on a combination of Zosyn and vancomycin. Shortly after his arrival to the intensive care unit, patient had aPEA cardiac arrest, made comfort care and patient . Is there an additional diagnosis and/or clinical significance related to the above diagnostic/radiology result? [ x ] Sepsis due to Pasteurella multocida and Klebsiella oxytoca [ ] Sepsis is not due to Pasteurella multocida and Klebsiella oxytoca [ ] Result is not clinically significant (no additional diagnosis) [ ] Other, please specify [ ] Unable to determine (Template Last Reviewed: May 2020) MTDD
== END 2023-10-16 18:26 | disposition expired | DRG 867 ==
LOC: EC 02:16 → 2SICU 04:36
PROVIDERS: ADMIT Hospitalist; ATTEND Hospitalist
PROC: 03HY32Z Insertion of Monitoring Device into Upper Artery, Percutaneous Approach (ICD-10-PCS; principal; 2023-10-16)
PROC: 4A133B1 Monitoring of Arterial Pressure, Peripheral, Percutaneous Approach (ICD-10-PCS; 2023-10-16)
PROC: 4A133J1 Monitoring of Arterial Pulse, Peripheral, Percutaneous Approach (ICD-10-PCS; 2023-10-16)
PROC: 5A2204Z Restoration of Cardiac Rhythm, Single (ICD-10-PCS; 2023-10-16)
PROC: 3E033RZ Introduction of Antiarrhythmic into Peripheral Vein, Percutaneous Approach (ICD-10-PCS; 2023-10-16)
PROC: 3E033XZ Introduction of Vasopressor into Peripheral Vein, Percutaneous Approach (ICD-10-PCS; 2023-10-16)
PROC: 5A1935Z Respiratory Ventilation, Less than 24 Consecutive Hours (ICD-10-PCS; 2023-10-16)
PROC: 0BH18EZ Insertion of Endotracheal Airway into Trachea, Via Natural or Artificial Opening Endoscopic (ICD-10-PCS; 2023-10-16)
PROC: 0J9N0ZZ Drainage of Right Lower Leg Subcutaneous Tissue and Fascia, Open Approach (ICD-10-PCS; 2023-10-16)
PROC: 5A12012 Performance of Cardiac Output, Single, Manual (ICD-10-PCS; 2023-10-16)
DX: A28.0 Pasteurellosis (principal); A41.89 Other specified sepsis; J96.01 Acute respiratory failure with hypoxia; N17.0 Acute kidney failure with tubular necrosis; R65.21 Severe sepsis with septic shock; Z68.43 Body mass index [BMI] 50.0-59.9, adult; I48.92 Unspecified atrial flutter; E87.20 Acidosis, unspecified; L02.415 Cutaneous abscess of right lower limb; L03.115 Cellulitis of right lower limb; I46.8 Cardiac arrest due to other underlying condition; J44.9 Chronic obstructive pulmonary disease, unspecified; E66.01 Morbid (severe) obesity due to excess calories; I48.91 Unspecified atrial fibrillation; Z51.5 Encounter for palliative care; Z66 Do not resuscitate; E83.51 Hypocalcemia; I10 Essential (primary) hypertension; I45.10 Unspecified right bundle-branch block; E78.5 Hyperlipidemia, unspecified; Z79.02 Long term (current) use of antithrombotics/antiplatelets; Z79.51 Long term (current) use of inhaled steroids; Z79.1 Long term (current) use of non-steroidal anti-inflammatories (NSAID); Z79.82 Long term (current) use of aspirin; Z86.19 Personal history of other infectious and parasitic diseases; G89.29 Other chronic pain; M54.9 Dorsalgia, unspecified; E87.6 Hypokalemia; E83.42 Hypomagnesemia; B96.1 Klebsiella pneumoniae [K. pneumoniae] as the cause of diseases classified elsewhere; Z79.899 Other long term (current) drug therapy
CPT/HCPCS: 36415; 71045; 80048; 80053; 82805; 83605; 83735; 84145; 84484; 85025; 85379; 85610; 85730; 87040; 87070; 87075; 87205; 92950; 92960; 93005; 94002; 96365; 96366; 96367; 96368; 99291